=== PATIENT | female | born 1950 | race Caucasian/White ===

== ENCOUNTER 2021-07-09 15:30 | Emergency (ER) | payer OTHER ==
--- OUTSIDE RECORDS SUMMARY | 2021-07-09 15:34 | XMS REPORT | Continuity of Care Document ---
:1950 Author Organization [facility] t Address [address] [place] [address] Care Team Providers Name Role Phone Provider, [facility] Attending Clinician Unavailable Hermes RN Attending Clinician Unavailable Only, Jeffy Test Attending Clinician Unavailable Mamadou JOB CAPTAIN Attending Clinician Karol RN, T Attending Clinician Unavailable Clinton ALEXANDERP Attending Clinician PENNIE Attending Clinician Unavailable LESIA Attending Clinician Unavailable KIRBY Attending Clinician Unavailable GABRIELLE Attending Clinician Unavailable YINA Attending Clinician Unavailable Halina Attending Clinician Unavailable OSMAN Attending Clinician Unavailable RILEY Attending Clinician Unavailable Physician, Primary or Family Admitting Clinician Unavailabl e Payers Payer Name Policy Type Policy Number Effective Date Expiration Date S ource Problems Condition Condition Condition Status Onset Resolution Last Treating Co mments Source Name Details Category Date Date Treatment Clinician Date Z.31 - Diagnosis Active 2016-08-17 M emoria ENCNTR - 11:09:00 l SCREEN Z12.31 - :01: Blaine banks MAMMOGRAM ENCNTR 00 FOR MA SCREEN MAMMOGRAM FOR MA Active 07/15/2016 CECILIO Christine V76.12 - Diagnosis Active 2013-12-21 M emoria SCREEN - 12:57:00 l MAMMOGRA V76.12 - 00:01: Obed lowry SCREEN 00 MAMMOGRA Active 12/09/2013 CECILIO Christine Allergies, Adverse Reactions, Alerts Allergy Allergy Status Severity Reaction(s) Onset Inactive Treating Comm ents Source Name Type Date Date Clinician [place] DA Active PR 2009-0 [facility] [place] [facility] [place] DA Active PR ABDOMINAL 2009-0 [facility] [place] [facility] [place] [facility] PENICILL DA Active U ABDOMINAL 2008-0 [facility] [place] -[facility] [place] [facility] Social History Social Habit Start Date Stop Date Quantity Comments Source Exposure to Not sure [facility] SARS-CoV-2 (event) [facility] [place] Social History 2016-09-07 2016-09-07 [facility] 04:59:00 04:59:00 Sex Assigned At [address] 1950 [facility] 00:00:00 00:00:00 [facility] Smoking Status Start Date Stop Date Source Unknown if ever smoked [facility] Medications This patient has no known medications. Procedures This patient has no known procedures. Encounters Start End Encounter Admission Attending Care Care Encounter Source Date/Time Date/Time Type Type Clinicians Facility Department ID 2021-07-06 2021-07-06 Letter Provider, [facility] [id number] [facility] 00:00:00 00:00:00 (Out) Ang Db HEALTH 350.1.13.10 it y of Urgent Care [place] 4.2.7.2.686 [place] JERRY?BLEA [id number] [address] MEDICAL OFFICE BUILDING 2021-07-04 2021-07-04 Telephone JOSE ARMANDO Mirza [id number] Univers 00:00:00 00:00:00 Cinda CAIN 350.1.13.10 it y of HOSPITAL 4.2.7.2.686 [place] as [id number] [address] 2021-07-03 2021-07-03 Laboratory Only, Ang Db Test [facility] 1.2.8 40.114 [id number] Univers 10:45:00 11:00:00 Only Green, Alexandra HEALTH 350.1.13.10 ity of BLANCH 4.2.7.2.686 Mik as JERRY?BLEA [id number] Wy dical [address] MEDICAL OFFICE BUILDING 2021-06-25 2021-06-25 Letter Provider, [facility] [id number] Univers 00:00:00 00:00:00 (Out) Ang Db HEALTH 350.1.13.10 it y of Urgent Care SURGICAL 4.2.7.2.686 [place] SPECIALTI [id number] [address] 2021-06-23 2021-06-23 Letter JOSE ARMANDO Roberson [id number] Univers 00:00:00 00:00:00 (Out) Kaley Bolaños CAIN 350.1.13.10 it y of HOSPITAL 4.2.7.2.686 Mik as [id number] [address] 2021-06-22 2021-06-22 Laboratory Only, Ang Db Test [facility] 1.2.8 40.114 [id number] Univers 13:15:00 13:30:00 Only Marcella Alonzoy HEALTH 350.1.13.10 ity of [place]AN[place] 4.2.7.2.686 Mik as JERRY?BLEA [id number] [address] MEDICAL OFFICE [facility] 2021-05-31 2021-05-31 Outpatient PENNIE [facility] [id number] [place] 00:00:00 00:00:00 YADIEL [address] 2021-04-27 2021-04-27 Outpatient GRAF, [facility] [id number] [place] 00:00:00 00:00:00 RUDY [address] 2021-04-27 2021-04-27 Outpatient KIRBY BERTO [facility] [id number] [place] 00:00:00 00:00:00 687 [address] 2021-04-19 2021-04-19 Outpatient GABRIELLE [facility] [id number] [place] 00:00:00 00:00:00 TAISHA 952 [address] 2021-03-30 2021-03-30 Outpatient PENNIE [facility] [id number] [place] 00:00:00 00:00:00 YADIEL [address] 2021-02-15 2021-02-15 Outpatient GABRIELLE [facility] [id number] [place] 00:00:00 00:00:00 TAISHA [address] 2021-01-18 2021-01-18 Outpatient GABRIELLE, [facility] [id number] [place] 00:00:00 00:00:00 TAISHA [address] 2020-10-12 2020-10-12 Outpatient GABRIELLE, [facility] [id number] [place] 00:00:00 00:00:00 TAISHA [address] 2020-09-29 2020-10-02 Outpatient BRAN, [facility] [id number] [place] 00:00:00 00:00:[address] 2020-09-22 2020-09-22 Outpatient BRAN, [facility] [id number] [place] 00:00:00 00:00:00 NANI [address] 2020-09-22 2020-09-22 Outpatient BRAN, [facility] [id number] [place] 00:00:00 00:00:00 NANI 7[address] 2020-09-21 2020-09-21 Outpatient Halina, [facility] [id number] [facility] 12:00:00 12:00:00 Monica [id number] [facility] 2020-09-07 2020-09-07 Outpatient BRAN, [facility] [id number] [place] 00:00:00 00:00:00 NANI [address] 2020-09-07 2020-09-07 Outpatient BRAN, [facility] [id number] [place] 00:00:00 00:00:00 NANI [address] 2020-09-07 2020-09-07 Outpatient BRAN, [facility] [id number] [place] 00:00:00 00:00:00 NANI [address] 2020-09-01 2020-09-01 Outpatient [facility] [id number] [place] 00:00:00 00:00:[address] 2020-08-04 2020-08-04 Outpatient ROBBEN, [facility] [id number] [place] 00:00:00 00:00:00 ERNIE [address] 2020-07-14 2020-07-14 Outpatient [facility] [id number] [place] 00:00:00 00:00:[address] 2020-06-30 2020-06-30 Outpatient BRAN, [facility] [id number] [place] 00:00:00 00:00:00 NANI [address] 2020-06-22 2020-06-22 Outpatient RILEY, [facility] [id number] [place] 00:00:00 00:00:00 DONTAE [address] 2020-06-08 2020-06-08 Outpatient GABRIELLE, [facility] [id number] [place] 00:00:00 00:00:00 TAISHA [address] 2020-06-02 2020-06-02 Outpatient BRAN, [facility] [id number] [place] 00:00:00 00:00:00 NANI [address] 2020-05-17 2020-05-17 Outpatient RILEY, [facility] [id number] [place] 00:00:00 00:00:00 DONTAE [address] 2020-04-28 2020-04-28 Outpatient BRAN, [facility] [id number] [place] 00:00:00 00:00:00 NANI [address] 2020-04-28 2020-04-28 Outpatient BRAN, [facility] [id number] [place] 00:00:00 00:00:00 NANI [address] 2020-04-20 2020-04-20 Outpatient BRAN, [facility] [id number] [place] 00:00:00 00:00:00 NANI [address] 2020-03-10 2020-03-10 Outpatient BRAN, [facility] [id number] [place] 00:00:00 00:00:00 NANI [address] 2020-03-10 2020-03-10 Outpatient GABRIELLE, [facility] [id number] [place] 00:00:00 00:00:00 TAISHA [address] 2020-02-24 2020-02-24 Outpatient GABRIELLE, [facility] [id number] [place] 00:00:00 00:00:00 TAISHA [address] 2020-02-18 2020-02-18 Outpatient GABRIELLE, [facility] [id number] [place] 00:00:00 00:00:00 TAISHA [address] 2020-02-11 2020-02-11 Outpatient GABRIELLE, [facility] [id number] [place] 00:00:00 00:00:00 TAISHA [address] 2020-02-04 2020-02-04 Outpatient GABRIELLE, [facility] [id number] [place] 00:00:00 00:00:00 TAISHA [address] 2020-01-28 2020-01-28 Outpatient GABRIELLE, [facility] [id number] [place] 00:00:00 00:00:00 TAISHA [address] 2019-12-29 2019-12-29 Outpatient GABRIELLE, [facility] [id number] [place] 00:00:00 00:00:00 TAISHA [address] 2019-11-10 2019-11-10 Outpatient GABRIELLE, [facility] [id number] [place] 00:00:00 00:00:00 TAISHA [address] 2019-09-27 2019-09-28 Outpatient GABRIELLE, [facility] [id number] [place] 00:00:00 00:00:00 TAISHA [address] 2019-08-20 2019-08-20 Outpatient Halina, [facility] [id number] [facility] 12:00:00 12:00:00 Monica [id number] [facility] 2019-08-12 2019-08-12 Outpatient GABRIELLE, [facility] [id number] [place] 00:00:00 00:00:00 TAISHA [address] 2016-09-06 2016-09-07 Outpt Diag nullFlavo [facility] [id number] [place] 18:47:00 04:59:00 Services r Outpatient 08 l Imaging [facility] 2016-08-17 2016-08-18 Outpt Diag nullFlavo [facility] [id number] [place] 17:00:00 05:59:00 Services r Outpatient 07 l Imaging [facility] 2014-12-16 2014-12-17 Outpt Diag nullFlavo [facility] [id number] [place] 20:02:00 04:59:00 Services r Outpatient 06 l Imaging Fawad [place] 2013-12-16 2013-12-17 Outpt Diag nullFlavo [facility] [id number] [place] 19:36:00 04:59:00 Services r Outpatient 05 l Imaging Fawad [place] 2013-12-14 2013-12-15 Outpt Diag nullFlavo [facility] [id number] [place] 21:14:00 04:59:00 Services r Outpatient 04 l Katie Celestin [place] 2011-05-28 2011-05-28 [facility] [id number] Mem[place] 14:13:00 14:13:00 00 l Fawad Results This patient has no known results.
[2021-07-09] MEDS ORDERED: ACETAMINOPHEN 500 MG TAB ONE (16:41)
--- NOTE | 2021-07-09 17:11 | RAD REPORT ---
EXAM DESCRIPTION: RAD - Hip Right 2 View - 07/09/2021 5:05 pm CLINICAL HISTORY: PAIN COMPARISON: No comparisons FINDINGS: AP and frog-leg views of the right hip were obtained. Film technique was not optimal. There is no fracture or dislocation. No AVN or focal head abnormality . Degenerative changes are present along the superior acetabular rim. Medial joint space is narrowed. SI joint degenerative change seen on the right. Sacral ala on the right appears intact but is too ob scured by bowel for full assessment on this study. No diastases of the SI joint or pubic symphysis. IMPRESSION: Negative right hip examination for acute findings.
--- NOTE | 2021-07-09 17:12 | RAD REPORT ---
EXAM DESCRIPTION: RAD - Hip Left 2 View - 07/09/2021 5:05 pm CLINICAL HISTORY: PAIN, fall COMPARISON: No comparisons FINDINGS: AP and frogleg views of the left hip were obtained. There is no fracture or dislocation. No acute or destructive bony process seen. Mild degenerative ch anges are present along the superior acetabular rim, less prominent than seen on the right. Medial kailey int space is narrowed. Mild SI joint degenerative change seen. Sacral ala on the left is too obscured by bowel content to allow assessment on this examination. No suspicious soft tissue finding. Arterial tree calcifications are present. IMPRESSION: Negative left hip examination for acute findings.
--- NOTE | 2021-07-09 17:13 | RAD REPORT ---
EXAM DESCRIPTION: RAD - Humerus Left - 07/09/2021 5:05 pm CLINICAL HISTORY: Arm and shoulder pain, fall COMPARISON: None. FINDINGS: No fracture is identified. There is no dislocation or periosteal reaction noted. No forei gn body or other soft tissue abnormality. No significant AC joint finding. Acromial humeral joint spa ce is normal. IMPRESSION: Negative left humerus examination for acute or significant finding.
--- NOTE | 2021-07-09 17:15 | RAD REPORT ---
EXAM DESCRIPTION: RAD - Chest Single View - 07/09/2021 5:05 pm CLINICAL HISTORY: TRAUMA, fall COMPARISON: None TECHNIQUE: AP portable chest image was obtained 07/09/2021 5:05 pm . FINDINGS: Lung volumes are low. No pneumothorax or pulmonary contusion. Stranding at the left base i s favored to be atelectasis rather than traumatic lung disease or infection. No failure or volume ove rload. Heart and vasculature are normal. No measurable pleural effusion and no pneumothorax. No acute bony abnormality seen. No acute aortic findings suspected. IMPRESSION: As detailed above, no acute cardiopulmonary finding suspected.
--- NOTE | 2021-07-09 17:24 | RAD REPORT ---
EXAM DESCRIPTION: CT - CTHCSPWOC - 07/09/2021 4:55 pm CLINICAL HISTORY: Fall, head injury, neck pain COMPARISON: No comparisons TECHNIQUE: Axial 5 mm thick images of the head were obtained. Axial 2 mm thick images of the cervic al spine were obtained with sagittal and coronal reconstruction images generated and reviewed. All CT scans are performed using dose optimization technique as appropriate and may include automated exposure control or mA/KV adjustment according to patient size. FINDINGS: No intracranial hemorrhage, mass, edema or acute intracranial finding. No suspicion for ac walker river infarction. No extra-axial fluid collections. Mastoid air cells and paranasal sinuses are clear o f acute finding. No globe or orbit abnormality seen. Atrophy and chronic ischemic changes are mild. V entricles are within normal range for any small amount of volume loss. Cervical body height and alignment are normal. C5-6 and C6-7 disc space narrowing present with minima l posterior endplate spurring. No significant bony foraminal encroachment changes identified. Mild fa cet joint degenerative changes are present. No fracture or acute bony abnormality. Central canal det ail is inherently limited. No paraspinal mass or hematoma. Condyles of the mandible are normally positioned in each bony glenoid fossa. Imaged portions of the mandible are intact. IMPRESSION: Negative CT head examination for acute or significant finding. Negative CT cervical spine examination for acute or significant finding.
[2021-07-09 17:26] LABS: Absolute Lymphocytes (CBC) 0.3 K/uL (0.7-4.9); Hematocrit 30.3 % (36.0-45.0); Lymphocytes % 8.5 % (15.3-44.8); MPV 9.4 fL (7.6-11.3); RBC Red Blood Cell Count 3.65 M/uL (3.86-4.86)
[2021-07-09 17:27] LABS: Protime INR 1.14
[2021-07-09 17:44] LABS: Bilirubin Direct 0.1 mg/dL (0-0.2); Bilirubin Total 0.4 mg/dL (0.2-1.0); Magnesium 1.5 mg/dL (1.8-2.4); Potassium 4.1 mmol/L (3.5-5.1); Protein, Total 6.6 g/dL (6.4-8.2)
[2021-07-09 17:47] LABS: SARS-COV-2 RT PCR POSITIVE (NEGATIVE)
--- NOTE | 2021-07-09 21:03 | RAD REPORT ---
EXAM DESCRIPTION: CT - Chest For Pe Angio - 07/09/2021 8:53 pm CLINICAL HISTORY: elevated troponin, weakness COMPARISON: Head C Spine Mpr Wo Con dated 07/09/2021 TECHNIQUE: Dynamically enhanced 3 mm thick images of the chest were obtained during administration o f approximately 150mL Isovue 370 IV contrast. Coronal and oblique MIP reconstruction images were gene rated and reviewed. Exam utilizes a protocol to evaluate the pulmonary arterial tree. All CT scans are performed using dose optimization technique as appropriate and may include automated exposure control or mA/KV adjustment according to patient size. FINDINGS: No pulmonary emboli are identified. The aorta as imaged shows no acute or suspicious finding. No pericardial thickening or effusion. Subpleural fibrotic stranding changes are present in each upper lobe. Interstitial and alveolar opaci ties are present and more pronounced in each posterior lower lung field. There is some consolidation in the posterior gutter on the left. Hilar reactive lymph nodes are present. No pleural effusion or p leural thickening. No mediastinal or hilar suspicious masses. No chest wall masses or abnormal axillary lymphadenopathy. IMPRESSION: No pulmonary emboli identified. Interstitial and alveolar opacification in each posterior gutter on this study without remote compari son. Posterior lung field findings are suspected to be acute infiltrates superimposed on scattered fi brotic lung change.
[2021-07-09] MEDS ORDERED: NA CHLORIDE 0.9% 500 ML ONE (21:45)
--- NOTE | 2021-07-10 00:13 | EDPHYS ---
Physician Documentation [facility] Name: Ana Grant Age: 71 yrs Sex: Female : 1950 Arrival Date: 07/09/2021 Time: 15:37 Bed 8 Private MD: ED Physician Ky Harvey HPI: 07/09 16:12 This 71 yrs old Female presents to ER via EMS with complaints of Weakness. pm1 16:12 The patient presents to the emergency department with weakness of the entire body, pm1 generalized weakness. Onset: The symptoms/episode began/occurred 3 week(s) ago. Context: Due to covid. Associated signs and symptoms: Pertinent positives: dizziness, Chills, fever, body aches. Two falls, fell 4 days ago and today. The patient has not experienced similar symptoms in the past. The patient has not recently seen a physician. 71-year-old patient was diagnosed with Covid approximately 3 weeks ago. Patient with presentation to the ER with complaints of generalized weakness since diagnosis of Covid. Reports chills fever and generalized body aches. She has had 2 falls. 4 days ago she had a fall with resulting injury of abrasion to left side of forehead. Patient had difficulty getting up and required her grandson to come and pick her up. Today patient fell while trying to bathe in the bathtub. With fall today no head injury, headache, neck pain, LOC.. Historical: - Allergies: 17:39 PENICILLINS; ph - PMHx: 17:39 diabetes mellitus; Leukemia; neuropathy; Suppressed Immune System; ph - Immunization history:: Adult Immunizations unknown, Client reports receiving the 2nd dose of the Covid vaccine. - Social history:: Smoking status: Patient denies any tobacco usage or history of. ROS: 16:12 Cardiovascular: Negative for chest pain, palpitations, and edema, Respiratory: Negative pm1 for shortness of breath, cough, wheezing, and pleuritic chest pain, Abdomen/GI: Negative for abdominal pain, nausea, vomiting, diarrhea, and constipation. 16:12 MS/Extremity: Negative for injury and deformity, Skin: Negative for injury, rash, and discoloration. 16:12 Constitutional: Positive for body aches, chills, fever, Negative for poor PO intake. 16:12 Neuro: Positive for dizziness, generalized weakness, Negative for headache, numbness, syncope, near syncope, tingling. 16:12 All other systems are negative. Exam: 16:12 Constitutional: This is a well developed, well nourished patient who is awake, alert, pm1 and in no acute distress. 16:12 Skin: Warm, dry with normal turgor. Normal color with no rashes, no lesions, and no evidence of cellulitis. MS/ Extremity: Pulses equal, no cyanosis. Neurovascular intact. Full, normal range of motion. Tenderness to left upper humerus, and bilateral hips. Patient able to move bilateral hips and shoulders with active FROM 16:12 Head/face: Noted is no obvious of injury or deformity except abrasion(s), of the left side of forehead - small healing abrasion. 16:12 Eyes: Exam is negative for acute changes, Extraocular movements: no acute changes, Conjunctiva: no acute changes, no injection. 16:12 ENT: Exam is negative for acute changes, Mouth: no acute changes, Lips: normal, moist, Oral mucosa: normal, pink and intact, moist. 16:12 Neck: Exam negative for External neck: no acute changes, C-spine: vertebral tenderness, is not appreciated, ROM/movement: no acute changes. 16:12 Cardiovascular: Exam negative for acute changes, Rate: normal, Rhythm: regular, Pulses: no pulse deficits are appreciated. 16:12 Respiratory: Exam negative for acute changes, respiratory distress, shortness of breath, Breath sounds: are clear throughout. 16:12 Abdomen/GI: Inspection: abdomen appears normal, Palpation: abdomen is soft and non-tender, in all quadrants. 16:12 Neuro: Exam negative for acute changes, Orientation: is normal, Mentation: is normal, Motor: is normal, moves all fours. Vital Signs: 15:38 BP 157 / 52; Pulse 93; Resp 18; Temp 100.0; Pulse Ox 96% on R/A; Weight 68.04 kg; ph Height 5 ft. 3 in. (160.02 cm); 17:29 BP 150 / 65; Pulse 92; Resp 18; Pulse Ox 97% on R/A; ph 18:01 BP 150 / 65; Pulse 89; Resp 18; Pulse Ox 96% on R/A; ph 19:07 BP 112 / 61; Pulse 85; Resp 18; Pulse Ox 96% on R/A; ph 20:00 BP 146 / 61; Pulse 82; Resp 20; Pulse Ox 98% ; al4 21:30 BP 118 / 47; Pulse 67; Resp 22; Pulse Ox 96% ; al4 22:30 BP 125 / 44; Pulse 65; Resp 22; Pulse Ox 96% ; al4 23:30 BP 120 / 50; Pulse 67; Resp 22; Pulse Ox 97% ; al4 07/10 00:00 BP 127 / 45; Pulse 67; Resp 22; Pulse Ox 95% ; al4 00:30 BP 157 / 50; Pulse 73; Resp 22 S; Pulse Ox 98% on R/A; al4 07/09 15:38 Body Mass Index 26.57 (68.04 kg, 160.02 cm) ph MDM: 07/09 15:52 Patient medically screened. pm1 07/10 00:11 Data reviewed: vital signs. Data interpreted: Pulse oximetry: on room air is 96 %. pm1 Interpretation: normal. Counseling: I had a detailed discussion with the patient and/or guardian regarding: the historical points, exam findings, and any diagnostic results supporting the discharge/admit diagnosis, lab results, radiology results, the need for outpatient follow up, to return to the emergency department if symptoms worsen or persist or if there are any questions or concerns that arise at home. 07/09 16:03 Order name: COVID-19/FLU A+B (Document "Date of Onset" if Symptomatic); Complete Time: pm1 18:40 07/09 16:06 Order name: Basic Metabolic Panel pm1 07/09 16:06 Order name: CBC with Diff; Complete Time: 18:40 pm07/09 16:06 Order name: LFT's; Complete Time: 18:43 pm07/09 16:06 Order name: Magnesium; Complete Time: 18:43 pm07/09 16:06 Order name: NT PRO-BNP; Complete Time: 18:43 pm07/09 16:04 Order name: CT Head C Spine; Complete Time: 18:40 pm1 07/09 16:04 Order name: Hip Left 2 View XRAY; Complete Time: 18:40 pm1 07/09 16:04 Order name: Hip Right 2 View XRAY; Complete Time: 18:40 pm1 07/09 16:06 Order name: PT-INR; Complete Time: 18:40 pm1 07/09 16:06 Order name: Troponin HS; Complete Time: 18:43 pm1 07/09 16:06 Order name: Basic Metabolic Panel; Complete Time: 18:43 EDMS 07/09 18:44 Order name: CPK; Complete Time: 20:01 pm1 07/09 21:16 Order name: Troponin High Sensitivity; Complete Time: 00:05 pm1 07/09 16:04 Order name: Humerus Left XRAY; Complete Time: 18:40 pm1 07/09 16:06 Order name: XRAY Chest (1 view); Complete Time: 18:40 pm1 07/09 16:06 Order name: EKG; Complete Time: 16:06 pm1 07/09 16:06 Order name: Cardiac monitoring; Complete Time: 17:28 pm1 07/09 16:06 Order name: EKG - Nurse/Tech; Complete Time: 17:28 pm1 07/09 16:06 Order name: IV Saline Lock; Complete Time: 17:28 pm1 07/09 16:06 Order name: Labs collected and sent; Complete Time: 17:28 pm07/09 16:06 Order name: O2 Per Protocol; Complete Time: 16:27 pm1 07/09 16:06 Order name: O2 Sat Monitoring; Complete Time: 16:26 pm1 07/09 20:06 Order name: CT Chest For PE Angio; Complete Time: 21:16 pm1 Administered Medications: 07/09 17:29 Drug: Tylenol 1000 mg Route: PO; ph 18:41 Follow up: Response: No adverse reaction ph 21:44 Drug: NS 0.9% 500 ml Route: IV; Rate: bolus; Site: left antecubital; st1 07/10 00:27 Follow up: Response: No adverse reaction; IV Status: Completed infusion; IV Intake: al4 500ml Disposition: 09:01 Co-signature as Attending Physician, Ky Harvey MD I agree with the assessment and kdr plan of care. Disposition Summary: 07/10/21 00:12 Discharge Ordered Location: Home pm1 Problem: new pm1 Symptoms: have improved pm1 Condition: Stable pm1 Diagnosis - Coronavirus infection, unspecified pm1 Followup: pm1 - With: Emergency Department - When: As needed - Reason: Worsening of condition Followup: pm1 - With: Private Physician - When: 2 - 3 days - Reason: Recheck today's complaints, Continuance of care, Re-evaluation by your physician Discharge Instructions: - Discharge Summary Sheet pm1 - COVID-19 pm1 - COVID-19 Frequently Asked Questions pm1 - 10 Things You Can Do to Manage Your COVID-19 Symptoms at Home - [facility] pm1 - COVID-19: Quarantine vs. Isolation - [facility] pm1 Forms: - Medication Reconciliation Form pm1 - Thank You Letter pm1 - Antibiotic Education pm1 - Prescription Opioid Use pm1 Signatures: Dispatcher [employer] EDMS Ky Harvey MD MD [facility] Beverly Esparza RN RN ph Kamran Wilcox NP [employer] pm1 Tiffany Alvarez RN RN st1 Jerome Garcia al4 Corrections: (The following items were deleted from the chart) 01:26 07/09 16:06 Urine Dipstick-Ancillary ordered. pm1 al4
--- NOTE | 2021-07-10 00:13 | ER ---
Nurse's Notes [facility] Name: Ana Grant Age: 71 yrs Sex: Female : 1950 Arrival Date: 07/09/2021 Time: 15:37 Bed 8 Private MD: Diagnosis: Coronavirus infection, unspecified Presentation: 07/09 15:38 Chief complaint: EMS states: Pt covid +, reports generalized weakness, dizziness and ph repeated falls, fell this morning at approx 0400 am and was unable to get up from floor. Spo2 97% RA and all other VSS. Coronavirus screen: Vaccine status: Patient reports receiving the 2nd dose of the covid vaccine. Ebola Screen: No symptoms or risks identified at this time. Initial Sepsis Screen: Does the patient meet any 2 criteria? No. Patient's initial sepsis screen is negative. Does the patient have a suspected source of infection? No. Patient's initial sepsis screen is negative. Risk Assessment: Do you want to hurt yourself or someone else? Patient reports no desire to harm self or others. Onset of symptoms was July 09, 2021. 15:38 Method Of Arrival: EMS: [facility] ph 15:38 Acuity: TESSA 3 ph Historical: - Allergies: 17:39 PENICILLINS; ph - PMHx: 17:39 diabetes mellitus; Leukemia; neuropathy; Suppressed Immune System; ph - Immunization history:: Adult Immunizations unknown, Client reports receiving the 2nd dose of the Covid vaccine. - Social history:: Smoking status: Patient denies any tobacco usage or history of. Screenin:39 Abuse screen: Denies threats or abuse. Denies injuries from another. Nutritional ph screening: No deficits noted. Tuberculosis screening: No symptoms or risk factors identified. Fall Risk Fall in past 12 months (25 points). No secondary diagnosis (0 pts). IV access (20 points). Ambulatory Aid- None/Bed Rest/Nurse Assist (0 pts). Gait- Weak (10 pts.). Mental Status- Oriented to own ability (0 pts). Total Gonzalez Fall Scale indicates High Risk Score (45 or more points). Fall prevention measures have been instituted. Side Rails Up X 2 Placed Close to Nursing Station Frequent Obs/Assessments Occuring As available patient and family educated on Fall Prevention Program and Strategies. Assessment: 16:30 General: Appears in no apparent distress. uncomfortable, well groomed, Behavior is ph calm, cooperative, appropriate for age, Reports chills for fever for fatigue for >3 days. Pain: Complains of pain in "all over". Neuro: Level of Consciousness is awake, alert, obeys commands, Oriented to person, place, time, situation, Reports headache general weakness. Cardiovascular: Denies chest pain, shortness of breath, Capillary refill < 3 seconds in bilateral fingers Rhythm is sinus rhythm. Respiratory: Airway is patent Respiratory effort is even, unlabored, Respiratory pattern is regular, symmetrical. Respiratory: Reports cough that is Denies shortness of breath. GI: No signs and/or symptoms were reported involving the gastrointestinal system. Derm: Skin is healthy with good turgor, Skin is pink, warm \\T\\ dry. Musculoskeletal: Circulation, motion, and sensation intact. Range of motion: intact in all extremities. Injury Description: Abrasion sustained to left side of forehead. 17:57 Reassessment: Patient appears in no apparent distress at this time. Patient and/or ph family updated on plan of care and expected duration. Pain level reassessed. Patient is alert, oriented x 3, equal unlabored respirations, skin warm/dry/pink. Pt states, "I'm so hot, and I'm hungry." Assisted pt to change out of [facility] into hospital gown, removed blankets and provided pt w/ food tray after getting okay from ERP. 19:06 Reassessment: Patient appears in no apparent distress at this time. Patient and/or ph family updated on plan of care and expected duration. Pain level reassessed. Patient is alert, oriented x 3, equal unlabored respirations, skin warm/dry/pink. Katt Valdes [phone]. 20:20 General: Appears in no apparent distress. comfortable, Behavior is calm, cooperative, al4 appropriate for age, patient is resting comfortably in bed. . Pain: Denies pain. Neuro: Level of Consciousness is awake, alert, obeys commands, Oriented to person, place, time, situation. Cardiovascular: Denies chest pain, shortness of breath, Capillary refill < 3 seconds Patient's skin is warm and dry. Rhythm is sinus rhythm. Respiratory: Airway is patent Respiratory effort is even, unlabored, Respiratory pattern is regular, symmetrical. GI: No signs and/or symptoms were reported involving the gastrointestinal system. : No signs and/or symptoms were reported regarding the genitourinary system. EENT: No signs and/or symptoms were reported regarding the EENT system. Derm: Skin is pink, warm \\T\\ dry. abrasion on left side of forehead. Musculoskeletal: Circulation, motion, and sensation intact. Range of motion: intact in all extremities. Injury Description: Abrasion sustained to left side of forehead. 21:30 Reassessment: Patient is alert, oriented x 3, equal unlabored respirations, skin al4 warm/dry/pink. patient ambulated with assistance to the [facility]. 23:30 Reassessment: Patient and/or family updated on plan of care and expected duration. Pain al4 level reassessed. 07/10 00:38 Reassessment: Physician clarified that he does not need the urine dipstick before al4 patient is discharged. 00:39 Reassessment: Patient is alert, oriented x 3, equal unlabored respirations, skin al4 warm/dry/pink. Patient denies pain at this time. Grandson has been called and is coming to pick pulling machine tender the patient. . 01:24 Reassessment: Patient is alert, oriented x 3, equal unlabored respirations, skin al4 warm/dry/pink. patient assisted to vehicle by myself and her grandson. Vital Signs: 07/09 15:38 BP 157 / 52; Pulse 93; Resp 18; Temp 100.0; Pulse Ox 96% on R/A; Weight 68.04 kg; ph Height 5 ft. 3 in. (160.02 cm); 17:29 BP 150 / 65; Pulse 92; Resp 18; Pulse Ox 97% on R/A; ph 18:01 BP 150 / 65; Pulse 89; Resp 18; Pulse Ox 96% on R/A; ph 19:07 BP 112 / 61; Pulse 85; Resp 18; Pulse Ox 96% on R/A; ph 20:00 BP 146 / 61; Pulse 82; Resp 20; Pulse Ox 98% ; al4 21:30 BP 118 / 47; Pulse 67; Resp 22; Pulse Ox 96% ; al4 22:30 BP 125 / 44; Pulse 65; Resp 22; Pulse Ox 96% ; al4 23:30 BP 120 / 50; Pulse 67; Resp 22; Pulse Ox 97% ; al4 07/10 00:00 BP 127 / 45; Pulse 67; Resp 22; Pulse Ox 95% ; al4 00:30 BP 157 / 50; Pulse 73; Resp 22 S; Pulse Ox 98% on R/A; al4 07/09 15:38 Body Mass Index 26.57 (68.04 kg, 160.02 cm) ph ED Course: 07/09 15:37 Patient arrived in ED. iw 15:38 Beverly Esparza, GABRIELLE is Primary Nurse. ph 15:41 Triage completed. ph 15:51 Kamran Wilcox NP is PHCP. pm1 15:51 Ky Harvey MD is Attending Physician. pm1 16:54 CT Head C Spine In Process Unspecified. EDMS 17:05 Hip Left 2 View XRAY In Process Unspecified. EDMS 17:05 Hip Right 2 View XRAY In Process Unspecified. EDMS 17:05 Humerus Left XRAY In Process Unspecified. EDMS 17:05 XRAY Chest (1 view) In Process Unspecified. EDMS 17:13 Initial lab(s) drawn, by or, sent to lab. Inserted saline lock: 20 gauge in left dh3 antecubital area, using aseptic technique. Blood collected. 17:24 EKG done, by ED staff, reviewed by Kamran Wilcox NP. dh3 17:39 Arm band placed on. ph 17:39 Patient has correct armband on for positive identification. Placed in gown. Bed in low ph position. Side rails up X2. awake overnight monitor on. Pulse ox on. NIBP on. Door closed. Noise minimized. Warm blanket given. 19:28 Basic Metabolic Panel Sent. st1 20:53 CT Chest For PE Angio In Process Unspecified. EDMS 07/10 00:40 IV discontinued, intact, bleeding controlled, No redness/swelling at site. Pressure al4 dressing applied. 00:40 No provider procedures requiring assistance completed. al4 Administered Medications: 07/09 17:29 Drug: Tylenol 1000 mg Route: PO; ph 18:41 Follow up: Response: No adverse reaction ph 21:44 Drug: NS 0.9% 500 ml Route: IV; Rate: bolus; Site: left antecubital; st1 07/10 00:27 Follow up: Response: No adverse reaction; IV Status: Completed infusion; IV Intake: al4 500ml Intake: 00:27 IV: 500ml; Total: 500ml. al4 Outcome: 00:12 Discharge ordered by . pm1 00:40 Discharged to home ambulatory, with family. al4 00:40 Condition: stable 00:40 Discharge instructions given to patient, Instructed on discharge instructions, follow up and referral plans. Demonstrated understanding of instructions, follow-up care, Prescriptions given X 0 01:26 Patient left the ED. al4 Signatures: Dispatcher [employer] EDChiquita Ware RN RN Beverly Esparza RN RN ph Kamran Wilcox, SUZANNA ROLLER TURNER pm1 Darlin Le 3 Jerome Garcia al4 Tiffany Alvarez, RN RN st1 Corrections: (The following items were deleted from the chart) 00:27 07/09 22:30 IV Intake: 500ml al4 al4
[2021-07-10 04:54] VITALS: TEMP 100
[2021-07-10 05:06] VITALS: BP 157/50; O2SAT 98
--- NOTE | 2021-07-10 08:24 | EKG ---
Test Date: 2021-07-09 Test Time: 17:18:42 Carpenter/Labor: NELSON MEASUREMENT RESULTS: Intervals: Rate: 87 ME: 152 QRSD: 80 QT: 390 QTc: 469 [place]: P: 65 ME: 152 QRS: 63 T: 59 INTERPRETIVE STATEMENTS: Normal sinus rhythm Normal ECG No previous ECG available for comparison Electronically Signed On 07-10-21 08:22:23 CLEANING PORTER by Lazaro Yuen
== END 2021-07-10 01:26 | disposition home or self-care (01) ==
LOC: ER 15:30
DX: U07.1 COVID-19 (principal); E11.9 Type 2 diabetes mellitus without complications; Z88.5 Allergy status to narcotic agent
CPT/HCPCS: 93005; 85025; 80048; 36415; 83735; 82550; 85610; 80076; 84484 ×2; 83880; 0240U; 70450; 72125; 71275; 71045; 73502 ×2; 73060; Q9967; J7040

== ENCOUNTER 2021-07-10 15:03 | Inpatient (IN) | payer OTHER ==
--- OUTSIDE RECORDS SUMMARY | 2021-07-10 15:05 | XMS REPORT | Continuity of Care Document ---
:1950 Author Organization [facility] t Address [address] [place] [address] Care Team Providers Name Role Phone Provider, [facility] Attending Clinician Unavailable Hermes RN Attending Clinician Unavailable Only, Jeffy Test Attending Clinician Unavailable Mamadou WATER MAIN INSTALLER HELPER Attending Clinician Karol ANTHONY, T Attending Clinician Unavailable Clinton WATER MAIN INSTALLER HELPER Attending Clinician PENNIE Attending Clinician Unavailable LESIA [...] M emoria ENCNTR - 11:09:00 l SCREEN Z12. - 00:01: Blaine banks MAMMOGRAM ENCNTR 00 FOR MA SCREEN MAMMOGRAM FOR MA Active 07/15/2016 CECILIO Christine V76.12 - Diagnosis Active 2013-12-21 M emoria SCREEN - 12:57:00 l MAMMOGRA V76.12 - 00:01: Obed lowry SCREEN 00 MAMMOGRA Active 12/09/2013 CECILIO Christine Allergies, Adverse Reactions, Alerts Allergy Allergy Status Severity Reaction(s) Onset Inactive Treating Comm ents Source Name Type Date Date Clinician [place] [facility] [place] [facility] [place] [facility] [facility] [place] [facility] [place] [facility] PEN[place]ILL DA Active U ABDOMINAL 2008-0 [facility] [place] [facility] [place] [facility] d 00 [facility] Social History Social Habit Start Date Stop Date Quantity Comments Source Exposure to Not sure [facility] SARS-CoV-2 (event) Medica l [place] Social History 2016-09-07 2016-09-07 [facility] 04:59:00 04:59:00 Sex Assigned At [birth year] [facility] 00:00:00 00:00:00 [facility] Smoking Status Start Date Stop Date Source Unknown if ever smoked [facility] Medications This patient has no known medications. Procedures This patient has no known procedures. Encounters Start End Encounter Admission Attending Care Care Encounter Source Date/Time Date/Time Type Type Clinicians Facility Department ID 2021-07-06 2021-07-06 Letter Provider, [facility] [id number] [facility] 00:00:00 00:00:00 (Out) Ang Db HEALTH 350.1.13.10 it y of Urgent Care [place] 4.2.7.2.686 [place] JERRY?BLEA [phone] [address] MEDICAL OFFICE BUILDING 2021-07-04 2021-07-04 Telephone JOSE ARMANDO Mirza [id number] Univers 00:00:00 00:00:00 Cinda CAIN 350.1.13.10 it y of HOSPITAL 4.2.7.2.686 Mik as [id number] [address] 2021-07-03 2021-07-03 Laboratory Only, Ang Db Test [facility] 1.2.8 40.114 [id number] Univers 10:45:00 11:00:00 Only Green, Alexandra HEALTH 350.1.13.10 ity of [place] 4.2.7.2.686 Mik as JERRY?BLEA [id number] [address] MEDICAL OFFICE BUILDING 2021-06-25 2021-06-25 Letter Provider, [place] [id number] Univers 00:00:00 00:00:00 (Out) Ang Db HEALTH 350.1.13.10 it y of Urgent Care SURGICAL 4.2.7.2.686 [place] SPECIAL [id number] Me dical [address] 2021-06-23 2021-06-23 Letter Karol JOSE ARMANDO [id number] Univers 00:00:00 00:00:00 (Out) Kaley BARLOW 350.1.13.10 it y of HOSPITAL 4.2.7.2.686 Mik as [id number] [address] 2021-06-22 2021-06-22 Laboratory Only, Ang Db Test [facility] 1.2.8 40.114 [id number] Univers 13:15:00 13:30:00 Only Clinton Nilda HEALTH 350.1.13.10 ity of [place] 4.2.7.2.686 Mik as JERRY?BLEA [id number] Nm vanna [address] MEDICAL OFF[address] [facility] 2021-05-31 2021-05-31 Outpatient PENNIE, [facility] [id number] [place] 00:00:00 00:00:00 YADIEL [address] 2021-04-27 2021-04-27 Outpatient LESIA, [facility] [id number] [place] 00:00:00 00:00:00 RUDY 686 Method i 2021-04-27 2021-04-27 Outpatient KIRBY BERTO [facility] [id number] [place] 00:00:00 00:00:00 687 Method i 2021-04-19 2021-04-19 Outpatient GABRIELLE, [facility] [id number] [place] 00:00:00 00:00:00 TAISHA 952 Meth tamiko 2021-03-30 2021-03-30 Outpatient PENNIE, [facility] [id number] [place] 00:00:00 00:00:00 YADIEL 896 [address] 2021-02-15 2021-02-15 Outpatient GABRIELLE, [facility] [id number] [place] 00:00:00 00:00:00 TAISHA [address] 2021-01-18 2021-01-18 Outpatient GABRIELLE, [facility] [id number] [place] 00:00:00 00:00:00 TAISHA [address] 2020-10-12 2020-10-12 Outpatient GABRIELLE, [facility] [id number] [place] 00:00:00 00:00:00 TAISHA [address] 2020-09-29 2020-10-02 Outpatient BRAN, [facility] [id number] [place] 00:00:00 00:00:00 NANI [address] 2020-09-22 2020-09-22 Outpatient BRAN, [facility] [id number] [place] 00:00:00 00:00:00 NANI [address] 2020-09-22 2020-09-22 Outpatient BRAN, [facility] [id number] [place] 00:00:00 00:00:00 NANI [address] 2020-09-21 2020-09-21 Outpatient Halina, [facility] [id number] [facility] 12:00:00 12:00:00 Monica [id number] [facility] 2020-09-07 2020-09-07 Outpatient BRAN, [facility] [id number] 567 [place] 00:00:00 00:00:00 NANI [address] 2020-09-07 2020-09-07 Outpatient BRAN, [facility] [id number] 567 [place] 00:00:00 00:00:00 NANI [address] 2020-09-07 2020-09-07 Outpatient BRAN, [facility] [id number] [place] 00:00:00 00:00:00 NANI [address] 2020-09-01 2020-09-01 Outpatient [facility] [id number] [place] 00:00:00 00:00:[address] 2020-08-04 2020-08-04 Outpatient ROBBEN, [facility] [id number] [place] 00:00:00 00:00:00 ERNIE [address] 2020-07-14 2020-07-14 Outpatient [facility] [id number] [place] 00:00:00 00:00:[address] 2020-06-30 2020-06-30 Outpatient BRAN, [facility] [id number] [place] 00:00:00 00:00:00 NANI [address] 2020-06-22 2020-06-22 Outpatient RILEY, [facility] [id number] [place] 00:00:00 00:00:00 DONTAE [address] 2020-06-08 2020-06-08 Outpatient GABRIELLE, [facility] [id number] [place] 00:00:00 00:00:00 TAISHA [address] 2020-06-02 2020-06-02 Outpatient BRAN, [facility] [id number] [place] 00:00:00 00:00:00 NANI [address] 2020-05-17 2020-05-17 Outpatient RILEY, [facility] [id number] [place] 00:00:00 00:00:00 DONTAE [address] 2020-04-28 2020-04-28 Outpatient BRAN, [facility] [id number] [place] 00:00:00 00:00:00 NANI [address] 2020-04-28 2020-04-28 Outpatient BRAN, [facility] [id number] [place] 00:00:00 00:00:00 NANI [address] 2020-04-20 2020-04-20 Outpatient BRAN, [facility] [id number] [place] 00:00:00 00:00:00 NANI [address] 2020-03-10 2020-03-10 Outpatient BRAN, [facility] [id number] [place] 00:00:00 00:00:00 NANI [address] 2020-03-10 2020-03-10 Outpatient GABRIELLE, [facility] [id number] [place] 00:00:00 00:00:00 TAISHA [address] 2020-02-24 2020-02-24 Outpatient GABRIELLE, [facility] [id number] [place] 00:00:00 00:00:00 TAISHA [address] 2020-02-18 2020-02-18 Outpatient GABRIELLE, [facility] [id number] [place] 00:00:00 00:00:00 TAISHA [address] 2020-02-11 2020-02-11 Outpatient GABRIELLE, [facility] [id number] [place] 00:00:00 00:00:00 TAISHA [address] 2020-02-04 2020-02-04 Outpatient GABRIELLE, [facility] [id number] [place] 00:00:00 00:00:00 TAISHA [address] 2020-01-28 2020-01-28 Outpatient GABRIELLE, [facility] [id number] [place] 00:00:00 00:00:00 TAISHA [address] 2019-12-29 2019-12-29 Outpatient GABRIELLE, [facility] [id number] [place] 00:00:00 00:00:00 TAISHA [address] 2019-11-10 2019-11-10 Outpatient GABRIELLE, [facility] [id number] [place] 00:00:00 00:00:00 TAISHA [address] 2019-09-27 2019-09-28 Outpatient GABRIELLE, [facility] [id number] [place] 00:00:00 00:00:00 TAISHA [address] 2019-08-20 2019-08-20 Outpatient EL Halina, [facility] [id number] [facility] 12:00:00 12:00:00 Monica [id number] [facility] 2019-08-12 2019-08-12 Outpatient GABRIELLE, [facility] [id number] [place] 00:00:00 00:00:00 TAISHA [address] 2016-09-06 2016-09-07 Outpt Diag nullFlavo [facility] [id number] [place] 18:47:00 04:59:00 Services r Outpatient 08 l [facility] 2016-08-17 2016-08-18 Outpt Diag nullFlavo [facility] [id number] [place] 17:00:00 05:59:00 Services r Outpatient 07 l [facility] 2014-12-16 2014-12-17 Outpt Diag nullFlavo [facility] [id number] [place] 20:02:00 04:59:00 Services r Outpatient 06 l [facility] 2013-12-16 2013-12-17 Outpt Diag nullFlavo [facility] [id number] Mem[place] 19:36:00 04:59:00 Services r Outpatient 05 l Imaging [facility] [place] 2013-12-14 2013-12-15 Outpt Diag nullFlavo [facility] [id number] [place] 21:14:00 04:59:00 Services r Outpatient 04 l Imaging [facility] [place] 2011-05-28 2011-05-28 [facility] [id number] Memoria 14:13:00 14:13:00 00 l Fawad Results This patient has no known results.
[2021-07-10] MEDS ORDERED: ACETAMINOPHEN 500 MG TAB ONE (15:46)
--- NOTE | 2021-07-10 16:18 | RAD REPORT ---
EXAM DESCRIPTION: RAD - Chest Single View - 07/10/2021 4:12 pm CLINICAL HISTORY: COUGH Chest pain. COMPARISON: Chest Single View dated 07/09/2021 FINDINGS: Portable technique limits examination quality. Mild bilateral interstitial opacities are present most likely representing a viral infection. The hea rt is normal in size. No displaced fractures.
--- NOTE | 2021-07-10 16:43 | EDPHYS ---
Physician Documentation [facility] Name: Ana Grant Age: 71 yrs Sex: Female : 1950 Arrival Date: 07/10/2021 Time: 15:08 Bed 27 Private MD: ED Physician Sanya Clarke HPI: 07/10 16:31 This 71 yrs old Female presents to ER via EMS with complaints of fever, weakness. kb 16:31 The patient reports fever, not measured (subjective), with an emergency department kb temperature of 103.2 degrees Fahrenheit. The patient has been recently seen at the [facility] Emergency Department, yesterday, for similar complaints labs were performed, X-rays were performed, CT scan was performed. 16:36 Onset: The symptoms/episode began/occurred 2 week(s) ago. Modifying factors: there are kb no obvious modifying factors. Associated signs and symptoms: Pertinent positives: cough. Severity of symptoms: At their worst the symptoms were moderate in the emergency department the symptoms are unchanged. The patient has not experienced similar symptoms in the past. Pt presents for weakness and fever that started 2 weeks ago and has progressively gotten worse. Grandson states pt lives alone and cannot take care of herself in this state. States he fears for her safety. States he is unable to stay with her and there is no one else to help. States she was seen last night and was told to come back for worsening symptoms and they could help with placement. . Historical: - Allergies: 15:39 PENICILLINS; eo2 - PMHx: 15:39 diabetes mellitus; Leukemia; neuropathy; Suppressed Immune System; eo2 - Immunization history:: Adult Immunizations up to date, Client reports receiving the 2nd dose of the Covid vaccine. - Social history:: Smoking status: Patient denies any tobacco usage or history of. ROS: 16:31 Cardiovascular: Negative for chest pain, palpitations, and edema. kb 16:31 Constitutional: Positive for fever. 16:31 Respiratory: Positive for cough, Negative for dyspnea on exertion, hemoptysis, orthopnea, pleurisy, shortness of breath, sputum production, wheezing. 16:31 Neuro: Positive for weakness. 16:31 All other systems are negative. Exam: 16:31 Constitutional: This is a well developed, well nourished patient who is awake, alert, kb and in no acute distress. Head/Face: Normocephalic, atraumatic. ENT: Moist Mucous membranes Cardiovascular: Regular rate and rhythm with a normal S1 and S2. No gallops, murmurs, or rubs. No pulse deficits. Respiratory: Respirations even and unlabored. No increased work of breathing. Talking in full sentences Skin: Warm, dry with normal turgor. Normal color. MS/ Extremity: Pulses equal, no cyanosis. Neurovascular intact. Full, normal range of motion. Neuro: Awake and alert, GCS 15, oriented to person, place, time, and situation. Moves all extremities. Normal gait. Psych: Awake, alert, with orientation to person, place and time. Behavior, mood, and affect are within normal limits. Vital Signs: 15:10 BP 156 / 52; Pulse 87; Resp 17; Temp 103.2; Pulse Ox 94% on R/A; Weight 69.4 kg; Height eo2 5 ft. 2 in. (157.48 cm); Pain 0/10; 16:00 BP 156 / 54; Pulse 86; Resp 15; Pulse Ox 96% ; Pain 0/10; eo2 16:29 Pain 8/10; eo2 17:00 BP 152 / 52; Pulse 80; Resp 17; Temp 101.4; Pulse Ox 96% ; eo2 18:00 BP 137 / 40; Pulse 70; Resp 17; Pulse Ox 94% ; eo2 18:30 BP 121 / 48; Pulse 75; Resp 17; Temp 98.9(O); Pulse Ox 95% ; Pain 5/10; eo2 19:54 Temp 99.1(O); bb 15:10 Body Mass Index 27.98 (69.40 kg, 157.48 cm) eo2 MDM: 15:18 Patient medically screened. kb 16:32 Data reviewed: vital signs, nurses notes. Data interpreted: Pulse oximetry: on room air kb is 96 %. Interpretation: normal. 16:41 Counseling: I had a detailed discussion with the patient and/or guardian regarding: the kb historical points, exam findings, and any diagnostic results supporting the discharge/admit diagnosis, lab results, radiology results, the need for further work-up and treatment in the hospital. Physician consultation: Baljinder Molina was contacted at 16:41, regarding admission, to the medical/surgical unit. and will see patient in ED. 07/10 16:42 Order name: CBC with Diff; Complete Time: 19:04 kb 07/10 16:42 Order name: Basic Metabolic Panel; Complete Time: 17:47 kb 07/10 15:35 Order name: Chest Single View XRAY; Complete Time: 16:22 kb 07/10 17:18 Order name: Urine Dipstick-Ancillary; Complete Time: 17:18 EDMS 07/10 18:49 Order name: CBC Smear Scan; Complete Time: 19:04 EDMS 07/10 16:42 Order name: IV Start; Complete Time: 17:12 kb 07/10 16:42 Order name: Urine Dipstick-Ancillary (obtain specimen); Complete Time: 17:19 kb Administered Medications: 15:56 Drug: Tylenol 1000 mg Route: PO; eo2 17:12 Follow up: Response: No adverse reaction eo2 17:23 Drug: Ibuprofen 600 mg Route: PO; eo2 18:23 Follow up: Response: No adverse reaction; Temperature is decreased eo2 18:30 Drug: NS 0.9% 1000 ml Route: IV; Rate: 75 ml/hr; Site: right wrist; eo2 19:55 Follow up: IV Status: Infusion continued upon admission bb Disposition: 07/11 04:41 Co-signature as Attending Physician, Sanya Clarke MD I agree with the assessment and sp3 plan of care. Disposition Summary: 07/10/21 16:42 Hospitalization Ordered Hospitalization Status: Observation kb Provider: Baljinder Molina Location: Telemetry/MedSurg (observation) kb Condition: Stable kb Problem: new kb Symptoms: are unchanged kb Bed/Room Type: Standard Room Assignment: 405(07/10/21 18:39) bd Diagnosis - Coronavirus infection, unspecified kb - Weakness kb Forms: - Medication Reconciliation Form kb - SBAR form kb Signatures: Dispatcher [employer] EDIman Falcon FNP-C FNP-Nayeli Curry Setul, MD MD sp3 Lalitha Sanchez RN RN eo2 Mirian Flores RN bb Corrections: (The following items were deleted from the chart) 07/10 18:39 16:42 kb bd
--- NOTE | 2021-07-10 16:43 | ER ---
Nurse's Notes [facility] Name: Ana Grant Age: 71 yrs Sex: Female : 1950 Arrival Date: 07/10/2021 Time: 15:08 Bed 27 Private MD: Diagnosis: Coronavirus infection, unspecified;Weakness Presentation: 07/10 15:10 Chief complaint: EMS states: fever: pt covid+, d/c'ed from ER this morning around 2am, eo2 returned for worsening fever, already evaluated for fall yesterday, pt reported to have been in the bath tub for 12 hours before being found. Coronavirus screen: Vaccine status: Patient reports receiving the 2nd dose of the covid vaccine. Client denies travel out of the [place] in the last 14 days. Ebola Screen: Patient negative for fever greater than or equal to 101.5 degrees Fahrenheit, and additional compatible Ebola Virus Disease symptoms Patient denies exposure to infectious person. Patient denies travel to an Ebola-affected area in the 21 days before illness onset. Initial Sepsis Screen: Does the patient meet any 2 criteria? Temp <36.0*C (96.8*F)) or > 38.3*C (100.9*F). Does the patient have a suspected source of infection? Yes: Other: covid+. Risk Assessment: Do you want to hurt yourself or someone else? Patient reports no desire to harm self or others. Onset of symptoms is unknown. 15:10 Method Of Arrival: EMS: [facility] eo2 15:10 Acuity: TESSA 2 eo2 Triage Assessment: 15:39 General: Appears in no apparent distress. comfortable, Behavior is calm, cooperative. eo2 Pain: Denies pain. Historical: - Allergies: 15:39 PENICILLINS; eo2 - PMHx: 15:39 diabetes mellitus; Leukemia; neuropathy; Suppressed Immune System; eo2 - Immunization history:: Adult Immunizations up to date, Client reports receiving the 2nd dose of the Covid vaccine. - Social history:: Smoking status: Patient denies any tobacco usage or history of. Screenin:00 Abuse screen: Denies threats or abuse. Denies injuries from another. Nutritional eo2 screening: No deficits noted. Tuberculosis screening: No symptoms or risk factors identified. Fall Risk Fall in past 12 months (25 points). Assessment: 16:03 General: Appears in no apparent distress. distressed, Behavior is calm, cooperative. eo2 Pain: Denies pain. Neuro: Level of Consciousness is awake, alert, obeys commands, Oriented to person, place, situation, Pt is alert to self, , place and situation, stated year is "1921", pt reoriented to time. Pt speaking in full clear sentences, tongue midline. Moves all extremities. Weakness Reports weakness. Cardiovascular: Denies chest pain, Respiratory: Reports shortness of breath cough that is Airway is patent Breath sounds are diminished bilaterally. Derm: Bruising that is on left forehead. 16:03 Musculoskeletal: Reports generalized tremors worsened since being COVID+. eo2 16:17 GI: No deficits noted. No signs and/or symptoms were reported involving the eo2 gastrointestinal system. : No deficits noted. No signs and/or symptoms were reported regarding the genitourinary system. 16:26 Reassessment: pt reports being uncomfortable in stretcher, states "my body hurts all eo2 over" pt asked to lay on her side, then asked to sit on a chair by herself, pt made aware of fall risk. Pt requesting to go home, marina at bedside stated pt has fallen multiple times in the past two weeks due to frequently getting up and ambulating without her walker/cane. Pt rates generalized pain 8/10, Jovita BRISENO made aware. 18:41 Reassessment: 1st attempt to call report, shift change going on at this time, unable to eo2 give report. 19:53 Reassessment: Patient is alert, oriented x 3, equal unlabored respirations, skin bb warm/dry/pink. report called to Andrew ANTHONY for room 405. Vital Signs: 15:10 BP 156 / 52; Pulse 87; Resp 17; Temp 103.2; Pulse Ox 94% on R/A; Weight 69.4 kg; Height eo2 5 ft. 2 in. (157.48 cm); Pain 0/10; 16:00 BP 156 / 54; Pulse 86; Resp 15; Pulse Ox 96% ; Pain 0/10; eo2 16:29 Pain 8/10; eo2 17:00 BP 152 / 52; Pulse 80; Resp 17; Temp 101.4; Pulse Ox 96% ; eo2 18:00 BP 137 / 40; Pulse 70; Resp 17; Pulse Ox 94% ; eo2 18:30 BP 121 / 48; Pulse 75; Resp 17; Temp 98.9(O); Pulse Ox 95% ; Pain 5/10; eo2 19:54 Temp 99.1(O); bb 15:10 Body Mass Index 27.98 (69.40 kg, 157.48 cm) eo2 ED Course: 15:08 Patient arrived in ED. bd 15:18 Iman Last FNP-C is PHCP. kb 15:18 Sanya Clarke MD is Attending Physician. kb 15:35 Lalitha Sanchez, GABRIELLE is Primary Nurse. eo2 15:39 Triage completed. eo2 16:00 Patient has correct armband on for positive identification. eo2 16:00 No provider procedures requiring assistance completed. eo2 16:12 Chest Single View XRAY In Process Unspecified. EDMS 16:19 Arm band placed on. eo2 16:42 Baljinder Molina is Hospitalizing Provider. kb 17:13 CBC with Diff Sent. eo2 17:13 Basic Metabolic Panel Sent. eo2 17:18 Initial lab(s) drawn, by id, sent to lab. Urine collected: clean catch specimen, mh5 cloudy. Inserted saline lock: 20 gauge in right wrist, using aseptic technique. Blood collected. 17:19 Pulse ox on. NIBP on. mh5 17:19 CBC with Diff Sent. mh5 17:19 Basic Metabolic Panel Sent. 5 19:08 Report given to Mirian ANTHONY. eo2 19:54 Patient admitted, IV remains in place. bb Administered Medications: 15:56 Drug: Tylenol 1000 mg Route: PO; eo2 17:12 Follow up: Response: No adverse reaction eo2 17:23 Drug: Ibuprofen 600 mg Route: PO; eo2 18:23 Follow up: Response: No adverse reaction; Temperature is decreased eo2 18:30 Drug: NS 0.9% 1000 ml Route: IV; Rate: 75 ml/hr; Site: right wrist; eo2 19:55 Follow up: IV Status: Infusion continued upon admission bb Outcome: 16:42 Decision to Hospitalize by Provider. kb 19:54 Admitted to Tele accompanied by tech, via stretcher, room 405, with chart, Report bb called to Andrew ANTHONY 19:54 Condition: stable 19:54 Instructed on the need for admit. 20:12 Patient left the ED. bb Signatures: Dispatcher [employer] EDIman Falcon, RIKA-C PHOTOGRAPHIC PROCESS ATTENDANT-Nayeli Curry Brenda, RN RN Jaqui Matthews 5 Lalitha Sanchez RN RN eo2
[2021-07-10 17:18] LABS: Urine Blood Trace-lysed (Negative); Urine Glucose Negative (Negative); Urine Protein 3+ (Negative); Urine Specific Gravity >=1.030 (1.005-1.030); Urine pH 5.5 (5.0-7.0)
[2021-07-10 17:21] LABS: Absolute Lymphocytes (CBC) 0.3 K/uL (0.7-4.9); Hematocrit 30.4 % (36.0-45.0); Lymphocytes % 11.6 % (15.3-44.8); MPV 9.6 fL (7.6-11.3)
[2021-07-10] MEDS ORDERED: IBUPROFEN 200 MG TAB PO ONE (17:21)
--- NOTE | 2021-07-10 18:10 | P.HP ---
Certification for Inpatient Patient admitted to: Observation With expected LOS: <2 Midnights Practitioner: I am a practitioner with admitting privileges, knowledge of patient current condition, hospital course, and medical plan of care. Services: Services provided to patient in accordance with Admission requirements found in Title 42 Section 412.3 of the Code of Federal Regulations Patient History Date of Service: 07/10/21 Reason for admission: Generalized weakness History of Present Illness: 72-year-old man with a history of leukemia, on surveillance for the past 2 months, last chemo 2 months ago presented to the emergency department yesterday with a complaint of generalized weakness. Patient tested positive for COVID-19. Chest x-ray showed no infiltrate, patient was not hypoxic and was subsequently discharged to home. Son brought patient back to the emergency department today stating patient fell in her bathtub and could not get up due to weakness. She was in the bathtub for for several hours so she brought her back to the emergency department. Blood work shows mild hyponatremia, she has anemia with hemoglobin of 10. Patient generally weak and unable to ambulate. She is hospitalized for supportive measures and further evaluation. - Past Medical/Surgical History -: Leukemia -: Hypertension -: Hyperlipidemia - Family History Mother -: Cancer Sister -: Cancer (Leukemia) - Social History Smoking Status: Never smoker Alcohol use: No CD- Drugs: No Place of Residence: Home Review of Systems Other: Patient reports nonproductive cough, she denies any chest pain or shortness of breath. She has fever, she denies abdominal pain. Except as documented all other systems reviewed and negative. Physical Examination - Physical Exam General: Alert, In no apparent distress, Oriented x3 HEENT: Mucous membr. moist/pink Neck: JVD not distended Respiratory: Clear to auscultation bilaterally, Normal air movement Cardiovascular: No edema, Regular rate/rhythm, Normal S1 S2 Gastrointestinal: Normal bowel sounds, Soft and benign, Non-distended, No tenderness Musculoskeletal: No swelling, No tenderness Integumentary: No rashes, No erythema, No cyanosis Neurological: Normal speech, Normal strength at 5/5 x4 extr Lymphatics: No axilla or inguinal lymphadenopathy - Studies Laboratory Data (last 24 hrs) 07/10/21 17:10: Sodium 132 L, Potassium 4.0, BUN 15, Creatinine 0.79, Glucose 239 H 07/10/21 17:10: WBC 2.60 L D, Hgb 10.2 L, Hct 30.4 L, Plt Count 110 L Assessment and Plan - Problems (Diagnosis) (1) Decreased mobility Current Visit: Yes Status: Acute (2) COVID-19 virus infection Current Visit: Yes Status: Acute (3) Leukemia in remission Current Visit: Yes Status: Acute (4) Anemia Current Visit: Yes Status: Acute - Plan Place patient under observation. Patient with generalized weakness from febrile illness secondary to COVID-19. Hydrate with IV normal saline Diet as tolerated PT consult. Collect, validate and reconcile home medications. Monitor CBC and blood chemistry. - Advance Directives Does patient have a Living Will: No Does patient have a Durable POA for Healthcare: No
[2021-07-10] MEDS ORDERED: NA CHLORIDE 0.9% 1,000 ML ONE (18:17)
[2021-07-10 18:48] LABS: Blood Morphology Comment NOT SEEN (NOT SEEN); Platelet Estimate DECR; White Blood Cell Scan OK (OK)
[2021-07-10] MEDS: NA CHLORIDE 0.9% 1,000 ML IV SCH (20:20)
[2021-07-10 22:26] VITALS: BMI 27.1
[2021-07-10] MEDS: ACETAMINOPHEN 500 MG TAB PO PRN (23:43)
[2021-07-11 00:13] LABS: Urine Appearance CLEAR (Clear); Urine Bilirubin NEGATIVE (Negative); Urine Blood NEGATIVE (Negative); Urine Color YELLOW (Yellow); Urine Glucose NEGATIVE (Negative); Urine Microscopic Reflex ORDER UMIC; Urine Protein 2+ (Negative); Urine Urobilinogen 0.2 mg/dL (0.2-1.0); Urine pH 5.5 (5.0-7.0)
[2021-07-11 00:32] LABS: Urine Bacteria <20 /HPF (<20); Urine RBC NONE SEEN /HPF (NONE SEEN); Urine Urothelial Cells <5 /HPF (NONE SEEN)
[2021-07-11] MEDS: NA CHLORIDE 0.9% 1,000 ML IV SCH ×5 (02:38→23:31)
[2021-07-11 03:58] LABS: Absolute Lymphocytes (CBC) 0.4 K/uL (0.7-4.9); Hematocrit 29.3 % (36.0-45.0); Lymphocytes % 21.8 % (15.3-44.8); MPV 9.7 fL (7.6-11.3); RBC Red Blood Cell Count 3.52 M/uL (3.86-4.86)
[2021-07-11] MEDS: ACETAMINOPHEN 500 MG TAB PO PRN ×4 (04:55→20:52)
[2021-07-11] MEDS: ONDANSETRON 4 MG/2 ML VIAL IV PRN ×2 (04:56→23:30)
[2021-07-11 05:34] LABS: Potassium 3.4 mmol/L (3.5-5.1); Thyroid Stimulating Hormone 2.51 uIU/mL (0.360-3.740)
[2021-07-11 05:35] LABS: Magnesium 1.4 mg/dL (1.8-2.4)
[2021-07-11] MEDS ORDERED: Magnesium Sulfate 2gm IVPB 2 G/50 ML BAG IV ONE (07:00)
[2021-07-11] MEDS ORDERED: PNEUMOCOCCAL VACCINE 0.5 ML IMVAC ONE (08:00)
[2021-07-11] MEDS: ENOXAPARIN 40 MG/0.4 ML SQ SCH (09:00)
[2021-07-11] MEDS ORDERED: POTASSIUM CL SA 10 MEQ TAB PO ONE (09:00)
[2021-07-11] MEDS ORDERED: D50W 25 GM/50 ML SYRINGE IV PRN (12:25)
[2021-07-11] MEDS ORDERED: GLUCAGON 1 MG/VIAL IM PRN (12:25)
--- NOTE | 2021-07-11 14:18 | P.PN ---
Subjective Date of Service: 07/11/21 Chief Complaint: Generalized weakness Patient also complains being uncomfortable on the bed. Nursing staff report she has unsteady gait. She is even unsteady with transfers. No fever recorded today. Physical Examination - Vital Signs Temperature: 98.7 F Blood Pressure: 159/71 Pulse: 95 Respirations: 16 Pulse Ox (%): 96 - Physical Exam General: Alert, In no apparent distress, Oriented x3 HEENT: Mucous membr. moist/pink Neck: JVD not distended Respiratory: Clear to auscultation bilaterally, Normal air movement Cardiovascular: No edema, Regular rate/rhythm, Normal S1 S2, No murmurs Capillary refill: <2 Seconds Gastrointestinal: Normal bowel sounds, Soft and benign, Non-distended, No tenderness Musculoskeletal: No swelling Integumentary: No rashes Neurological: Normal speech, Normal strength at 5/5 x4 extr, Cranial nerves 3-12 intact - Studies Laboratory Data (last 24 hrs) 07/11/21 12:20: Potassium 4.2 07/11/21 03:27: Sodium 137, Potassium 3.4 L, BUN 18, Creatinine 0.89, Glucose 262 H, Magnesium 1.4 L* 07/11/21 03:27: APTT 28.3 07/11/21 03:27: WBC 2.00 L D, Hgb 9.5 L, Hct 29.3 L, Plt Count 99 L 07/10/21 17:10: Sodium 132 L, Potassium 4.0, BUN 15, Creatinine 0.79, Glucose 239 H 07/10/21 17:10: WBC 2.60 L D, Hgb 10.2 L, Hct 30.4 L, Plt Count 110 L Assessment And Plan - Current Problems (Diagnosis) (1) Decreased mobility Current Visit: Yes Status: Acute (2) COVID-19 virus infection Current Visit: Yes Status: Acute (3) Leukemia in remission Current Visit: Yes Status: Acute (4) Anemia Current Visit: Yes Status: Acute - Plan Patient with generalized weakness from febrile illness secondary to COVID-19. She also has unsteady gait. Reports of multiple falls at home. Continue IV fluid Diet as tolerated PT to evaluate. Patient may need SNF placement for rehab. Monitor CBC and blood chemistry.
[2021-07-11 16:11] LABS: Magnesium 1.6 mg/dL (1.8-2.4); Phosphorus 2.2 mg/dL (2.5-4.9)
[2021-07-11] MEDS: INSULIN -REGULAR HUMAN 50 UNIT/0.5 ML ML SQ SCH ×2 (16:38→20:52)
[2021-07-11] MEDS ORDERED: MAGNESIUM SULFATE 1 gm IVPB 1 GM/100 ML BAG IV ONE (17:00)
[2021-07-12] MEDS: ACETAMINOPHEN 500 MG TAB PO PRN ×4 (03:21→20:29)
[2021-07-12] MEDS ORDERED: ACETAMINOPHEN 500 MG TAB PO ONE (03:53)
[2021-07-12 04:04] LABS: Magnesium 1.7 mg/dL (1.8-2.4); Potassium 3.8 mmol/L (3.5-5.1)
[2021-07-12 04:17] LABS: Hematocrit 28.6 % (36.0-45.0); RBC Red Blood Cell Count 3.44 M/uL (3.86-4.86)
[2021-07-12 04:18] LABS: Absolute Lymphocytes (CBC) 0.4 K/uL (0.7-4.9); Lymphocytes % 20.1 % (15.3-44.8); MPV 9.9 fL (7.6-11.3)
[2021-07-12] MEDS ORDERED: POTASSIUM CL SA 10 MEQ TAB PO ONE (09:00)
[2021-07-12] MEDS ORDERED: MAGNESIUM SULFATE 1 gm IVPB 1 GM/100 ML BAG IV ONE (09:00)
[2021-07-12] MEDS: INSULIN -REGULAR HUMAN 50 UNIT/0.5 ML ML SQ SCH ×4 (09:26→20:29)
[2021-07-12] MEDS: NA CHLORIDE 0.9% 1,000 ML IV SCH ×2 (09:26→20:30)
[2021-07-12] MEDS: ENOXAPARIN 40 MG/0.4 ML SQ SCH (10:07)
--- NOTE | 2021-07-12 12:55 | P.PN ---
Subjective Date of Service: 07/12/21 Chief Complaint: Generalized weakness Patient noted to be quite weak. She needs assistance with intermittent transfers. Physical Examination - Vital Signs Temperature: 97.7 F Blood Pressure: 146/67 Pulse: 75 Respirations: 74 Pulse Ox (%): 95 - Physical Exam General: Alert, In no apparent distress HEENT: Mucous membr. moist/pink Neck: JVD not distended Respiratory: Clear to auscultation bilaterally, Normal air movement Cardiovascular: No edema, Regular rate/rhythm, Normal S1 S2 Gastrointestinal: Soft and benign, Non-distended, No tenderness Musculoskeletal: No swelling Integumentary: No rashes Neurological: Normal speech, Normal strength at 5/5 x4 extr Assessment And Plan - Current Problems (Diagnosis) (1) Decreased mobility Current Visit: Yes Status: Acute (2) COVID-19 virus infection Current Visit: Yes Status: Acute (3) Leukemia in remission Current Visit: Yes Status: Acute (4) Anemia Current Visit: Yes Status: Acute - Plan Patient with generalized weakness from febrile illness secondary to COVID-19. She also has unsteady gait. Reports of multiple falls at home. Continue IV fluid Diet as tolerated Continue PT. Anticipating SNF placement for rehab. Insulin sliding scale for hyperglycemia. Pancytopenia with significant leukopenia noted. Continue to monitor CBC.
[2021-07-12] MEDS ORDERED: BENZONATATE 100 MG CAP PO PRN (19:31)
[2021-07-13] MEDS: ACETAMINOPHEN 500 MG TAB PO PRN ×3 (00:44→08:42)
[2021-07-13 03:55] LABS: Absolute Lymphocytes (CBC) 0.4 K/uL (0.7-4.9); Hematocrit 26.6 % (36.0-45.0); Lymphocytes % 21.4 % (15.3-44.8); MPV 9.7 fL (7.6-11.3)
[2021-07-13] MEDS: ONDANSETRON 4 MG/2 ML VIAL IV PRN (04:16)
[2021-07-13 04:20] LABS: BUN Blood Urea Nitrogen 6 mg/dL (7-18); Bicarbonate 22 mmol/L (21-32); Glucose Level 136 mg/dL (74-106); Magnesium 1.6 mg/dL (1.8-2.4); Potassium 3.5 mmol/L (3.5-5.1); Sodium Level 139 mmol/L (136-145)
[2021-07-13] MEDS: NA CHLORIDE 0.9% 1,000 ML IV SCH (06:05)
[2021-07-13] MEDS: INSULIN -REGULAR HUMAN 50 UNIT/0.5 ML ML SQ SCH ×2 (07:30→13:17)
[2021-07-13] MEDS: ENOXAPARIN 40 MG/0.4 ML SQ SCH (08:43)
[2021-07-13] MEDS ORDERED: MAGNESIUM SULFATE 1 gm IVPB 1 GM/100 ML BAG IV ONE (09:00)
[2021-07-13] MEDS ORDERED: POTASSIUM CL SA 10 MEQ TAB PO ONE (09:00)
[2021-07-13] MEDS ORDERED: GABAPENTIN 300 MG CAP PO SCH (09:09)
[2021-07-13] MEDS ORDERED: TRAMADOL HCL 50 MG TAB PO SCH (09:10)
[2021-07-13] MEDS ORDERED: LOSARTAN POTASSIUM 50 MG TABLET PO SCH (09:11)
--- NOTE | 2021-07-13 12:42 | P.DS ---
Admission Date: 07/11/21 Discharge Date: 07/13/21 Disposition: DC HOME/HOME HEALTH CARE Discharge Condition: FAIR Reason for Admission: Generalized weakness - Problems (1) Decreased mobility Current Visit: Yes Status: Acute (2) COVID-19 virus infection Current Visit: Yes Status: Acute (3) Leukemia in remission Current Visit: Yes Status: Acute (4) Anemia Current Visit: Yes Status: Acute Brief History of Present Illness: 72-year-old man with a history of leukemia, on surveillance for the past 2 months, last chemo 2 months ago presented to the emergency department yesterday with a complaint of generalized weakness. Patient tested positive for COVID-19. Chest x-ray showed no infiltrate, patient was not hypoxic and was subsequently discharged to home. Son brought patient back to the emergency department today stating patient fell in her bathtub and could not get up due to weakness. She was in the bathtub for for several hours so she brought her back to the emergency department. Blood work shows mild hyponatremia, she has anemia with hemoglobin of 10. Patient generally weak and unable to ambulate. She was hospitalized for supportive measures and further evaluation. Hospital Course: Patient with generalized weakness from febrile illness secondary to COVID-19. She was hospitalized for supportive measures. Noted to have unsteady gait. Patient hydrated with IV fluid. She did not require oxygen, no hypoxia. Had PT sessions and she was able to ambulate 100 feet without assistance today. Her performance status has improved. Patient request to go home rather than skilled rehab. Her oral intake was good. Patient is clinically stable for discharge. She is discharged with home health for nursing and PT. Vital Signs/Physical Exam: Temp Pulse Resp BP Pulse Ox 97.9 F 79 20 180/75 H 94 07/13/21 08:00 07/13/21 08:00 07/13/21 11:14 07/13/21 08:00 07/13/21 11:14 General: Alert, In no apparent distress, Oriented x3 HEENT: Mucous membr. moist/pink, Sclerae nonicteric Neck: JVD not distended Respiratory: Clear to auscultation bilaterally, Normal air movement Cardiovascular: No edema, Regular rate/rhythm, Normal S1 S2 Gastrointestinal: Soft and benign, Non-distended, Hyperactive Musculoskeletal: No swelling, No tenderness Integumentary: No rashes, No erythema, No cyanosis Neurological: Normal strength at 5/5 x4 extr, Cranial nerves 3-12 intact Laboratory Data at Discharge: WBC 1.70 K/uL (4.3-10.9) L* 07/13/21 03:24 Hgb 8.7 g/dL (12.0-15.0) L 07/13/21 03:24 Hct 26.6 % (36.0-45.0) L 07/13/21 03:24 Plt Count 100 K/uL (152-406) L 07/13/21 03:24 APTT 28.3 SECONDS (24.3-36.9) 07/11/21 03:27 Sodium 139 mmol/L (136-145) 07/13/21 03:24 Potassium 3.5 mmol/L (3.5-5.1) 07/13/21 03:24 BUN 6 mg/dL (7-18) L 07/13/21 03:24 Creatinine 0.53 mg/dL (0.55-1.3) L 07/13/21 03:24 Glucose 136 mg/dL (74-106) H 07/13/21 03:24 Phosphorus 2.2 mg/dL (2.5-4.9) L 07/11/21 15:36 Magnesium 1.6 mg/dL (1.8-2.4) L 07/13/21 03:24 Home Medications: Atorvastatin Calcium 1 tab PO DAILY 07/11/21 Cetirizine HCl 1 tab PO DAILY 07/11/21 Dulaglutide [Trulicity] 1 syr SQ SEECOM 07/11/21 Furosemide 1 tab PO DAILY 07/11/21 Gabapentin 1 cap PO BID 07/11/21 Insulin Degludec [Tresiba Flextouch U-100] 60 units SQ BEDTIME 07/11/21 Insulin Lispro [Humalog] 0 - 15 unit SQ TID 07/11/21 Losartan Potassium 1 tab PO DAILY 07/11/21 Metformin ER [Glucophage ER*] 2 tab PO DAILY 07/11/21 Sertraline [Zoloft*] 25 mg PO DAILY 07/11/21 Tramadol HCl [Ultram] 1 tab PO TID 07/11/21 Benzonatate [Tessalon Perle*] 100 mg PO TID PRN #30 cap 01/28/22 New Medications: Benzonatate [Tessalon Perle*] 100 mg PO TID PRN #30 cap PRN Reason: Cough Diet: ADA Activity: Fall precautions Followup: NONE,NONE [Primary Care Provider] - 1-2 Weeks Time spent managing pt's care (in minutes): 36
[2021-07-13 14:09] VITALS: O2SAT 96
[2021-07-13 14:21] VITALS: BP 140/95; TEMP 98.6
[2021-07-13] MEDS ORDERED: ATORVASTATIN 40 MG TAB PO SCH (21:00)
[2021-07-14] MEDS ORDERED: SERTRALINE HCL 50 MG TAB PO SCH (09:00)
[2021-07-14] MEDS ORDERED: FUROSEMIDE 20 MG TABLET PO SCH (09:09)
== END 2021-07-13 14:14 | disposition home health service (06) | DRG 178 ==
LOC: ER 15:03 → ERHOLD 17:50 → 4TH 19:27 → OBSVTOIN 07-11 12:27
PROVIDERS: ADMIT Internal Medicine; ATTEND Internal Medicine
DX: U07.1 COVID-19 (principal); E87.1 Hypo-osmolality and hyponatremia; C95.91 Leukemia, unspecified, in remission; D61.818 Other pancytopenia; E78.5 Hyperlipidemia, unspecified; I10 Essential (primary) hypertension; E11.65 Type 2 diabetes mellitus with hyperglycemia; Z88.0 Allergy status to penicillin; Z60.2 Problems related to living alone; Z79.4 Long term (current) use of insulin; Z79.84 Long term (current) use of oral hypoglycemic drugs; Z79.899 Other long term (current) drug therapy
CPT/HCPCS: 0240U; 36415; 70450; 71045; 71275; 72125; 80048; 80076; 81003; 81015; 82550; 82947; 83605; 83735; 83880; 84100; 84132; 84145; 84443; 84484; 85025; 85610; 85730; 87086; 87088; 93005; 96360; 96361; 97116; 97161; 97530; 99285; G0378; J1650; J2405; J3475; J7030; J7040; Q9967

== ENCOUNTER 2022-06-24 05:32 | Day surgery (SDC) | payer OTHER ==
[2022-06-20 14:20] LABS: Absolute Lymphocytes (CBC) 1.8 K/uL (0.7-4.9); Hematocrit 41.4 % (36.0-45.0); Lymphocytes % 20.6 % (15.3-44.8); MCV 92.2 fL (80-100); RBC Red Blood Cell Count 4.49 M/uL (3.86-4.86)
[2022-06-20 15:06] LABS: Blood Morphology Comment NOT SEEN (NOT SEEN); Platelet Estimate ADEQ
[2022-06-24] MEDS ORDERED: NA CHLORIDE 0.9% 1,000 ML ONE (05:48)
[2022-06-24] MEDS ORDERED: CLINDAMYCIN 900MG/D5W 900 MG/50 ML IVPB IV ONE (05:48)
[2022-06-24] MEDS ORDERED: THROMBIN 5000 UNITS/VIAL TOP ONE (06:03)
[2022-06-24] MEDS ORDERED: DEPO-MEDROL 40 MG/ML IM ONE ×2 (06:03→06:05)
[2022-06-24] MEDS ORDERED: propofoL 200 MG/20 ML VIAL IV ONE ×3 (06:31→06:41)
[2022-06-24] MEDS ORDERED: FENTANYL CITR 100 MCG/2 ML ONE (06:32)
[2022-06-24] MEDS ORDERED: MIDAZOLAM HCL 2 MG/2 ML INJ ONE (06:33)
[2022-06-24] MEDS ORDERED: ROCURONIUM 50 MG/5 ML VIAL IV ONE (06:33)
[2022-06-24] MEDS ORDERED: LIDOCAINE 2% MPF 5 ML VIAL ONE (06:33)
[2022-06-24] MEDS ORDERED: ONDANSETRON 4 MG/2 ML VIAL ONE (06:34)
[2022-06-24] MEDS ORDERED: KETOROLAC 30 MG/ML INJ ONE (07:44)
[2022-06-24] MEDS ORDERED: dexAMETHasone 10 MG/ML VIAL ONE (07:44)
--- NOTE | 2022-06-24 08:44 | RAD REPORT ---
EXAM DESCRIPTION: RAD - Fluoroscopy <1 Hour - 06/24/2022 8:37 am FINDINGS: There were 3 portable C-arm views submitted during fluoroscopic assisted L5-S1 foraminotom y. Fluoro time was less than 0.1 minutes. Cumulative dose was 1.73 mGy.
[2022-06-24] MEDS: HYDROMORPHONE HCL 1 MG/ML INJ ONE ×2 (09:06→09:13)
[2022-06-24 10:47] VITALS: BP 159/60; TEMP 97.4; O2SAT 95
== END 2022-06-24 10:40 | disposition home or self-care (01) ==
LOC: OR 05:32
PROVIDERS: ATTEND Orthopaedic Surgery
PROC: 01NB0ZZ Release Lumbar Nerve, Open Approach (ICD-10-PCS; 2022-06-24)
PROC: 01NB0ZZ Release Lumbar Nerve, Open Approach (ICD-10-PCS; principal; 2022-06-24 06:30)
DX: M54.16 Radiculopathy, lumbar region (principal)
CPT/HCPCS: 63047 ×2; 85025; 80048; 36415; 82947 ×2; J2704 ×3; J2001; J2250; J3010; J1100; J1170; J7030; J2405; 76000; J1030

== ENCOUNTER 2023-04-26 19:01 | Emergency (ER) | payer OTHER ==
--- OUTSIDE RECORDS SUMMARY | 2023-04-26 19:06 | XMS REPORT | Continuity of Care Document ---
:1950 Author Organization [facility] t Address [address] [facility] [place] [address] Care Team Providers Name Role Phone SHE ANTHONY Primary Care Physician Unavailable Aleta Dior MD Attending Clinician SHE ANTHONY Attending Clinician Unavailable Talya Johnson MA Attending Clinician Unavailable Monica Meade Attending Clinician Unavailable Muna Rader MD Attending Clinician RENNY AGUILERA Attending Clinician Unavailable Renny Aguilera MD Attending Clinician Doctor Unassigned, [place] Attending Clinician Unavailable Apolonia Saunders MD Attending Clinician She Anthony Attending Clinician Unavailable Jerrell Clarke MD Attending Clinician Naya Carter MA Attending Clinician Unavailable Sumaya Scales Attending Clinician Unavailable Nelida Patel MA Attending Clinician Unavailable Sienna Medina Attending Clinician Unavailable Dimitris Espinosa MD Attending Clinician Estela Loya Attending Clinician Haile OLIVA, Jaret Watts Attending Clinician Tg OLIVA, Ewdin Gutierrez Attending Clinician [phone] DONTAE LIN Attending Clinician Unavailable Monica Meade Admitting Clinician Unavailable RENNY AGUILERA Carmelo Admitting Clinician Unavailable She Anthony Admitting Clinician Unavailable Physician, No Primary or Family Admitting Clinician Unavaila ble Payers Payer Name Policy Type Policy Number Effective Date Expiration Date Carmelo marie MEDICARE PART A [id number] 2014 \\T\\ B 00:00:00 Problems Condition Condition Condition Status Onset Resolution Last Treating Co mments Source Name Details Category Date Date Treatment Clinician Date Hx of bone Hx of bone Disease Active Overview : Methodi density density 11-[address] study study 00:00: g of this Hospita 00 note l might be different from the original. 10/2021 spine -0.8 R-2.1 L-1.7 frax 13, 3% 11/2021 starting on fosamax PAD PAD Disease Active Overview: Method i (periphera (periphera 09-[address] l artery l artery 00:00: g of this [facility] disease) disease) 00 note l might be different from the original. 09/2021 mild PAD right foot only be insurance scan and left is wnl Stenosis Stenosis Disease Active 2020-06 Overview: Me thodi of left of left 06-[address] carotid carotid 00:00: g of this Hospi ta artery artery 00 note l might be different from the original. See scanned document 02/2021 >50% blockage bilateral carotid[address] Clarke, placed on vascepa and he is referring her to Neuro Screening Screening Disease Active Overview: Methodi for colon for colon 01-15 Formattin s t cancer cancer 00:00: g of this Hospita 00 note l might be different from the original. 12/2019 cologuard negative Z12.31 - Z12.31 - Diagnosis Active 2016-08-17 Memoria ENCNTR ENCNTR 07-15 11:09:00 l SCREEN SCREEN 00:01: Fawad MAMMOGRAM MAMMOGRAM 00 FOR MA FOR MA Active 07/15/2016 OPIJuve [place] Renal Renal Disease Active Overview: Method i insufficie insufficie 09-[address] ncy ncy 00:00: g of this Hospita 00 note l might be different from the original. 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 Overview: [address] Monica Meade03/17 015 WBC are high but may have to have chemo againDr Halina is [facility] Oncology V76.12 - V76.12 - Diagnosis Active 2013-12-21 Memoria SCREEN SCREEN 12-09 12:57:00 l MAMMOGRA MAMMOGRA 00:01: [place] n Active 00 12/09/2013 OPID [place] Allergies, Adverse Reactions, Alerts Allergy Allergy Status Severity Reaction(s) Onset Inactive Treating Comm ents Source Name Type Date Date Clinician Penicill Propensi Active Method i ins ty to 09-20 st adverse 00:00: Hospita reaction 00 l s to drug Liraglut Propensi Active [place] Method i selwyn ty to 09-[address] adverse 00:00: Hospita reaction 00 l s to drug Penicill Propensi Active Method i ins ty to 09-20 st adverse 00:00: Hospita reaction 00 l s to drug Penicill DA [facility] [place] [facility] [place] [facility] Penicill DA Active [place] [facility]BDOM[facility]AL [facility]- [facility] 1-[facility] [place] [facility] PENICILL DA Active U ABDOMINAL 2008- [facility] [place] 4-21 [place] [facility] NO KNOWN Drug Active [facility]ERG[facility] Class ity of [facility] Family History Family Member Diagnosis Comments Start Date Stop Date Source Family member [facility] Natural son Diabetes [facility] Natural son Hypertension [facility] Natural son Stroke [facility] Social History Social Habit Start Date Stop Date Quantity Comments Source Gender identity 2021-02-13 Identifies as Method ist 16:12:54 female gender Hospital (finding) Sexual orientation 2021-02-13 Heterosexual Meth odist 16:12:54 (finding) Hospital History of tobacco Cigarette Smoker [facility] use Hospital Alcohol intake 2023-04-03 2023-04-03 Current non-drinker M ethodist 00:00:00 00:00:00 of alcohol Hospital (finding) History of Social 2023-04-03 2023-04-[address] function 00:00:00 00:00:00 Hospital Tobacco use and 2022-02-07 2022-02-07 Smokeless tobacco Me thodist exposure 00:00:00 00:00:00 non-user Hospital Social History 2016-09-07 2016-09-07 [facility] 04:59:00 04:59:00 Sex Ass[birth year] [facility] y of 00:00:00 00:00:00 [facility] Smoking Status Start Date Stop Date Source Unknown if ever smoked [facility] Ex-smoker 2022-02-07 00:00:00 2022-02-07 [facility]:00:[facility] Never smoked tobacco [facility] Medications Ordered Filled Start Stop Current Ordering Indication Dosage Frequency Signature Comments Components Source Medication Medication Date Date Medication? Clinician (SIG) Name Name gabapentin 2022-06 Yes 300mg Q.5D Take 1 Meth tamiko (NEURONTIN) 0-[address] 300 mg 08:35: (300 mg Hospita capsule 47 total) by l mouth 2 (two) times a day. HYDROcodone 2022-06 Yes 1{tbl} QD Take 1 Me thodi -acetaminop 0-[address] hen (XODOL) 08:35: mouth Hospi ta 5-300 mg 47 daily. l per tablet insulin 2022-06 Yes [id number] 35U Q.5D Inject 35 Methodi GLARGINE 0-[address] (Toujeo Max 00:00: under the H ospita U-300 00 skin 2 l SoloStar) (two) 300 unit/mL times a (3 mL) day. insulin pen subcutaneou s pen furosemide Yes 20mg QD Take 1 Metho di (LASIX) 20 9-22 tablet (20 st mg tablet 00:00: mg total) Hos d[facility]cas 00 by mouth l daily. furosemide Yes Take 1 Metho di (LASIX) 20 9-[address] mg tablet 00:00: mouth once Ho spita 00 daily l atorvastati Yes [id number] 40mg QD Take 1 Methodi n (LIPITOR) 9-[address] 40 mg 00:00: mouth once Hospit a tablet 00 daily l insulin 2022- No 60U QD INJECT 60 Meth tamiko degludec 03-07 10-[address] (TRESIBA) 00:00: 00:00 SUBCUTANEO H ospita 100 unit/mL 00 :00 USLY l (3 mL) NIGHTLY subcutaneou s pen insulin 2022- No 60U QD Inject 60 Meth tamiko GLARGINE 15 10-[address] (Toujeo 00:00: 00:00 under the [facility] SoloStar 00 :00 skin l U-300 daily. Insulin) 300 unit/mL (1.5 mL) insulin pen subcutaneou s pen Tresiba 2022- No INJECT 60 Meth tamiko FlexTouch 02-21 09-[address] U-100 100 00:00: 00:00 SUBCUTANEO H ospita unit/mL (3 00 :00 USLY l mL) NIGHTLY subcutaneou s pen Tresiba 2022- No INJECT 60 Meth tamiko FlexTouch 8-21 09-[address] U-100 100 00:00: 00:00 SUBCUTANEO H ospita unit/mL (3 00 :00 USLY l mL) NIGHTLY subcutaneou s pen furosemide 2022-0 2022- No Take 1 Meth tamiko (LASIX) 20 8-08 09-[address] mg tablet 00:00: 00:00 mouth once H ospita 00 :00 daily l Tresiba 0 2022- No INJECT 60 Meth tamiko FlexTouch 7-15 08-[address] U-100 100 00:00: 00:00 SUBCUTANEO H ospita unit/mL (3 00 :00 USLY l mL) NIGHTLY subcutaneou s pen Tresiba 0 2022- No INJECT 60 Meth tamiko FlexTouch 6-29 07-[address] U-100 100 00:00: 00:00 SUBCUTANEO H ospita unit/mL (3 00 :00 USLY l mL) NIGHTLY subcutaneou s pen carbidopa-l 2023- No 3{tbl} Q.[id number] Take 3 [facility] evodopa 6-28 06-[id number] (Sinemet) 00:00: 04:59 3D mouth 3 [facility] 25-100 mg 00 :00 (three) l per tablet times a day. cetirizine 2022-0 Yes 10mg QD Take 1 Metho di (Allergy 5-26 tablet (10 st Relief, 00:00: mg total) Hospi ta cetirizine, 00 by mouth l ) 10 MG daily. tablet sertraline 2022-0 Yes [id number] 25mg QD Take 1 M ethodi (ZOLOFT) 25 5-26 tablet (25 st MG tablet 00:00: mg total) Hos [facility]cas 00 by mouth l daily. sertraline 2023-0 Yes [id number] 25mg QD Take 1 M ethodi (ZOLOFT) 25 5-26 tablet (25 st MG tablet 00:00: mg total) Hos dorcas 00 by mouth l daily. cetirizine 2022-0 Yes 10mg QD Take 1 Metho di (Allergy 5-26 tablet (10 st Relief, 00:00: mg total) Hospi ta cetirizine, 00 by mouth l ) 10 MG daily. tablet atorvastati 2023- No [id number] 40mg QD Take 1 Methodi n (LIPITOR) 5-08 11-26 tablet (40 s t 40 mg 00:00: 04:59 mg total) Hospit a tablet 00 :00 by mouth l daily. atorvastati 2022- No [id number] 40mg QD Take 1 Methodi n (LIPITOR) -11 03-22 tablet (40 s t 40 mg 00:00: 00:00 mg total) Hospit a tablet 00 :00 by mouth l daily. furosemide Yes Take 1 Metho di (LASIX) 20 5-[address] mg tablet 00:00: mouth once Ho spita 00 daily l furosemide 2022-2022- No Take 1 Meth tamiko (LASIX) 20 5-14 08-[address] mg tablet 00:00: 00:00 mouth once H ospita 00 :00 daily l gabapentin Yes 300mg Q.5D Take 1 Meth tamiko (NEURONTIN) 3-[address] 300 mg 08:56: (300 mg Hospita capsule 56 total) by l mouth 2 (two) times a day. HYDROcodone Yes 1{tbl} QD Take 1 Me thodi -acetaminop 3-[address] hen (XODOL) 08:56: mouth Hospi ta 5-300 mg 56 daily. l per tablet losartan 2022-2023- No 100mg QD Take 1 Metho di (COZAAR) 08-22- tablet st 100 MG 00:00: 05:59 (100 mg Hospita tablet 00 :00 total) by l mouth daily. losartan 2023- No 100mg QD Take 1 Metho di (COZAAR) 08-22-[address] 100 MG 00:00: 05:59 (100 mg Hospita tablet 00 :00 total) by l mouth daily. sertraline 2022- No [id number] Take 1 Methodi (ZOLOFT) 25 2-26 05-[address] MG tablet 00:00: 00:00 mouth once H ospita 00 :00 daily l sertraline 2022- No [id number] Take 1 Methodi (ZOLOFT) 25 - 05-[address] MG tablet 00:00: 00:00 mouth once H ospita 00 :00 daily l meloxicam 2022- No 7.5mg Q.5D Take 1 Meth tamiko (MOBIC) 7.5 08-11-[address] mg tablet 00:00: 00:00 (7.5 mg [facility] 00 :00 total) by l mouth 2 (two) times a day. meloxicam 2022- No 7.5mg Q.5D Take 1 Meth tamiko (MOBIC) 7.5 08-11-[address] mg tablet 00:00: 00:00 (7.5 mg [facility] 00 :00 total) by l mouth 2 (two) times a day. Tresiba Yes 70U QD Inject 70 Metho di FlexTouch 2-[address] U-100 100 00:00: under the Hos [facility] unit/mL (3 00 skin l mL) nightly. subcutaneou s pen Tresiba 2022- No 70U QD Inject 70 Meth tamiko FlexTouch 2-08 06-[address] U-100 100 00:00: 00:00 under the Ho spita unit/mL (3 00 :00 skin l mL) nightly. subcutaneou s pen flash 2021-06- No [id number] APPLY 1 Meth tamiko glucose 07-17-[address] sensor 00:00: 00:00 14 DAYS Hospita (FreeStyle 00 :00 l Sena 14 Day Sensor) kit flash 2021-06- No [id number] APPLY 1 Meth tamiko glucose 07-[address] sensor 00:00: 00:00 14 DAYS Hospita (FreeStyle 00 :00 l Sena 14 Day Sensor) kit losartan 2021-06- No [id number] 50mg QD Take 1 Me thodi (COZAAR) 50 07-13 03-09 tablet (50 s t MG tablet 00:00: 00:00 mg total) Ho spita 00 :00 by mouth l daily. losartan 2021-06- No [id number] 50mg QD Take 1 Me thodi (COZAAR) 50 1-28 03-09 tablet (50 s t MG tablet 00:00: 00:00 mg total) Ho spita 00 :00 by mouth l daily. gabapentin 2021-06 Yes 300mg Q.5D Take 300 Me thodi (NEURONTIN) 0-[address] 300 mg 13:29: mouth 2 Hospita capsule 29 (two) l times a day. HYDROcodone 2021-06 Yes 1{tbl} QD Take 1 Me thodi -acetaminop 0-[address] hen (XODOL) 13:29: mouth Hospi ta 5-300 mg 29 daily. l per tablet carbidopa-l 2021-06- No 3{tbl} Q.[id number] Take 3 [facility]i evodopa 0-13 10-[id number] (Sinemet) 00:00: 04:59 3D mouth 3 [facility] 25-100 mg 00 :00 (three) l per tablet times a day. carbidopa-l 2021-06 No 3{tbl} Q.[id number] Take 3 [facility] evodopa 0-13 10-[id number] (Sinemet) 00:00: 04:59 3D mouth 3 [facility] 25-100 mg 00 :00 (three) l per tablet times a day. carbidopa-l 2021-06 No 3{tbl} Q.[id number] Take 3 [facility] evodopa 0-13 -[id number] (Sinemet) 00:00: 00:00 3D mouth 3 [facility] 25-100 mg 00 :00 (three) l per tablet times a day. traMADoL 2021- [place] [id number] 50mg Take 50 mg M ethodi (ULTRAM) 50 03-[address] mg tablet 11:39: 00:00 as needed Ho spita 26 :00 for l moderate pain .acute pain. traMADoL 2021- No [id number] 50mg Take 50 mg M ethodi (ULTRAM) 50 03-[address] mg tablet 11:39: 00:00 as needed Ho spita 26 :00 for l moderate pain .acute pain. ibrutinib 2021- No 40U Q.5D Take 40 Meth tamiko (IMBRUVICA) 03-01-[address] 420 mg 11:39: 00:00 mouth 2 Hospita tablet 04 :00 (two) l times a day. ibrutinib 2021- No 40U Q.5D Take 40 Meth tamiko (IMBRUVICA) 03-01-[address] 420 mg 11:39: 00:00 mouth 2 Hospita tablet 04 :00 (two) l times a day. sertraline Yes [id number] 25mg QD Take 1 M ethodi (ZOLOFT) 25 02-21 tablet (25 st MG tablet 00:00: mg total) Hos [facility] 00 by mouth l daily. sertraline 2022- No [id number] 25mg QD Take 1 Methodi (ZOLOFT) 25 02-21 02- tablet (25 s t MG tablet 00:00: 00:00 mg total) Ho spita 00 :00 by mouth l daily. sertraline 2022- No [id number] 25mg QD Take 1 Methodi (ZOLOFT) 25 02-21 02- tablet (25 s t MG tablet 00:00: 00:00 mg total) Ho spita 00 :00 by mouth l daily. insulin Yes [id number] 18U Q.[id number] Inject Methodi LISPRO 8-[id number] (HumaLOG 00:00: 3D (18 Units [facility] KwikPen 00 total) l Insulin) under the 200 unit/mL skin 3 (3 mL) (three) insulin pen times a subcutaneou day before s pen meals. insulin Yes [id number] 18U Q.[id number] Inject Methodi LISPRO 8-[id number] (HumaLOG 00:00: 3D (18 Units [facility] KwikPen 00 total) l Insulin) under the 200 unit/mL skin 3 (3 mL) (three) insulin pen times a subcutaneou day before s pen meals. insulin 2022- No [id number] 18U Q.[id number] Inject Methodi LISPRO 8-25 10- [id number] 0.[address] (HumaLOG 00:00: 00:00 3D (18 Units [facility] KwikPen 00 :00 total) l Insulin) under the 200 unit/mL skin 3 (3 mL) (three) insulin pen times a subcutaneou day before s pen meals. atorvastati 2022- No [id number] 40mg QD Take 1 Methodi n (LIPITOR) 02-0524 tablet (40 s t 40 mg 00:00: 04:59 mg total) Hospit a tablet 00 :00 by mouth l daily. atorvastati 2022- No [id number] 40mg QD Take 1 Methodi n (LIPITOR) 02-05 tablet (40 s t 40 mg 00:00: 00:00 mg total) Hospit a tablet 00 :00 by mouth l daily. atorvastati 2022- No [id number] 40mg QD Take 1 Methodi n (LIPITOR) 02-05 tablet (40 s t 40 mg 00:00: 00:00 mg total) Hospit a tablet 00 :00 by mouth l daily. insulin 2021- No 10U Inject 10 Meth tamiko lispro 7- 07-[address] (HUMALOG 14:16: 00:00 under the Hos [facility] U-100 02 :00 skin. l INSULIN SUBQ) insulin 2021- No 10U Inject 10 Meth tamiko lispro 7-29 07-[address] (HUMALOG 14:16: 00:00 under the Hos dorcas U-100 02 :00 skin. l INSULIN SUBQ) insulin 2021- No [id number] 60U QD Inject 0.6 Methodi degludec 7-29 10-28 mL (60 st (Tresiba 00:00: 04:59 Units Hospita FlexTouch 00 :00 total) l U-100) 100 under the unit/mL (3 skin mL) nightly subcutaneou for 90 s pen days. insulin 2021- No [id number] 60U QD Inject 0.6 Methodi degludec 7-29 10-28 mL (60 st (Tresiba 00:00: 04:59 Units Hospita FlexTouch 00 :00 total) l U-100) 100 under the unit/mL (3 skin mL) nightly subcutaneou for 90 s pen days. insulin 2021- No 16U Q.[id number] Inject M ethodi LISPRO 01-[id number] (HumaLOG 00:00: 00:00 3D (16 Units [facility] KwikPen 00 :00 total) l Insulin) under the 200 unit/mL skin 3 (3 mL) (three) insulin pen times a subcutaneou day before s pen meals. insulin 2021- No 16U Q.[id number] Inject M ethodi LISPRO 01-[id number] (HumaLOG 00:00: 00:00 3D (16 Units Hos [facility] KwikPen 00 :00 total) l Insulin) under the 200 unit/mL skin 3 (3 mL) (three) insulin pen times a subcutaneou day before s pen meals. alendronate 2022- No [id number] 70mg Q1W Take 1 Methodi (Fosamax) 6-11 tablet (70 st 70 MG 00:00: 04:59 mg total) Hospit a tablet 00 :00 by mouth l every 7 days. Take in the morning with a full glass of water on an empty stomach, do NOT take anything else by mouth or lie down for the next 30 min. alendronate 2022- No [id number] 70mg Q1W Take 1 [facility]i (Fosamax) 6-10 -11 tablet (70 st 70 MG 00:00: 04:59 mg total) Hospit a tablet 00 :00 by mouth l every 7 days. Take in the morning with a full glass of water on an empty stomach, do NOT take anything else by mouth or lie down for the next 30 min. alendronate 2022- No [id number] 70mg Q1W Take 1 Methodi (Fosamax) 6-10 -11 tablet (70 st 70 MG 00:00: 04:59 mg total) Hospit a tablet 00 :00 by mouth l every 7 days. Take in the morning with a full glass of water on an empty stomach, do NOT take anything else by mouth or lie down for the next 30 min. insulin 2021- No [id number] 0U Q.[id number] Inject [facility] lispro -06 22- [id number] 0-[address] (ADMELOG) 00:00: 00:00 3D under the Ho spita 100 unit/mL 00 :00 skin 3 l injection (three) pen times a day with meals. Per sliding scale insulin 2021- No [id number] 0U Q.[id number] Inject Methodi lispro 11-14- [id number] 0-[address] (ADMELOG) 00:00: 00:00 3D under the Ho spita 100 unit/mL 00 :00 skin 3 l injection (three) pen times a day with meals. Per sliding scale icosapent 0 Yes 2g Q.5D Take 2 Method i ethyL 5-[address] (Vascepa) 1 00:00: (2 g Hospit a gram 00 total) by l capsule mouth 2 (two) times a day with meals. icosapent 0 Yes 2g Q.5D Take 2 Method i ethyL 5-[address] (Vascepa) 1 00:00: (2 g Hospit a gram 00 total) by l capsule mouth 2 (two) times a day with meals. icosapent 0 Yes 2g Q.5D Take 2 Method i ethyL 5-[address] (Vascepa) 1 00:00: (2 g Hospit a gram 00 total) by l capsule mouth 2 (two) times a day with meals. insulin 2021- No [id number] 50U QD Inject 0.5 Methodi degludec 5-17 07-29 mL (50 st (Tresiba 00:00: 00:00 Units Hospita FlexTouch 00 :00 total) l U-100) 100 under the unit/mL (3 skin mL) nightly subcutaneou for 90 s pen days. insulin 2021- No [id number] 50U QD Inject 0.5 Methodi degludec 5-17 07-29 mL (50 st (Tresiba 00:00: 00:00 Units Hospita FlexTouch 00 :00 total) l U-100) 100 under the unit/mL (3 skin mL) nightly subcutaneou for 90 s pen days. sertraline 2021- No [id number] 25mg QD Take 1 Methodi (ZOLOFT) 25 10-22-08 tablet (25 s t MG tablet 00:00: 00:00 mg total) Ho spita 00 :00 by mouth l daily. sertraline 2021- No [id number] 25mg QD Take 1 Methodi (ZOLOFT) 25 10-22-08 tablet (25 s t MG tablet 00:00: 00:00 mg total) Ho spita 00 :00 by mouth l daily. insulin 2021- No [id number] 50U QD Inject 0.5 Methodi degludec 10-22 05-17 mL (50 st (Tresiba 00:00: 00:00 Units Hospita FlexTouch 00 :00 total) l U-100) 100 under the unit/mL (3 skin mL) nightly subcutaneou for 90 s pen days. insulin 2021- No [id number] 50U QD Inject 0.5 Methodi degludec 10-02 05-08 mL (50 st (Tresiba 00:00: 00:00 Units Hospita FlexTouch 00 :00 total) l U-100) 100 under the unit/mL (3 skin mL) nightly. subcutaneou s pen insulin 2021- No [id number] 50U QD Inject 0.5 Methodi degludec 10-01 04-19 mL (50 st (Tresiba 00:00: 00:00 Units Hospita FlexTouch 00 :00 total) l U-100) 100 under the unit/mL (3 skin mL) nightly. subcutaneou s pen furosemide Yes Take 1 Metho di (LASIX) 20 4-[address] mg tablet 00:00: mouth once Ho spita 00 daily l furosemide 2022- No Take 1 Meth tamiko (LASIX) 20 4-17 05-[address] mg tablet 00:00: 00:00 mouth once H ospita 00 :00 daily l furosemide 2022- No Take 1 Meth tamiko (LASIX) 20 4-17 05-[address] mg tablet 00:00: 00:00 mouth once H ospita 00 :00 daily l carbidopa-l 2021- No 2{tbl} Q.[id number] Take 2 [facility]i evodopa 3-24 03-[id number] (Sinemet) 00:00: 00:00 3D mouth 3 [facility] 25-100 mg 00 :00 (three) l per tablet times a day. carbidopa-l 2021-2021- No 2{tbl} Q.[id number] Take 2 [facility] evodopa 3-24 03-[id number] (Sinemet) 00:00: 00:00 3D mouth 3 [facility] 25-100 mg 00 :00 (three) l per tablet times a day. cetirizine Yes 10mg QD Take 1 Metho di (Allergy 3-21 tablet (10 Relief, 00:00: mg total) Hospi ta cetirizine, 00 by mouth l ) 10 MG daily. tablet metFORMIN Yes [id number] 1000mg QD Take 2 [facility] XR 3-[address] (GLUCOPHAGE 00:00: (1,000 mg H ospita -XR) 500 mg 00 total) by l 24 hr mouth tablet daily with breakfast. metFORMIN Yes [id number] 1000mg QD Take 2 [facility] XR 3-[address] (GLUCOPHAGE 00:00: (1,000 mg H ospita -XR) 500 mg 00 total) by l 24 hr mouth tablet daily with breakfast. metFORMIN Yes [id number] 1000mg QD Take 2 [facility] XR 3-[address] (GLUCOPHAGE 00:00: (1,000 mg H ospita -XR) 500 mg 00 total) by l 24 hr mouth tablet daily with breakfast. cetirizine 2022- No 10mg QD Take 1 Meth tamiko (Allergy 3-21 05-26 tablet (10 st Relief, 00:00: 00:00 mg total) [facility] cetirizine, 00 :00 by mouth l ) 10 MG daily. tablet cetirizine 2021-0 2022- No 10mg QD Take 1 Meth tamiko (Allergy 3-21 05-26 tablet (10 st Relief, 00:00: 00:00 mg total) [facility] cetirizine, 00 :00 by mouth l ) 10 MG daily. tablet insulin 2021- No [id number] 50U QD Inject 0.5 [facility] degludec 09-03 04-18 mL (50 st (Tresiba 00:00: 00:00 Units Hospita FlexTouch 00 :00 total) l U-100) 100 under the unit/mL (3 skin mL) nightly. subcutaneou s pen furosemide 2021- No 20mg QD Take 1 Meth tamiko (LASIX) 20 09-03 04-17 tablet (20 st mg tablet 00:00: 00:00 mg total) Ho spita 00 :00 by mouth l daily. insulin 2021- No [id number] 50U QD Inject 0.5 Methodi degludec 08-08 03-19 mL (50 st (Tresiba 00:00: 00:00 Units Hospita FlexTouch 00 :00 total) l U-100) 100 under the unit/mL (3 skin mL) nightly. subcutaneou s pen dulaglutide Yes [id number] .75mg Q1W Inject 0.5 Methodi (Trulicity) 1-07 mL (0.75 st 0.75 mg/0.5 00:00: mg total) H ospita mL 00 under the l subcutaneou skin every s pen 7 days. dulaglutide 2021- No [id number] .75mg Q1W Inject 0.5 [facility] (Trulicity) 1-07 05-18 mL (0.75 st 0.75 mg/0.5 00:00: 00:00 mg total) Hospita mL 00 :00 under the l subcutaneou skin every s pen 7 days. Tresiba Yes [id number] INJECT 60 M ethodi FlexTouch 1-[address] U-100 100 00:00: SUBCUTANEO Ho spita unit/mL (3 00 USLY l mL) NIGHTLY subcutaneou s pen Tresiba 2021- No [id number] INJECT 60 [facility] FlexTouch 1-03 02-[address] U-100 100 00:00: 00:00 SUBCUTANEO H ospita unit/mL (3 00 :00 USLY l mL) NIGHTLY subcutaneou s pen sertraline Yes [id number] Take 1 M ethodi (ZOLOFT) 25 06-[address] MG tablet 00:00: mouth once Ho spita 00 daily l sertraline 2021- No [id number] Take 1 Methodi (ZOLOFT) 25 06-16 05-[address] MG tablet 00:00: 00:00 mouth once H ospita 00 :00 daily l furosemide 2020-06 Yes Take 1 Metho di (LASIX) 20 2-[address] mg tablet 00:00: mouth once Ho spita 00 daily l furosemide 2020-06- No Take 1 Meth tamiko (LASIX) 20 2-29 03-[address] mg tablet 00:00: 00:00 mouth once H ospita 00 :00 daily l flash 2020-06 Yes [id number] 1{appli Q14D 1 Metho di glucose 2-17 cator} applicator st sensor 00:00: every 14 Hospita (FreeStyle 00 (fourteen) l Sena 14 days. Day Sensor) kit flash 2020-06 Yes [id number] 1{appli Q14D 1 Metho di glucose 2-17 cator} applicator st sensor 00:00: every 14 Hospita (FreeStyle 00 (fourteen) l Sena 14 days. Day Sensor) kit flash 2020-06- No [id number] 1{appli Q14D 1 Meth tamiko glucose 2-17 05-16 cator} applicator st sensor 00:00: 00:00 every 14 Hospit a (FreeStyle 00 :00 (fourteen) l [place] 14 days. Day Sensor) kit flash 2020-06- No [id number] 1{appli Q14D 1 [facility] tamiko glucose 2-17 05-16 cator} applicator st sensor 00:00: 00:00 every 14 Hospit a (FreeStyle 00 :00 (fourteen) l [facility] 14 days. Day Sensor) kit insulin 2020-06 Yes 10U Inject 10 Metho di lispro 2-[address] (HUMALOG 09:55: under the [facility] U-100 41 skin. l INSULIN SUBQ) ibrutinib 2020-06 Yes 40U Q.5D Take 40 Metho di (IMBRUVICA) 2-[address] 420 mg 09:32: mouth 2 Hospita tablet 14 (two) l times a day. traMADoL 2020-06 Yes [id number] 50mg Take 50 mg [facility] (ULTRAM) 50 2-[address] mg tablet 09:32: as needed Hos dorcas 14 for l moderate pain .acute pain. cetirizine 2020-06 Yes 10mg QD Take 1 [facility] di (Allergy 2-14 tablet (10 st Relief, 00:00: mg total) Hospi ta cetirizine, 00 by mouth l ) 10 MG daily. tablet metFORMIN 2020-06 Yes [id number] 1000mg QD Take 2 [facility] XR 2-[address] (GLUCOPHAGE 00:00: (1,000 mg H ospita -XR) 500 mg 00 total) by l 24 hr mouth tablet daily with breakfast. cetirizine 2020-06- No 10mg QD Take 1 [facility] tamiko (Allergy 2-14 03-19 tablet (10 st Relief, 00:00: 00:00 mg total) [facility] cetirizine, 00 :00 by mouth l ) 10 MG daily. tablet metFORMIN 2020-06- No [id number] 1000mg QD Take 2 [facility] XR 2-14 03-[address] (GLUCOPHAGE 00:00: 00:00 (1,000 mg Hospita -XR) 500 mg 00 :00 total) by l 24 hr mouth tablet daily with breakfast. Trulicity 2020-06- No [id number] INJECT M ethodi 0.75 mg/0.5 07-[address] mL 00:00: 00:00 SUBCUTANEO Hospit a subcutaneou 00 :00 USLY ONCE l s pen A WEEK FOR 30 DAYS Trulicity 2020-06- No [id number] INJECT M ethodi 0.75 mg/0.5 07-[address] mL 00:00: 00:00 SUBCUTANEO Hospit a subcutaneou 00 :00 USLY ONCE l s pen A WEEK FOR 30 DAYS losartan 2020-06- No [id number] 50mg QD Take 1 [facility] (COZAAR) 50 1-04 11-28 tablet (50 s t MG tablet 00:00: 00:00 mg total) Ho spita 00 :00 by mouth l daily. losartan 2020-06- No [id number] 50mg QD Take 1 [facility] (COZAAR) 50 06-19 tablet (50 s t MG tablet 00:00: 00:00 mg total) Ho spita 00 :00 by mouth l daily. losartan 2020-06- No [id number] 50mg QD Take 1 [facility] (COZAAR) 50 06-19 tablet (50 s t MG tablet 00:00: 04:59 mg total) Ho spita 00 :00 by mouth l daily. atorvastati 2020-06- No [id number] 40mg QD Take 1 [facility] n (LIPITOR) 06-19 tablet (40 s t 40 mg 00:00: 04:59 mg total) Hospit a tablet 00 :00 by mouth l daily. losartan 2020-06- No [id number] 50mg QD Take 1 [facility] (COZAAR) 50 06-19 tablet (50 s t MG tablet 00:00: 04:59 mg total) Ho spita 00 :00 by mouth l daily. atorvastati 2020-06- No [id number] 40mg QD Take 1 Method[facility] n (LIPITOR) 06-19 tablet (40 s t 40 mg 00:00: 00:00 mg total) Hospit a tablet 00 :00 by mouth l daily. atorvastati 2020-06- No [id number] 40mg QD Take 1 [facility] n (LIPITOR) 06-19 tablet (40 s t 40 mg 00:00: 00:00 mg total) Hospit a tablet 00 :00 by mouth l daily. insulin 2020-06- No 0U [id number] Inject M ethodi LISPRO 0-15 - [id number] 0-0.15 mL s t (HumaLOG 00:00: 05:59 3D (0-15 Hospita KwikPen 00 :00 Units l Insulin) total) 100 unit/mL under the subcutaneou skin 3 s pen (three) times a day before meals for 30 days. insulin 2020-06- No 0U [id number] Inject M ethodi LISPRO 0-15 -15 [id number] 0-0.15 mL s t (HumaLOG 00:00: 05:59 3D (0-15 Hospita KwikPen 00 :00 Units l Insulin) total) 100 unit/mL under the subcutaneou skin 3 s pen (three) times a day before meals for 30 days. furosemide 2020- No 20mg QD Take 1 [facility] tamiko (Lasix) 20 9-16 12-29 tablet (20 st mg tablet 00:00: 00:00 mg total) Ho spita 00 :00 by mouth l daily. furosemide No 20mg QD Take 1 [facility] (Lasix) 20 9-16 12-29 tablet (20 st mg tablet 00:00: 00:00 mg total) Ho spita 00 :00 by mouth l daily. pen needle, Yes [id number] Use once [facility] diabetic 32 9-[address] gauge x 00:00: insulin as [facility] 532" 00 instructio l needle n pen needle, Yes [id number] Use once [facility] diabetic 32 9-[address] gauge x 00:00: insulin as [facility] 5/32" 00 instructio l needle n pen needle, Yes [id number] Use once [facility] diabetic 32 9-[address] gauge x 00:00: insulin as [facility] 5/32" 00 instructio l needle n pen needle, Yes [id number] Use once [facility] diabetic 32 9-[address] gauge x 00:00: insulin as [facility] 5/32" 00 instructio l needle n insulin 2021- No [id number] 60U QD Inject 0.6 [facility] degludec 02-15-03 mL (60 st (Tresiba 00:00: 00:00 Units Hospita FlexTouch 00 :00 total) l U-100) 100 under the unit/mL (3 skin mL) nightly subcutaneou for 30 s pen days. insulin 2021- No [id number] 60U QD Inject 0.6 [facility] degludec 02-15-03 mL (60 st (Tresiba 00:00: 00:00 Units Hospita FlexTouch 00 :00 total) l U-100) 100 under the unit/mL (3 skin mL) nightly subcutaneou for 30 s pen days. dulaglutide 2020- No [id number] .75mg Q1W Inject 0.5 [facility] (Trulicity) 02-15 11-30 mL (0.75 st 0.75 mg/0.5 00:00: 00:00 mg total) Hospita mL 00 :00 under the l subcutaneou skin every s pen 7 days for 30 days. dulaglutide 2020- No [id number] .75mg Q1W Inject 0.5 [facility] (Trulicity) 02-15 11-30 mL (0.75 st 0.75 mg/0.5 00:00: 00:00 mg total) Hospita mL 00 :00 under the l subcutaneou skin every s pen 7 days for 30 days. metFORMIN 2020- No [id number] TAKE 2 [facility] XR 02-[address] (GLUCOPHAGE 00:00: 00:00 MOUTH ONCE Hospita -XR) 500 mg 00 :00 DAILY WITH l 24 hr BREAKFAST tablet metFORMIN 2020- No [id number] TAKE 2 [facility] XR 02-[address] (GLUCOPHAGE 00:00: 00:00 MOUTH ONCE Hospita -XR) 500 mg 00 :00 DAILY WITH l 24 hr BREAKFAST tablet gabapentin 2020- No 300mg Q.[id number] Take 300 [facility] (NEURONTIN) 8 08-[id number] 300 mg 09:56: 00:00 3D mouth 3 Hospita capsule 04 :00 (three) l times a day. empaglifloz 2020- No [id number] 25mg QD Take 1 [facility] in 12-2516 tablet (25 st (Jardiance) 00:00: 00:00 mg total) Hospita 25 mg 00 :00 by mouth l tablet daily. empaglifloz 2020- No [id number] 25mg QD Take 1 [facility] in 12-2516 tablet (25 st (Jardiance) 00:00: 00:00 mg total) Hospita 25 mg 00 :00 by mouth l tablet daily. pioglitazon 2020- No [id number] 15mg QD Take 1 Method[facility] e (Actos) 12-25 tablet (15 st 15 MG 00:00: 00:00 mg total) Hospit a tablet 00 :00 by mouth l daily. fluconazole 2020- No 150mg Take 1 Me [facility] (Diflucan) 12-[address] 150 MG 00:00: 04:59 (150 mg Hospita tablet 00 :00 total) by l mouth once for 1 dose. tiZANidine Yes [id number] 2mg Q.5D Take 1 M ethodi (ZANAFLEX) 12-12 tablet (2 st 2 MG tablet 00:00: mg total) H ospita 00 by mouth 2 l (two) times a day as needed for muscle spasms. tiZANidine 2021- No [id number] 2mg Q.5D Take 1 [facility] (ZANAFLEX) 12-12 tablet (2 st 2 MG tablet 00:00: 00:00 mg total) Hospita 00 :00 by mouth 2 l (two) times a day as needed for muscle spasms. tiZANidine 2021- No [id number] 2mg Q.5D Take 1 [facility] (ZANAFLEX) 12-12 tablet (2 st 2 MG tablet 00:00: 00:00 mg total) Hospita 00 :00 by mouth 2 l (two) times a day as needed for muscle spasms. sertraline 2021- No [id number] 25mg QD Take 1 [facility] (ZOLOFT) 12-12 tablet (25 s t MG tablet 00:00: 00:00 mg total) Ho spita 00 :00 by mouth l daily. sertraline 2021- No [id number] 25mg QD Take 1 [facility] (ZOLOFT) 12-12 tablet (25 s t MG tablet 00:00: 00:00 mg total) Ho spita 00 :00 by mouth l daily. repaglinide 2020- No 1mg Q.[id number] Take 1 [facility] (PRANDIN) 1 11-27 [id number] tablet (1 st MG tablet 00:00: 00:00 3D mg total) Ho spita 00 :00 by mouth 3 l (three) times a day before meals. Allergy 2020- No Take 1 [facility] Relief, 11-[address] cetirizine, 00:00: 00:00 mouth once Hospita 10 mg 00 :00 daily l tablet Allergy 2020- No Take 1 [facility] Relief, 11-[address] cetirizine, 00:00: 00:00 mouth once Hospita 10 mg 00 :00 daily l tablet losartan 2020- No Take 1 Method i (COZAAR) 11-[address] MG tablet 00:00: 00:00 mouth once H ospita 00 :00 daily l losartan 2020- No Take 1 Method i (COZAAR) 11-[address] MG tablet 00:00: 00:00 mouth once H ospita 00 :00 daily l metFORMIN 2020- No [id number] TAKE 2 [facility] XR 11-[address] (GLUCOPHAGE 00:00: 00:00 MOUTH ONCE Hospita -XR) 500 mg 00 :00 DAILY WITH l 24 hr BREAKFAST tablet empaglifloz 2020- No [id number] 25mg QD Take 1 [facility] in 10-12 tablet (25 st (Jardiance) 00:00: 00:00 mg total) Hospita 25 mg 00 :00 by mouth l tablet daily. Jardiance 2020- No Take 1 Metho di 10 mg 09-[address] tablet 00:00: 00:00 mouth once [facility] tablet 00 :00 daily l losartan 2020- No Take 1 Method i (COZAAR) 09-[address] MG tablet 00:00: 00:00 mouth once H ospita 00 :00 daily l Allergy 2020- No Take 1 [facility] Relief, 09-[address] cetirizine, 00:00: 00:00 mouth once Hospita 10 mg 00 :00 daily l tablet tiZANidine 2020- No 2mg Q8H Take 1 Meth tamiko (ZANAFLEX) 08-28-15 tablet (2 st 2 MG tablet 00:00: 04:59 mg total) Hospita 00 :00 by mouth l every 8 (eight) hours as needed for muscle spasms for up to 30 days. sertraline 2020- No [id number] Take 1 [facility] (ZOLOFT) 25 2-20 12-[address] MG tablet 00:00: 00:00 mouth once H ospita 00 :00 daily l insulin 2020- No [id number] 60 units M ethodi DETEMIR 07-[address] (Levemir 00:00: 00:00 and pm Hospit a FlexTouch 00 :00 l U-100 Insuln) 100 unit/mL (3 mL) insulin pen tiZANidine 2020- No [id number] 2mg Q.5D Take 1 [facility] (ZANAFLEX) 07-01 tablet (2 st 2 MG tablet 00:00: 00:00 mg total) Hospita 00 :00 by mouth 2 l (two) times a day as needed for muscle spasms. gabapentin 2020- No [id number] 100mg Q.5D Take 1 [facility] (Neurontin) 06-[address] 100 mg 00:00: 00:00 (100 mg Hospita capsule 00 :00 total) by l mouth 2 (two) times a day. desvenlafax 2019-06- No [id number] TAKE 1 [facility] ine 50 mg 2-27 12-[address] tablet 00:00: 00:00 MOUTH ONCE [facility] extended 00 :00 DAILY l release 24hr desvenlafax 2019-06- No [id number] TAKE 1 [facility] ine 50 mg 2-27 12-[address] tablet 00:00: 00:00 MOUTH ONCE [facility] extended 00 :00 DAILY l release 24hr flash 2019-06 Yes [id number] 1{kit} QD 1 kit Metho di glucose 2-[address] scanning 00:00: Hospita reader 00 l (FreeStyle [facility] 14 Day [place]) [facility] flash 2019-06 Yes [id number] 1{kit} QD 1 kit Meth[facility] di glucose 2-[address] scanning 00:00: Hospita reader 00 l (FreeStyle [facility] 14 Day [place]) [facility] 2019-06 Yes [id number] 1{kit} QD 1 kit Metho di glucose 2-[address] scanning 00:00: Hospita reader 00 l (FreeStyle [facility] 14 Day [place]) [facility] 2019-06 Yes [id number] 1{kit} QD 1 kit Metho di glucose 2-[address] scanning 00:00: Hospita reader 00 l (FreeStyle [facility] 14 Day [place]) [facility] 2019-06- No [id number] 1{appli Q14D 1 Meth tamiko glucose 2-24 12-17 cator} applicator st sensor 00:00: 00:00 every 14 Hospit a (FreeStyle 00 :00 (fourteen) l [facility] 14 days. Day Sensor) [facility] 2019-06- No [id number] 1{appli Q14D 1 Meth tamiko glucose 2-24 12-17 cator} applicator st sensor 00:00: 00:00 every 14 Hospit a (FreeStyle 00 :00 (fourteen) l [facility] 14 days. Day Sensor) kit Allergy 2019-06- No Take 1 [facility] Relief, 08-07- tablet by st cetirizine, 00:00: 00:00 mouth once Hospita 10 mg 00 :00 daily l tablet losartan 2019-06- No Take 1 Method i (COZAAR) 25 08-07-[address] MG tablet 00:00: 00:00 mouth once H ospita 00 :00 daily l furosemide 2019-06- No 20mg QD Take 1 Meth tamiko (Lasix) 20 08-06 09-16 tablet (20 st mg tablet 00:00: 00:00 mg total) Ho spita 00 :00 by mouth l daily. atorvastati 2019-06- No [id number] Take 1 Methodi n (LIPITOR) 06-25- tablet by st 20 mg 00:00: 00:00 mouth once Hospi ta tablet 00 :00 daily l atorvastati 2019-06- No [id number] Take 1 Method[facility] n (LIPITOR) 06-25-[address] 20 mg 00:00: 00:00 mouth once Hospi ta tablet 00 :00 daily l repaglinide 2020- No 1mg Q.[id number] Take 1 [facility] (PRANDIN) 1 03-08 06-14 [id number] tablet (1 st MG tablet 00:00: 00:00 3D mg total) Ho spita 00 :00 by mouth 3 l (three) times a day before meals. metFORMIN 2020- No [id number] 1000mg QD Take 2 [facility] XR -27 05-[address] (GLUCOPHAGE 00:00: 00:00 (1,000 mg Hospita -XR) 500 mg 00 :00 total) by l 24 hr mouth tablet daily with breakfast. empaglifloz 2020- No 10mg QD Take 1 Met hodi in 17 04-03 tablet (10 st (Jardiance) 00:00: 00:00 mg total) Hospita 10 mg 00 :00 by mouth l tablet daily. tablet repaglinide 2020- No 1{tbl} Q.[id number] Take 1 [facility] (PRANDIN) 1 -18 12-[id number] MG tablet 00:00: 00:00 3D mouth 3 [facility] 00 :00 (three) l times a day. repaglinide 2020- No 1{tbl} Q.[id number] Take 1 [facility] (PRANDIN) 1 -18 12-[id number] MG tablet 00:00: 00:00 3D mouth 3 [facility] 00 :00 (three) l times a day. Immunizations Ordered Immunization Filled Date Status Comments Sour ce Name Immunization Name FLUZONE HIGH-DOSE 2022-03-09 Completed Meth odist 00:00:00 [facility] FLUZONE HIGH-DOSE 2021-04-19 Completed Meth odist 00:00:00 [facility]19 2021-04-19 Completed Methodis t MRNA VACCINATION 00:00:00 [facility] FLUZONE HIGH-DOSE 2021-04-19 Completed Meth odist 00:00:00 [facility] COVID2021-04-19 Completed Methodis t MRNA VACCINATION 00:00:00 [facility] FLUZOCO HIGH-DOSE 2021-04-19 Completed Meth odist 00:00:00 [facility] Com[facility] MRNA VACCINATION 00:00:00 [facility] COVID-19 MRNA 2020-08-04 Completed Meth odist VACCINATION 00:00:00 Hospital PFIZER COVID-19 MRNA 2020-08-04 Completed Meth odist VACCINATION 00:00:00 Hospital PFIZER COVID-19 MRNA 2020-08-04 Completed Meth odist VACCINATION 00:00:00 Hospital PFIZER COVID-19 MRNA 2020-07-14 Completed Meth odist VACCINATION 00:00:00 Hospital PFIZER COVID-19 MRNA 2020-07-14 Completed Meth odist VACCINATION 00:00:00 Hospital PFIZER COVID-19 MRNA 2020-07-14 Completed Meth odist VACCINATION 00:00:00 Hospital FLUZONE HIGH-DOSE PF 2020-02-24 Completed Meth odist 00:00:00 Hospital FLUZONE HIGH-DOSE PF 2020-02-24 Completed Meth odist 00:00:00 [facility] FLUZONE HIGH-DOSE PF 2020-02-24 Completed Meth odist 00:00:00 Hospital Influenza Whole 2019-04-11 Completed [facility] 00:00:00 Hospital Influenza Whole 2019-04-11 Completed [facility] 00:00:00 Hospital Influenza Whole 2019-04-11 Completed [facility] 00:00:00 Hospital FLUZONE HIGH-DOSE PF 2017-03-24 Completed Meth odist 00:00:00 Hospital FLUZONE HIGH-DOSE PF 2017-03-24 Completed Meth odist 00:00:00 Hospital FLUZONE HIGH-DOSE PF 2017-03-24 Completed Meth odist 00:00:00 Hospital FLUZONE HIGH-DOSE PF 2016-03-22 Completed Meth odist 00:00:00 Hospital FLUZONE HIGH-DOSE PF 2016-03-22 Completed Meth odist 00:00:00 Hospital FLUZONE HIGH-DOSE PF 2016-03-22 Completed Meth odist 00:00:00 Hospital Pneumococcal 2015-06-14 Completed [facility] Conjugate 13-Valent 00:00:00 Hospi job Pneumococcal 2015-06-14 Completed [facility] Conjugate 13-Valent 00:00:00 Hospi job Pneumococcal 2015-06-14 Completed [facility] Conjugate 13-Valent 00:00:00 Hospi job Pneumococcal 2014-12-12 Completed [facility] Conjugate 00:00:00 Hospital Pneumococcal 2014-12-12 Completed [facility] Conjugate 00:00:00 Hospital Pneumococcal 2014-12-12 Completed [facility] Conjugate 00:00:00 Hospital Influenza (IM) 2014-07-03 Completed [facility] Preservative Free 00:00:00 Hospita l Influenza (IM) 2014-07-03 Completed [facility] Preservative Free 00:00:00 Hospita l Influenza (IM) 2014-07-03 Completed [facility] Preservative Free 00:00:00 Hospita l Influenza Whole 2014-03-26 Completed [facility] 00:00:00 Hospital Influenza Whole 2014-03-26 Completed [facility] 00:00:00 Hospital Influenza Whole 2014-03-26 Completed [facility] 00:00:00 Hospital Influenza Trivalent 2013-06-24 Completed Metho dist 00:00:00 Hospital Influenza Trivalent 2013-06-24 Completed Metho dist 00:00:00 Hospital Influenza Trivalent 2013-06-24 Completed Metho dist 00:00:00 Hospital Influenza Trivalent 2012-03-12 Completed [facility]o dist 00:00:00 Hospital Tdap 2012-03-12 Completed [facility] 00:00:00 Hospital Influenza Trivalent 2012-03-12 Completed [facility]o dist 00:00:00 Hospital Tdap 2012-03-12 Completed [facility] 00:00:00 Hospital Influenza Trivalent 2012-03-12 Completed [facility] dist 00:00:00 Hospital Tdap 2012-03-12 Completed [facility] 00:00:00 Hospital Influenza Trivalent 2011-03-12 Completed [facility] dist 00:00:00 Hospital Influenza Trivalent 2011-03-12 Completed [facility] dist 00:00:00 Hospital Influenza Trivalent 2011-03-12 Completed [facility] dist 00:00:00 Hospital Influenza Trivalent 2010-04-19 Completed [facility] dist 00:00:00 Hospital Influenza Trivalent 2010-04-19 Completed [facility] dist 00:00:00 Hospital Influenza Trivalent 2010-04-19 Completed [facility] dist 00:00:00 Hospital Td 2008-05-26 Completed [facility] 00:00:00 Hospital Td 2008-05-26 Completed [facility] 00:00:00 Hospital Td 2008-05-26 Completed [facility] 00:00:00 Hospital PPD Test 2008-05-24 Completed [facility] 00:00:00 Hospital PPD Test 2008-05-24 Completed [facility] 00:00:00 Hospital PPD Test 2008-05-24 Completed [facility] 00:00:00 Hospital Pneumococcal 2008-03-25 Completed [facility] Polysaccharide 00:00:00 Hospital Pneumococcal 2008-03-25 Completed [facility] Polysaccharide 00:00:00 Hospital Pneumococcal 2008-03-25 Completed [facility] Polysaccharide 00:00:00 Hospital Influenza Trivalent Unknown Completed [facility] Influenza Trivalent Unknown Completed [facility] Influenza Trivalent Unknown Completed [facility] Influenza Trivalent Unknown Completed [facility] Influenza Whole Unknown Completed [facility] Influenza (IM) Unknown Completed [facility] Preservative Free Hospita l Pneumococcal Unknown Completed [facility] Pneumococcal Unknown Completed [facility] PPD Test Unknown Completed [facility] Tdap Unknown Completed [facility] Td Unknown Completed [facility] Pneumococcal Unknown Completed [facility] 13-Valent Hospi job FLUZONE HIGH-DOSE PF Unknown Completed [facility] FLUZONE HIGH-DOSE PF Unknown Completed [facility] Influenza Whole Unknown Completed [facility] FLUZONE HIGH-DOSE PF Unknown Completed [facility] PFIZER COVID-19 MRNA Unknown Completed [facility] PFIZER COVID-19 MRNA Unknown Completed [facility] FLUZONE HIGH-DOSE PF Unknown Completed [facility] MODERNA COVID-19 Unknown Completed [facility] FLUZONE HIGH-DOSE PF Unknown Completed [facility] FLUZONE HIGH-DOSE PF Unknown Completed [facility] Vital Signs Vital Name Observation Time Observation Value Comments Source Systolic blood 2023-04-03 13:36:00 177 mm[Hg] [facility] pressure Diastolic blood 2023-04-03 13:36:00 84 mm[Hg] [facility] pressure Heart rate 2023-04-03 13:36:00 92 /min [facility] Body temperature 2023-04-03 13:34:00 36.39 Macrina [facility] Body height 2023-04-03 13:34:00 160 cm [facility] Body weight 2023-04-03 13:34:00 76.658 kg [facility] BMI 2023-04-03 13:34:00 29.94 kg/m2 [facility] Oxygen saturation in 2023-03-17 15:54:00 98 /min [facility] Arterial blood by Pulse oximetry Body temperature 2022-09-11 13:53:00 36.72 Macrina [facility] Body height 2022-09-11 13:53:00 160 cm [facility] Body weight 2022-09-11 13:53:00 72.848 kg [facility] BMI 2022-09-11 13:53:00 28.45 kg/m2 [facility] Systolic blood 2022-08-22 14:41:00 138 mm[Hg] [facility] pressure Diastolic blood 2022-08-22 14:41:00 80 mm[Hg] [facility] pressure Heart rate 2022-08-22 14:00:00 80 /min [facility] Oxygen saturation in 2022-08-22 14:00:00 99 /min [facility] Arterial blood by Pulse oximetry Systolic blood 2022-03-29 18:22:00 124 mm[Hg] [facility] pressure Diastolic blood 2022-03-29 18:22:00 60 mm[Hg] [facility] pressure Heart rate 2022-03-29 18:22:00 103 /min [facility] Body height 2022-03-29 18:22:00 160 cm [facility] Body weight 2022-03-29 18:22:00 76.204 kg [facility] BMI 2022-03-29 18:22:00 29.76 kg/m2 [facility] Body temperature 2022-03-28 16:12:00 36.83 Macrina [facility] Oxygen saturation in 2022-02-07 17:21:00 96 /min [facility] Arterial blood by Pulse oximetry Systolic blood 2021-05-31 15:25:00 139 mm[Hg] [facility] pressure Diastolic blood 2021-05-31 15:25:00 75 [facility]Hg[facility] Heart rate 2021-05-31 15:25:00 79 /min [facility] Body temperature 2021-05-31 15:25:00 36.5 Macrina [facility] Body height 2021-05-31 15:25:00 160 cm [facility] Body weight 2021-05-31 15:25:00 71.215 kg [facility] BMI 2021-05-31 15:25:00 27.81 kg/m2 [facility] Oxygen saturation in 2021-04-19 12:36:00 98 /min [facility] Arterial blood by Pulse oximetry Procedures Procedure Date / Time Performing Clinician Source Performed CT HEAD WO CONTRAST 2023-03-19 14:31:18 She Anthony [facility] METABOLIC 2023-03-17 16:57:00 She Anthony [facility] PANEL HEMOGLOBIN A1C 2023-03-17 16:57:00 She Anthony [facility] LIPID PANEL 2023-03-17 16:57:00 She Anthony [facility] ALBUMIN WITH CREATININE 2023-03-17 16:57:00 She Anthony [facility] Sylvia AND RATIO, RANDOM URINE ESTIMATED GFR 2023-03-17 16:57:00 She Anthony [facility] METABOLIC 2022-08-22 14:55:00 She Anthony [facility] PANEL HEMOGLOBIN A1C 2022-08-22 14:55:00 She Anthony [facility] LIPID PANEL 2022-08-22 14:55:00 She Anthony [facility] POC GLUCOSE 2022-03-29 18:32:08 Muna Rader [facility] METABOLIC 2022-02-07 17:47:00 She Anthony [facility] PANEL HEMOGLOBIN A1C 2022-02-07 17:47:00 She Antohny [facility] LIPID PANEL 2022-02-07 17:47:00 She Anthony [facility] C-PEPTIDE 2022-02-07 17:47:00 She Anthony [facility] MICROALBUMIN / 2022-02-07 17:47:00 Silver Anthonyhanerasmo Mallory [facility] CREATININE URINE RATIO XR HIPS 2 VW LEFT 2021-12-18 15:19:24 Renny Aguilera [facility] ASSIGNMENT OF BENEFITS 2021-12-18 14:50:29 Doctor Unassigned, No [facility] ECG 12-LEAD 2021-10-31 13:57:13 Jerrell Clarke [facility] ECG 12-LEAD 2021-08-02 16:44:40 She Anthony [facility] URINALYSIS, COMPLETE, 2021-08-02 15:52:00 She Anthony [facility] WITH REFLEX TO CULTURE COMPREHENSIVE METABOLIC 2021-08-02 15:52:00 [facility] WITH [facility]ATELET AND 2021-08-02 15:52:00 [facility] HEMOGLOBIN A1C 2021-08-02 15:52:[address] [facility] C-[facility]PT[facility] 2021-08-02 15:52:00 Silver [facility] LIPID PANEL 2021-08-02 15:52:00 Silver Anthonyhanie [facility] THYROID STIMULATING 2021-08-02 15:52:00 [facility] 2021-08-02 15:52:00 Chi[facility] CREATINE KINASE, TOTAL 2021-08-02 15:52:00 [facility] / 2021-08-02 15:52:00 She Anthony [facility] CREATININE URINE RATIO CBC WITH PLATELET AND 2021-03-30 15:43:00 Apolonia [facility] DIFFERENTIAL FRUCTOSAMINE 2021-03-30 15:43:00 Apolonia Saunders spital COMPREHENSIVE METABOLIC 2021-03-30 15:43:00 [facility] PANEL POC GLYCOSYLATED 2021-03-30 14:42:00 Apolonia [facility]unders [facility] HEMOGLOBIN (HGB A1C) POC GLUCOSE 2021-03-30 14:30:00 Apolonia Saunders Ho spital POC GLUCOSE 2021-02-15 14:59:00 Apolonia Saunders spital URINE CULTURE 2021-01-18 15:31:00 She Anthony [facility] HEMOGLOBIN A1C 2021-01-18 15:31:00 She Anthony [facility] BASIC METABOLIC PANEL 2021-01-18 15:31:00 [facility], 2021-01-18 15:31:00 She Anthony [facility] WITH REFLEX TO CULTURE MICROALBUMIN / 2021-01-18 15:31:00 She Anthony [facility] CREATININE URINE RATIO COMPREHENSIVE METABOLIC 2020-10-12 13:52:00 She Anthony [facility] PANEL HEMOGLOBIN A1C 2020-10-12 13:52:00 She Anthony [facility] LIPID PANEL 2020-10-12 13:52:00 She Anthony [facility] C-PEPTIDE 2020-10-12 13:52:00 She Anthony [facility] MICROALBUMIN / 2020-10-12 13:52:00 She Anthony [facility] CREATININE URINE RATIO MRI PELVIS WO CONTRAST 2020-09-22 16:30:00 Jaret Be [facility] MRI LUMBAR SPINE WO 2020-09-22 15:45:00 Jaret Be [facility] CONTRAST EMG 2020-09-07 18:41:39 Jaret Be [facility] Plan of Care Planned Activity Planned Date Details Comments Source Future Scheduled 2023-04-17 Screening for [facility] Test 21:46:27 malignant neoplasm of colon (procedure) [code = 925381365] Future Scheduled 2023-04-17 Screening for [facility] Test 21:46:27 malignant neoplasm of colon (procedure) [code = 679156690] Future Scheduled 2023-04-17 Hepatitis C screening [facility] Test 21:46:27 (procedure) [code = 661793768] Future Scheduled 2023-04-17 SHINGLES VACCINES (1 Met [facility] Test 21:46:27 of 2) [code = SHINGLES VACCINES (1 of 2)] Future Scheduled 2023-04-17 DIABETIC FOOT EXAM [facility] Test 21:46:27 [code = DIABETIC FOOT EXAM] Future Scheduled 2023-04-17 Screening for [facility] Test 21:46:27 malignant neoplasm of colon (procedure) [code = 586417721] Future Scheduled 2023-04-17 COVID-19 VACCINE (4 - [facility] Test 21:46:27 ) [code = COVID-19 VACCINE ( - )] Future Scheduled 2023-04-17 BREAST CANCER [facility] Test 21:46:27 SCREENING [code = BREAST CANCER SCREENING] Future Scheduled 2023-04-17 DIABETES: RETINAL EYE [facility] Test 21:46:27 EXAM [code = DIABETES: RETINAL EYE EXAM] Future Scheduled 2023-04-17 Screening for [facility] Test 21:46:27 malignant neoplasm of colon (procedure) [code = 694016012] Future Scheduled 2023-04-17 Screening for [facility] Test 21:46:27 malignant neoplasm of colon (procedure) [code = 905302148] Future Scheduled 2022-11-10 Hepatitis C screening [facility] Test 06:43:40 (procedure) [code = 697045148] Future Scheduled 2022-11-10 SHINGLES VACCINES (1 Met [facility] Test 06:43:40 of 2) [code = SHINGLES VACCINES (1 of 2)] Future Scheduled 2022-11-10 BREAST CANCER [facility] Test 06:43:40 SCREENING [code = BREAST CANCER SCREENING] Future Scheduled 2022-11-10 DIABETES: RETINAL EYE [facility] Test 06:43:40 EXAM [code = DIABETES: RETINAL EYE EXAM] Future Scheduled 2022-11-10 DIABETIC FOOT EXAM [facility] Test 06:43:40 [code = DIABETIC FOOT EXAM] Future Scheduled 2022-11-10 COVID-19 VACCINE (4 - [facility] Test 06:43:40 Booster) [code = COVID-19 VACCINE (4 - Booster)] Future Scheduled 2022-11-10 INFLUENZA VACCINE [facility] Test 06:43:40 [code = INFLUENZA VACCINE] Future Scheduled 2022-11-10 COLONOSCOPY SCREENING [facility] Test 06:43:40 [code = COLONOSCOPY SCREENING] Future Scheduled 2022-03-29 HEPATITIS B VACCINES Met [facility] Test 13:29:59 (1 of 3 - 3-dose series) [code = HEPATITIS B VACCINES (1 of 3 - 3-dose series)] Future Scheduled 2022-03-29 Hepatitis C screening [facility] Test 13:29:59 (procedure) [code = 766564279] Future Scheduled 2022-03-29 SHINGLES VACCINES (1 Met [facility] Test 13:29:59 of 2) [code = SHINGLES VACCINES (1 of 2)] Future Scheduled 2022-03-29 BREAST CANCER [facility] Test 13:29:59 SCREENING [code = BREAST CANCER SCREENING] Future Scheduled 2022-03-29 DIABETES: RETINAL EYE [facility] Test 13:29:59 EXAM [code = DIABETES: RETINAL EYE EXAM] Future Scheduled 2022-03-29 DIABETIC FOOT EXAM [facility] Test 13:29:59 [code = DIABETIC FOOT EXAM] Future Scheduled 2022-03-29 COVID-19 VACCINE (4 - [facility] Test 13:29:59 Booster) [code = COVID-19 VACCINE (4 - Booster)] Future Scheduled 2022-03-29 INFLUENZA VACCINE [facility] Test 13:29:59 [code = INFLUENZA VACCINE] Future Scheduled 2022-03-29 COLONOSCOPY SCREENING [facility] Test 13:29:59 [code = COLONOSCOPY SCREENING] Future Scheduled 2021-07-17 Hepatitis C screening [facility] Test 07:02:42 (procedure) [code = 886673253] Future Scheduled 2021-07-17 SHINGLES VACCINES [facility] Test 07:02:42 (#1) [code = SHINGLES VACCINES (#1)] Future Scheduled 2021-07-17 DIABETES: RETINAL EYE [facility] Test 07:02:42 EXAM [code = DIABETES: RETINAL EYE EXAM] Future Scheduled 2021-07-17 DIABETIC FOOT EXAM [facility] Test 07:02:42 [code = DIABETIC FOOT EXAM] Future Scheduled 2021-07-17 BREAST CANCER [facility] Test 07:02:42 SCREENING [code = BREAST CANCER SCREENING] Future Scheduled 2021-07-17 COLONOSCOPY SCREENING [facility] Test 07:02:42 [code = COLONOSCOPY SCREENING] Encounters Start End Encounter Admission Attending Care Care Encounter Source Date/Time Date/Time Type Type Clinicians Facility Department ID 2023-04-03 2023-04-03 Bessie Araya2.840.1 [id number] Methodi 08:30:00 08:58:18 Visit Aleta Flynn 08814.1.1 927 3.430.2.7 Hospit a .3.783005 l .8 2023-04-03 2023-04-03 Outpatient BARBY, [facility] [id number] [place] 00:00:00 00:00:00 ALETA [address] 2023-03-19 2023-03-19 Outpatient CHIOMA, [facility] [id number] [place] 00:00:00 00:00:00 SHE [address] 2023-03-19 2023-03-19 Telephone Chioma, 1.2.840.1 [id number] 2099 [id number] Methodi 00:00:00 00:00:[address] B. 3.430.2.7 Hospit a .3.525558 l .8 2023-03-17 2023-03-17 Lab Chioma, 1.2.840.1 [id number] 351212 0106 Methodi 12:30:00 12:35:[address] B. 3.430.2.7 Hospit a .3.003961 l .8 2023-03-17 2023-03-17 Office Chioma, 1.2.840.1 [id number] 061679 6621 Methodi 10:45:00 12:05:22 Visit She 34613.1.[address] B. 3.430.2.7 Hospit a .3.909833 l .8 2023-03-17 2023-03-17 Outpatient [facility] [id number] [place] 00:00:00 00:00:[address] 2023-03-17 2023-03-17 [facility] [id number] [place] 00:00:00 00:00:00 SHE [address] 2023-03-17 2023-03-17 Telephone Chioma, 1.2.840.1 [id number] 2100 688896 Methodi 00:00:00 00:00:[address] B. 3.430.2.7 Hospit a .3.315273 l .8 2023-03-06 2023-03-06 [facility] [place], 1.2.840.1 [id number] 203047 9363 Methodi 00:00:00 00:00:[address] B. 3.430.2.7 Hospit a .3.774254 l .8 2023-03-06 2023-03-06 Kerrie Anthony, 1.2.840.1 [id number] 2100 552801 Methodi 00:00:00 00:00:[address] B. 3.430.2.7 Hospit a .3.239609 l .8 2023-03-04 2023-03-04 Refill Chioma, 1.2.840.1 [id number] 530942 8255 Methodi 00:00:00 00:00:[address] B. 3.430.2.7 Hospit a .3.679878 l .8 2023-03-04 2023-03-04 Refill Chioma, 1.2.840.1 [id number] 983729 9917 Methodi 00:00:00 00:00:[address] B. 3.430.2.7 Hospit a .3.722644 l .8 2023-02-28 2023-02-28 Refill Chioma, 1.2.840.1 [id number] 766678 8367 Methodi 00:00:00 00:00:[address] B. 3.430.2.7 Hospit a .3.225692 l .8 2023-02-26 2023-02-26 Talya Oswald 1.2.840.1 [id number] Methodi 00:00:00 00:00:[address] 3.430.2.7 Hospit a .3.600994 l .8 2023-02-21 2023-02-21 Refill Chioma, 1.2.840.1 [id number] 383682 3343 Methodi 00:00:00 00:00:[address] B. 3.430.2.7 Hospit a .3.124962 l .8 2023-02-01 2023-02-01 Refill Chioma, 1.2.840.1 [id number] 779628 5630 Methodi 00:00:00 00:00:[address] B. 3.430.2.7 Hospit a .3.919086 l .8 2023-01-20 2023-01-20 Refill Chioma, 1.2.840.1 [id number] 872291 6123 Methodi 00:00:00 00:00:[address] B. 3.430.2.7 Hospit a .3.904767 l .8 2022-12-28 2022-12-28 Refill Chioma, 1.2.840.1 794064285 641807 0248 Methodi 00:00:00 00:00:[address] B. 3.430.2.7 Hospit a .3.963005 l .8 2022-12-12 2022-12-12 Refill Chioma, 1.2.840.1 [id number] 923850 4180 Methodi 00:00:00 00:00:[address] B. 3.430.2.7 Hospit a .3.331128 l .8 2022-12-11 2022-12-11 Office Barby 1.2.840.1 [id number] 21 [id number] Methodi 09:00:00 09:41:37 Visit Aleta Flynn 49026.1.[address] 3.430.2.7 Hospit a .3.549112 l .8 2022-12-11 2022-12-11 Outpatient BARBY [facility] [id number] [place] 00:00:00 00:00:00 ALETA Scherer [facility] 2022-11-14 2022-11-14 Outpatient JAMES Meade [facility] [id number] [facility] 12:00:00 12:00:[address] [place] [address] 2022-11-08 2022-11-08 Refill Chioma, 1.2.840.1 [id number] 257314 1586 Methodi 00:00:00 00:00:[address] B. 3.430.2.7 Hospit a .3.400368 l .8 2022-11-08 2022-11-08 Refill Chioma, 1.2.840.1 703143911 740579 6628 Methodi 00:00:00 00:00:[address] B. 3.430.2.7 Hospit a .3.951118 l .8 2022-10-26 2022-10-26 Refill Chioma, 1.2.840.1 [id number] 088200 7245 Methodi 00:00:00 00:00:[address] B. 3.430.2.7 Hospit a .3.210862 l .8 2022-10-26 2022-10-26 Refill Chioma, 1.2.840.1 [id number] 053739 5935 Methodi 00:00:00 00:00:[address] B. 3.430.2.7 Hospit a .3.600648 l .8 2022-09-11 2022-09-11 Office Barby, 1.2.840.1 [id number] 21 [id number] Methodi 08:30:00 09:29:31 Visit Aleta Flynn 09325.1.[address] 3.430.2.7 Hospit a .3.153096 l .8 2022-09-11 2022-09-11 Office Primoer, 1.2.840.1 [id number] 21 [id number] Methodi 08:30:00 09:29:31 Visit Aleta Flynn 57191.1.[address] 3.430.2.7 Hospit a .3.665724 l .8 2022-09-11 2022-09-11 Travel 1.2.840.1 1.2.562.331 9191 533747 Methodi 00:00:00 00:00:[address] 3.430.2.7 0.2.7.3.698 Ho spita .3.979445 084.8 l .8 2022-09-11 2022-09-11 Travel 1.2.840.1 1.2.780.118 6401 165395 Methodi 00:00:00 00:00:[address] 3.430.2.7 0.2.7.3.698 Ho spita .3.453185 084.8 l .8 2022-09-05 2022-09-05 Travel 1.2.840.1 1.2.767.190 1405 120147 Methodi 00:00:00 00:00:[address] 3.430.2.7 0.2.7.3.698 Ho spita .3.323433 084.8 l .8 2022-09-05 2022-09-05 Refill Billnitzer, 1.2.840.1 [id number] 21 [id number] Methodi 00:00:00 00:00:00 Aleta Flynn 91658.1.[address] 3.430.2.7 Hospit a .3.948257 l .8 2022-09-05 2022-09-05 Travel 1.2.840.1 1.2.911.964 9960 984551 Methodi 00:00:00 00:00:[address] 3.430.2.7 0.2.7.3.698 Ho spita .3.250788 084.8 l .8 2022-09-05 2022-09-05 Refill Billnitzer, 1.2.840.1 [id number] 21 [id number] Methodi 00:00:00 00:00:00 Aleta Flynn 21774.1.[address] 3.430.2.7 Hospit a .3.858100 l .8 2022-08-22 2022-08-22 Office Chioma, 1.2.840.1 [id number] 234263 3119 Methodi 07:45:00 08:47:34 Visit She 12066.1.[address] B. 3.430.2.7 Hospit a .3.741002 l .8 2022-08-22 2022-08-22 Office Chioma, 1.2.840.1 [id number] 041153 3729 Methodi 07:45:00 08:47:34 Visit She 34149.1.[address] B. 3.430.2.7 Hospit a .3.283097 l .8 2022-08-22 2022-08-22 Travel 1.2.840.1 1.2.389.532 1817 532037 Methodi 00:00:00 00:00:[address] 3.430.2.7 0.2.7.3.698 Ho spita .3.703642 084.8 l .8 2022-08-22 2022-08-22 Travel 1.2.840.1 1.2.972.503 8296 275669 Methodi 00:00:00 00:00:[address] 3.430.2.7 0.2.7.3.698 Ho spita .3.067520 084.8 l .8 2022-08-15 2022-08-15 Travel 1.2.840.1 1.2.831.905 9120 755745 Methodi 00:00:00 00:00:[address] 3.430.2.7 0.2.7.3.698 Ho spita .3.546333 084.8 l .8 2022-08-15 2022-08-15 Travel 1.2.840.1 1.2.524.412 1161 850584 Methodi 00:00:00 00:00:[address] 3.430.2.7 0.2.7.3.698 Ho spita .3.991827 084.8 l .8 2022-08-10 2022-08-10 Refill Chioma, 1.2.840.1 114700301 057778 7076 Methodi 00:00:00 00:00:[address] B. 3.430.2.7 Hospit a .3.266991 l .8 2022-08-10 2022-08-10 Refill Chioma, 1.2.840.1 229777155 039388 0162 Methodi 00:00:00 00:00:[address] B. 3.430.2.7 Hospit a .3.513085 l .8 2022-05-13 2022-05-13 Refill [place]oma, 1.2.840.1 [id number] 686501 4660 Methodi 00:00:00 00:00:[address] B. 3.430.2.7 Hospit a .3.265206 l .8 2022-05-13 2022-05-13 Refill [place], 1.2.840.1 196210122 850381 7233 Methodi 00:00:00 00:00:[address] B. 3.430.2.7 Hospit a .3.435386 l .8 2022-05-13 2022-05-13 Refill Chioma, 1.2.840.1 843639870 919817 6052 Methodi 00:00:00 00:00:[address] B. 3.430.2.7 Hospit a .3.545863 l .8 2022-05-13 2022-05-13 Refill Chioma, 1.2.840.1 703226942 981383 5039 Methodi 00:00:00 00:00:[address] B. 3.430.2.7 Hospit a .3.854721 l .8 2022-03-29 2022-03-29 [facility] [place] 1.2.840.1 [id number] 21 [id number] Methodi 13:30:00 14:00:00 Visit Teena 88787.1.[address] 3.430.2.7 Hospit a .3.302342 l .8 2022-03-28 2022-03-28 Office Barby, 1.2.840.1 [id number] 21 [id number] Methodi 11:30:00 12:05:23 Visit Aleta Flynn 81702.1.[address] 3.430.2.7 Hospit a .3.399509 l .8 2022-03-28 2022-03-28 Travel 1.2.840.1 1.2.022.162 9888 174352 Methodi 00:00:00 00:00:[address] 3.430.2.7 0.2.7.3.698 Ho spita .3.710707 084.8 l .8 2022-03-11 2022-03-11 Travel 1.2.840.1 1.2.398.487 8520 712305 Methodi 00:00:00 00:00:[address] 3.430.2.7 0.2.7.3.698 Ho spita .3.960621 084.8 l .8 2022-03-01 2022-03-01 Office Muna Rader 1.2.840.1 [id number] 21 [id number] Methodi 11:00:00 11:30:00 Visit Teena 35883.1.[address] 3.430.2.7 Hospit a .3.100812 l .8 2022-03-01 2022-03-01 Travel 1.2.840.1 1.2.920.968 4116 956229 Methodi 00:00:00 00:00:[address] 3.430.2.7 0.2.7.3.698 Ho spita .3.807090 084.8 l .8 2022-02-21 2022-02-21 Refill Chioma, 1.2.840.1 388998407 544317 7126 Methodi 00:00:00 00:00:[address] B. 3.430.2.7 Hospit a .3.412576 l .8 2022-02-07 2022-02-07 Office Chioma, 1.2.840.1 [id number] 653476 2152 Methodi 12:00:00 12:50:26 Visit She 14570.1.[address] B. 3.430.2.7 Hospit a .3.248820 l .8 2022-02-07 2022-02-07 Travel 1.2.840.1 1.2.837.595 5991 369765 Methodi 00:00:00 00:00:[address] 3.430.2.7 0.2.7.3.698 Ho spita .3.304981 084.8 l .8 2022-02-05 2022-02-05 Talya Almanza 1.2.840.1 [id number] 99499402 Methodi 00:00:00 00:00:[address] 3.430.2.7 Hospit a .3.759867 l .8 2022-01-29 2022-01-29 Travel 1.2.840.1 1.2.070.045 2130 576539 Methodi 00:00:00 00:00:[address] 3.430.2.7 0.2.7.3.698 Ho spita .3.368165 084.8 l .8 2022-01-11 2022-01-11 Sherron Anthony, 1.2.840.1 [id number] 689079 2145 Methodi 00:00:00 00:00:00 Only She 06890.1.[address] B. 3.430.2.7 Hospit a .3.658221 l .8 2022-01-11 2022-01-11 Orders Chioma, 1.2.840.1 [id number] 481781 7073 Methodi 00:00:00 00:00:00 Only She 75525.1.[address] B. 3.430.2.7 Hospit a .3.409723 l .8 2022-01-08 2022-01-08 Telephone Chioma, 1.2.840.1 [id number] 2099 743032 Methodi 00:00:00 00:00:[address] B. 3.430.2.7 Hospit a .3.268254 l .8 2021-12-18 2021-12-18 Outpatient R [facility] [id number] [facility] 09:57:47 23:59:00 RENNY ity of [facility] 2021-12-18 2021-12-18 [facility] Willy, [facility] 1.2.840.114 [id number] [id number] Univers 09:45:00 23:59:00 Encounter Renny IGOR 350.1.13.10 ity of [place] 4.2.7.2.686 [facility] [phone] [facility] [address] 2021-12-18 2021-12-18 Orders Doctor JOSE ARMANDO 1.2.840.114 [id number] Univers 00:00:00 00:00:00 Only Unassigned, CAIN 350.1.13.10 ity of [place] [facility] 4.2.7.2.686 [facility] [phone] [facility] [address] 2021-11-14 2021-11-14 Telephone Chioma, 1.2.840.1 [id number] 2099 452390 Methodi 00:00:00 00:00:[address] B. 3.430.2.7 Hospit a .3.516957 l .8 2021-11-10 2021-11-10 Refeldon Saunders, 1.2.840.1 [id number] 038299 8012 Methodi 00:00:00 00:00:[address] 3.430.2.7 Hospit a .3.773658 l .8 2021-11-08 2021-11-08 Outpatient JAMES Anthony [facility] [id number] [address] [facility] 08:00:00 08:00:00 She [facility] 2021-11-02 2021-11-02 Refill Chip, 1.2.840.1 [id number] 223152 5744 Methodi 00:00:00 00:00:[address] 3.430.2.7 Hospit a .3.097153 l .8 2021-10-31 2021-10-31 Office ChiomaShe 1.2.840.1 1040 73952 5782102133 Methodi 09:00:00 09:49:14 Visit Clarke Jerrell Lan 34954.1.[address] 3.430.2.7 Hospit a .3.059810 l .8 2021-10-31 2021-10-31 Travel 1.2.840.1 1.2.538.439 4241 422414 Methodi 00:00:00 00:00:[address] 3.430.2.7 0.2.7.3.698 Ho spita .3.052359 084.8 l .8 2021-10-30 2021-10-30 Refill Chip, 1.2.840.1 [id number] 271409 5943 Methodi 00:00:00 00:00:[address] 3.430.2.7 Hospit a .3.238369 l .8 2021-10-21 2021-10-21 Refill Chip, 1.2.840.1 652092621 921949 2941 Methodi 00:00:00 00:00:[address] 3.430.2.7 Hospit a .3.924104 l .8 2021-10-20 2021-10-20 Refill Chioma, 1.2.840.1 166294467 236058 7176 Methodi 00:00:00 00:00:[address] B. 3.430.2.7 Hospit a .3.660611 l .8 2021-10-03 2021-10-03 Travel 1.2.840.1 1.2.678.588 8423 981634 Methodi 00:00:00 00:00:[address] 3.430.2.7 0.2.7.3.698 Ho spita .3.185375 084.8 l .8 2021-10-02 2021-10-02 Refill Raul, 1.2.840.1 593398269 049357 4130 Methodi 00:00:00 00:00:[address] 3.430.2.7 Hospit a .3.959828 l .8 2021-10-01 2021-10-01 Kerrie Anthony, 1.2.840.1 [id number] Methodi 00:00:00 00:00:[address] B. 3.430.2.7 Hospit a .3.829636 l .8 2021-09-27 2021-09-27 Refeldon Anthony, 1.2.840.1 [id number] Methodi 00:00:00 00:00:[address] B. 3.430.2.7 Hospit a .3.446817 l .8 2021-09-27 2021-09-27 Refeldon Saunders, 1.2.840.1 [id number] 495142 3980 Methodi 00:00:00 00:00:[address] 3.430.2.7 Hospit a .3.427849 l .8 2021-09-27 2021-09-27 External Yordy, 1.2.840.1 [id number] 2099138 Methodi 00:00:00 00:00:00 Home Sumaya 97741.1.[address] Health 3.430.2.7 Hospit a .3.220227 l .8 2021-09-19 2021-09-19 Office Chip, 1.2.840.1 835009948 653641 0037 Methodi 09:00:00 09:35:13 Visit Apolonia 49234.1.[address] 3.430.2.7 Hospit a .3.637386 l .8 2021-09-19 2021-09-19 Travel 1.2.840.1 1.2.763.071 6261 931812 Methodi 00:00:00 00:00:[address] 3.430.2.7 0.2.7.3.698 Ho spita .3.050346 084.8 l .8 2021-09-06 2021-09-06 Office Barby, 1.2.840.1 [id number] Methodi 10:00:00 10:37:21 Visit Aleta Flynn 61575.1.[address] 3.430.2.7 Hospit a .3.430121 l .8 2021-09-06 2021-09-06 Travel 1.2.840.1 1.2.317.795 0194 882739 Methodi 00:00:00 00:00:[address] 3.430.2.7 0.2.7.3.698 Ho spita .3.381888 084.8 l .8 2021-09-01 2021-09-01 Refill Chip, 1.2.840.1 [id number] 014987 4722 Methodi 00:00:00 00:00:[address] 3.430.2.7 Hospit a .3.164482 l .8 2021-09-01 2021-09-01 Noel Anthony 1.2.840.1 [id number] 089848 2316 Methodi 00:00:00 00:00:[address] B. 3.430.2.7 Hospit a .3.490143 l .8 2021-08-27 2021-08-27 Office Chioma, 1.2.840.1 [id number] 249739 3185 Methodi 14:15:00 14:45:20 Visit She 68127.1.[address] B. 3.430.2.7 Hospit a .3.043064 l .8 2021-08-27 2021-08-27 Travel 1.2.840.1 1.2.220.598 0586 559681 Methodi 00:00:00 00:00:[address] 3.430.2.7 0.2.7.3.698 Ho spita .3.323579 084.8 l .8 2021-08-24 2021-08-24 Patient Jorge, 1.2.840.1 [id number] 765 1031381 Methodi 00:00:00 00:00:00 Outreach Nelida 31661.1.[address] 3.430.2.7 Hospit a .3.413028 l .8 2021-08-22 2021-08-22 Transcribe Barby, 1.2.840.1 [id number] Methodi 00:00:00 00:00:00 Sherron Flynn 63555.1.[address] 3.430.2.7 Hospit a .3.674365 l .8 2021-08-22 2021-08-22 Telephone Chioma, 1.2.840.1 640480189 2100 626734 Methodi 00:00:00 00:00:[address] B. 3.430.2.7 Hospit a .3.801916 l .8 2021-08-10 2021-08-10 External Yordy, 1.2.840.1 764208101 2100 568104 Methodi 00:00:00 00:00:00 Home Sumaya 25012.1.[address] Health 3.430.2.7 Hospit a .3.029101 l .8 2021-08-07 2021-08-07 Refeldon Saunders, 1.2.840.1 [id number] 118088 8060 Methodi 00:00:00 00:00:[address] 3.430.2.7 Hospit a .3.172109 l .8 2021-08-02 2021-08-02 Office Chioma, 1.2.840.1 397801727 341425 7854 Methodi 09:00:00 10:02:34 Visit She 70296.1.[address] B. 3.430.2.7 Hospit a .3.075397 l .8 2021-08-02 2021-08-02 Travel 1.2.840.1 1.2.944.072 9439 605587 Methodi 00:00:00 00:00:[address] 3.430.2.7 0.2.7.3.698 Ho spita .3.158407 084.8 l .8 2021-07-26 2021-07-26 Telephone Chioma, 1.2.840.1 [id number] 2099 283147 Methodi 00:00:00 00:00:[address] B. 3.430.2.7 Hospit a .3.504930 l .8 2021-07-16 2021-07-16 Patient Adam, 1.2.840.1 734750310 48628 58634 Methodi 00:00:00 00:00:00 Outreach Sienna 16614.1.[address] 3.430.2.7 Hospit a .3.574503 l .8 2021-06-22 2021-06-22 Refill Chip, 1.2.840.1 203868803 227463 4235 Methodi 00:00:00 00:00:[address] 3.430.2.7 Hospit a .3.629191 l .8 2021-06-20 2021-06-20 Telephone Chioma, 1.2.840.1 [id number] 2099 713359 Methodi 00:00:00 00:00:[address] B. 3.430.2.7 Hospit a .3.257380 l .8 2021-06-15 2021-06-15 Refill Chip, 1.2.840.1 441946873 990071 8094 Methodi 00:00:00 00:00:[address] 3.430.2.7 Hospit a .3.794437 l .8 2021-06-15 2021-06-15 Refill Chioma, 1.2.840.1 076231937 875742 0567 Methodi 00:00:00 00:00:[address] B. 3.430.2.7 Hospit a .3.757898 l .8 2021-06-13 2021-06-13 Refill Chioma, 1.2.840.1 310328657 182168 0625 Methodi 00:00:00 00:00:[address] B. 3.430.2.7 Hospit a .3.269119 l .8 2021-06-01 2021-06-01 Refill Chioma, 1.2.840.1 638300366 410061 2328 Methodi 00:00:00 00:00:[address] B. 3.430.2.7 Hospit a .3.520256 l .8 2021-05-31 2021-05-31 Office Chip, 1.2.840.1 809268157 756353 6829 Methodi 09:00:00 09:58:58 Visit [place] 99289.1.[address] 3.430.2.7 Hospit a .3.427693 l .8 2021-05-31 2021-05-31 Travel 1.2.840.1 1.2.798.572 8548 932077 Methodi 00:00:00 00:00:[address] 3.430.2.7 0.2.7.3.698 Ho spita .3.939137 084.8 l .8 2021-05-29 2021-05-29 Refill Chioma, 1.2.840.1 446056440 778404 9576 Methodi 00:00:00 00:00:[address] B. 3.430.2.7 Hospit a .3.340503 l .8 2021-05-28 2021-05-28 Refill Chioma, 1.2.840.1 683517717 683680 6821 Methodi 00:00:00 00:00:[address] B. 3.430.2.7 Hospit a .3.555927 l .8 2021-05-14 2021-05-14 Refill Chip, 1.2.840.1 299934919 212328 1278 Methodi 00:00:00 00:00:[address] 3.430.2.7 Hospit a .3.941255 l .8 2021-04-27 2021-04-27 Office Dimitris Espinosa 1.2.840.1 783175734 999 [id number] Methodi 09:30:00 09:52:47 Visit Joe 86618.1.[address] 3.430.2.7 Hospit a .3.619571 l .8 2021-04-27 2021-04-27 Office Juanito, 1.2.840.1 018993508 483123 3237 Methodi 09:00:00 09:52:41 Visit Estela 00433.1.[address] 3.430.2.7 Hospit a .3.207235 l .8 2021-04-27 2021-04-27 Travel 1.2.840.1 1.2.428.124 0667 [id number] Methodi 00:00:00 00:00:[address] 3.430.2.7 0.2.7.3.698 Ho spita .3.064679 084.8 l .8 2021-04-24 2021-04-24 Travel 1.2.840.1 1.2.270.519 2863 313358 Methodi 00:00:00 00:00:[address] 3.430.2.7 0.2.7.3.698 Ho spita .3.273236 084.8 l .8 2021-04-19 2021-04-19 Office [place], 1.2.840.1 [id number] 1663 Methodi 07:45:00 08:38:51 Visit She 89916.1.[address] B. 3.430.2.7 Hospit a .3.863161 l .8 2021-04-19 2021-04-19 Travel 1.2.840.1 1.2.057.293 2150 965354 Methodi 00:00:00 00:00:[address] 3.430.2.7 0.2.7.3.698 Ho spita .3.918983 084.8 l .8 2021-03-30 2021-03-30 Office Chip, 1.2.840.1 [id number] 6294 Methodi 09:13:25 10:48:44 Visit Apolonia 70639.1.[address] 3.430.2.7 Hospit a .3.406063 l .8 2021-03-30 2021-03-30 Travel 1.2.840.1 1.2.316.564 5563 696587 Methodi 00:00:00 00:00:[address] 3.430.2.7 0.2.7.3.698 Ho spita .3.713083 084.8 l .8 2021-03-01 2021-03-01 Refill Chi[place], 1.2.840.1 [id number] 057022 6190 Methodi 00:00:00 00:00:[address] B. 3.430.2.7 Hospit a .3.314904 l .8 2021-02-15 2021-02-15 Office She Anthony B. 1.2.840.1 1023 29749 [id number] Methodi 09:33:14 10:39:23 Visit Apolonia Saunders 07735.1.[address] 3.430.2.7 Hospit a .3.836760 l .8 2021-02-15 2021-02-15 Travel 1.2.840.1 1.2.982.019 3596 827523 Methodi 00:00:00 00:00:[address] 3.430.2.7 0.2.7.3.698 Ho spita .3.724209 084.8 l .8 2021-02-03 2021-02-03 Refill [place], 1.2.840.1 [id number] 2275 Methodi 00:00:00 00:00:[address] B. 3.430.2.7 Hospit a .3.612791 l .8 2021-01-18 2021-01-18 Office [place], 1.2.840.1 [id number] 6617 Methodi 09:40:08 10:38:30 Visit She 59435.1.[address] B. 3.430.2.7 Hospit a .3.375181 l .8 2021-01-18 2021-01-18 Travel 1.2.840.1 1.2.057.510 9939 038362 Methodi 00:00:00 00:00:[address] 3.430.2.7 0.2.7.3.698 Ho spita .3.769755 084.8 l .8 2021-01-11 2021-01-11 Travel 1.2.840.1 1.2.132.028 9377 828991 Methodi 00:00:00 00:00:[address] 3.430.2.7 0.2.7.3.698 Ho spita .3.505612 084.8 l .8 2020-12-25 2020-12-25 Telephone [place], 1.2.840.1 [id number] 2099 438014 Methodi 00:00:00 00:00:[address] B. 3.430.2.7 Hospit a .3.355778 l .8 2020-12-14 2020-12-14 Travel 1.2.840.1 1.2.027.664 8764 963647 Methodi 00:00:00 00:00:[address] 3.430.2.7 0.2.7.3.698 Ho spita .3.180164 084.8 l .8 2020-12-14 2020-12-14 Telephone Chip, 1.2.840.1 [id number] 2099 [id number] Methodi 00:00:00 00:00:[address] 3.430.2.7 Hospit a .3.521924 l .8 2020-12-13 2020-12-13 Telephone Talya Johnson 1.2.840.1 [id number] Methodi 00:00:00 00:00:[address] 3.430.2.7 Hospit a .3.044292 l .8 2020-12-12 2020-12-12 Refill [place], 1.2.840.1 [id number] 233575 6078 Methodi 00:00:00 00:00:[address] B. 3.430.2.7 Hospit a .3.141163 l .8 2020-11-27 2020-11-27 Refill [place], 1.2.840.1 [id number] 4060 Methodi 00:00:00 00:00:[address] B. 3.430.2.7 Hospit a .3.055104 l .8 2020-11-19 2020-11-19 Refill [place], 1.2.840.1 [id number] 693756 3756 Methodi 00:00:00 00:00:[address] B. 3.430.2.7 Hospit a .3.947415 l .8 2020-11-02 2020-11-02 Refill [place], 1.2.840.1 [id number] 8989 Methodi 00:00:00 00:00:[address] B. 3.430.2.7 Hospit a .3.788525 l .8 2020-10-12 2020-10-12 Office [place], 1.2.840.1 [id number] 6718 Methodi 08:21:01 09:03:14 Visit She 71640.1.[address] B. 3.430.2.7 Hospit a .3.168825 l .8 2020-10-12 2020-10-12 Travel 1.2.840.1 1.2.811.005 7292 [id number] Methodi 00:00:00 00:00:[address] 3.430.2.7 0.2.7.3.698 Ho spita .3.444542 084.8 l .8 2020-10-05 2020-10-05 Outpatient JAMES Meade, [facility] [id number] [facility] 11:41:22 11:41:[address] [place] [address] 2020-09-29 2020-10-02 Office Be, 1.2.840.1 [id number] 5363 Methodi 09:00:12 08:32:11 Visit Jaret Watts 28130.1.1 [address] t 3.430.2.7 Hospit a .3.147493 l .8 2020-09-29 2020-09-29 Travel 1.2.840.1 1.2.009.345 7198 782097 Methodi 00:00:00 00:00:[address] 3.430.2.7 0.2.7.3.698 Ho spita .3.270612 084.8 l .8 2020-09-22 2020-09-22 [facility], 1.2.840.1 [id number] 61231 Methodi 09:06:41 23:59:00 Encounter Jaret Watts 47977.1.[address] 3.430.2.7 Hospit a .3.194488 l .8 2020-09-22 2020-09-22 [facility], 1.2.840.1 [id number] 03920 95903 Methodi 09:02:43 09:05:00 Encounter Jaret Watts 12024.1.[address] 3.430.2.7 Hospit a .3.659288 l .8 2020-09-22 2020-09-22 Travel 1.2.840.1 1.2.582.787 0351 803619 Methodi 00:00:00 00:00:[address] 3.430.2.7 0.2.7.3.698 spita .3.051134 084.8 l .8 2020-09-15 2020-09-15 [facility] 1.2.840.1 [id number] 6820 Methodi 00:00:00 00:00:[address] B. 3.430.2.7 Hospit a .3.020904 l .8 2020-09-08 2020-09-08 Noel Anthony, 1.2.840.1 [id number] 6329 Methodi 00:00:00 00:00:[address] B. 3.430.2.7 Hospit a .3.065466 l .8 2020-09-07 2020-09-07 [facility], 1.2.840.1 [id number] 31421 Methodi 14:38:17 23:59:00 Encounter Jaret Watts 14023.1.[address] 3.430.2.7 Hospit a .3.185410 l .8 2020-09-07 2020-09-07 [facility], 1.2.840.1 [id number] 52834 61478 Methodi 14:38:06 23:59:00 Encounter Jaret AnLuba 28033.1.[address] 3.430.2.7 Hospit a .3.991319 l .8 2020-09-07 2020-09-07 [facility] [id number] [address] [place] [address] 00:00:00 00:00:00 JARET [address] 2020-09-07 2020-09-07 Travel 1.2.840.1 1.2.221.026 0469 [id number] Methodi 00:00:00 00:00:[address] 3.430.2.7 0.2.7.3.698 Ho spita .3.886271 084.8 l .8 2020-08-04 2020-09-01 Clinical Tg, 1.2.840.1 [id number] 28855 99070 Methodi 07:07:36 13:47:58 Support Edwin 35337.1.[address] P. 3.430.2.7 Hospit a .3.144726 l .8 2020-09-01 2020-09-01 [place] 79869.2.840.1 [id number] 6860 Methodi 09:27:33 10:10:52 Visit Jaret Mac 45060.1.1 978 s t 3.430.2.7 Hospit a .3.072955 l .8 2020-09-01 2020-09-01 Travel 1.2.840.1 1.2.088.489 4956 054468 Methodi 00:00:00 00:00:[address] 3.430.2.7 0.2.7.3.698 Ho spita .3.297222 084.8 l .8 2020-08-28 2020-08-28 Sherron Anthony, 1.2.840.1 [id number] 4872 Methodi 00:00:00 00:00:00 Only She 34188.1.[address] B. 3.430.2.7 Hospit a .3.123219 l .8 2020-08-24 2020-08-24 Refeldon Anthony, 1.2.840.1 [id number] 2547 Methodi 00:00:00 00:00:[address] B. 3.430.2.7 Hospit a .3.062520 l .8 2020-08-04 2020-08-04 Refeldon Anthony, 1.2.840.1 [id number] 1149 Methodi 00:00:00 00:00:[address] B. 3.430.2.7 Hospit a .3.045011 l .8 2020-07-14 2020-07-14 Outpatient [facility] [id number] 799 [place] 00:00:00 00:00:[address] 2020-06-30 2020-06-30 Outpatient BE, [facility] [id number] 620 [place] 00:00:00 00:00:00 JARET [address] 2020-06-22 2020-06-22 Outpatient RILEY, [facility] [id number] [place] 00:00:00 00:00:00 DONTAE [address] 2020-06-08 2020-06-08 Outpatient CHIOMA, [facility] [id number] 663 [place] 00:00:00 00:00:00 SHE [address] 2020-06-02 2020-06-02 Outpatient BE, [facility] [id number] 460 [place] 00:00:00 00:00:00 JARET [address] 2020-05-17 2020-05-17 Outpatient RILEY, [facility] [id number] 7138 [place] 00:00:00 00:00:00 DONTEA [address] 2020-04-28 2020-04-28 Outpatient BE, [facility] [id number] 991 [place] 00:00:00 00:00:00 JARET [address] 2020-04-28 2020-04-28 Outpatient BE, [facility] [id number] 460 [place] 00:00:00 00:00:00 JARET [address] 2020-04-20 2020-04-20 Outpatient BE, [facility] [id number] 178 [place] 00:00:00 00:00:00 JARET [address] 2020-03-10 2020-03-10 Outpatient BE, [facility] [id number] 549 [place] 00:00:00 00:00:00 JARET [address] 2020-03-10 2020-03-10 Outpatient CHIOMA, [facility] [id number] 739 [place] 00:00:00 00:00:00 SHE [address] 2020-02-24 2020-02-24 Outpatient CHIOMA, [facility] [id number] 910 [place] 00:00:00 00:00:00 SHE [address] 2020-02-18 2020-02-18 Outpatient CHIOMA, [facility] [id number] 276 [place] 00:00:00 00:00:00 SHE [address] 2020-02-11 2020-02-11 Outpatient CHIOMA, [facility] [id number] 276 [place] 00:00:00 00:00:00 SHE [address] 2020-02-04 2020-02-04 Outpatient CHIOMA, [facility] [id number] 276 [place] 00:00:00 00:00:00 SHE [address] 2020-01-28 2020-01-28 Outpatient CHIOMA, [facility] [id number] 720 [place] 00:00:00 00:00:00 SHE [address] 2019-12-29 2019-12-29 Outpatient CHIOMA, [facility] [id number] 597 [place] 00:00:00 00:00:00 SHE [address] 2019-11-10 2019-11-10 Outpatient CHIOMA, [facility] [id number] 645 [place] 00:00:00 00:00:00 SHE [address] 2019-09-27 2019-09-28 Outpatient CHIOMA, [facility] [id number] 328 [place] 00:00:00 00:00:00 SHE [address] 2019-08-20 2019-08-20 Outpatient Halina, [facility] [id number] [facility] 12:00:00 12:00:00 Monica 30 [facility] 2019-08-12 2019-08-12 Outpatient CHIOMA, [facility] [id number] 722 [place] 00:00:00 00:00:00 SHE lopez 2016-09-06 2016-09-07 Outpt Diag nullFlavo [facility] [id number] Memoria 18:47:00 04:59:00 Services r Outpatient 08 l Imaging [facility] [place] 2016-08-17 2016-08-18 Outpt Diag nullFlavo [facility] [id number] Memoria 17:00:00 05:59:00 Services r Outpatient 07 l Imaging [facility] [place] 2014-12-16 2014-12-17 Outpt Diag nullFlavo [facility] [id number] Memoria 20:02:00 04:59:00 Services r Outpatient 06 l Imaging [facility] [place] 2013-12-16 2013-12-17 Outpt Diag nullFlavo [facility] [id number] Memoria 19:36:00 04:59:00 Services r Outpatient 05 l Imaging Fawad [place] 2013-12-14 2013-12-15 Outpt Diag nullFlavo [facility] [id number] Memoria 21:14:00 04:59:00 Services r Outpatient 04 l Imaging Fawad [place] 2011-05-28 2011-05-28 OD ERASMO [facility] [id number] Memoria 14:13:00 14:13:00 00 [facility] Results Test Description Test Time Test Comments Results Result Comments Source Comprehensive metabolic panel 2022-08-23 07:26:00 Test Item Value Reference Range Interpretation Comme nts Glucose (test code = 203 mg/dL 65-99 H Fastin g reference 2345-7) interval For so meone without known d iabetes, a glucosevalue >125 mg/dL indicates that they may havedi abetes and this should be confirmed with afollow-up test . BUN (test code = 3094-0) 21 mg/dL 7-25 Creatinine (test code = 0.80 mg/dL 0.60-1.00 2160-0) eGFR (test code = 78 See_Comment [place] [address]-0) the CKD-EPI 202 1 equation. To ca lculate the new eGFR fr om a previous Creati nine or Cystatin Cresul t, go to https://www.kid xochitl.org/ professionals/k doqi/gfr %5Fcalculator [Automated mess age] The system which ge nerated this result tra nsmitted reference range : > OR = 60 mL/min/1.73m 2. The reference range was not used to interpr et this result as normal/abnormal . BUN/creatinine ratio NOT APPLICABLE See_Comment [Aut omated message] (test code = 3097-3) The [employer] tem which generated this result transmitted ref erence range: 6 - 22 ( calc). The reference r nighat was not used to int erpret this result as normal/abnormal . Sodium (test code = 139 mmol/L 905-100 9637-2) Potassium (test code = 4.3 mmol/L 3.5-5.3 2823-3) Chloride (test code = 101 mmol/L 98-110 2075-0) CO2 (test code = 8-9) 25 mmol/L 20-32 Calcium (test code = 10.1 mg/dL 8.6-10.4 08350-2) Protein (test code = 6.8 g/dL 6.1-8.1 2885-2) Albumin, S (test code = 4.8 g/dL 3.6-5.1 1751-7) Globulin, total (test 2.0 See_Comment [Auto mated message] code = 67936-7) The system [employer] generated this result transmitted ref erence range: 1.9 - 3. 7 g/dL (calc). The ref erence range was not u sed to interpret this result as normal/abnor mal. Albumin/globulin ratio 2.4 See_Comment [Aut omated message] (test code = 1759-0) The [employer] which generated this result transmitted ref erence range: 1.0 - 2. 5 (calc). The ref erence range was not u sed to interpret this result as normal/abnor mal. Total bilirubin (test 0.7 mg/dL 0.2-1.2 code = 1975-2) Alkaline phosphatase 59 U/L 37-153 (test code = 6768-6) AST (test code = 1920-8) 14 U/L 10-35 ALT (test code = 1742-6) 15 U/L 6-29 RANDA (test code = RANDA) PATIENT UNABLE TO VOID; ADVISED TO RETURN FOR COLLECTION. RAC (test code = RAC) Performing Organization Information: Site ID: KALA Name: [facility] Address: [address] [place] [id number] Director: Alvin Valladares Lab Interpretation (test Abnormal code = 86625-6) [facility] [id number] 07:26:00 Test Item Value Reference Interpretation Comments Range Cholesterol, total 155 mg/dL <=200 (test code = 2093-3) HDL cholesterol 37 mg/dL See_Comment L [Automated (test code = 2085-9) message ] The system which generated this result transmitted reference range : > OR = 50. The reference range was not used to interpret this result as normal/abnormal . Triglycerides (test 296 mg/dL <=150 H If a no n-fasting code = 2571-8) specimen was collected, considerrepeat triglyceride testing on a fasting specime nif clinically indicated. Jorge mae et al. J. of Cl in. Lipidol. 2015;9:129-169. LDL cholesterol 82 mg/dL (calc) Reference ra nge: calculated (test <100 Desira ble code = 56222-4) range <100 m g/dL for primary prevention; <70 mg/dL for patie nts with CHD or diabetic patien ts with > or = 2 C HD risk factors. L DL-C is now calculat ed using the Vicente-Gonzalez calculation, wh ich is a validated novel method providing ruby r accuracy than t he Friedewald equa tion in the estimati on of LDL-C. Rahel n SS et al. REGINE. 2013;310(19): 0694-3485 (http://educati on.MDconnectME .com /faq/SNR141) Cholesterol/HDL 4.2 See_Comment [Automated ratio (test code = message] The system 9830-1) which generated this result transmitted reference range : <5.0 (calc). Th e reference range was not used to interpret this result as normal/abnormal . Non-HDL cholesterol 118 See_Comment For silke ents with (test code = diabetes plus 1 56921-2) major ASCVD ris k factor, treatin g to a non-HDL-C goa l of <100 mg/dL (LDL -C of <70 mg/dL) i s considered a therapeutic opt ion. [Automated mess age] The system [employer] generated this result transmit thalia reference range : <130 mg/dL (sergio c). The reference r nighat was not used to interpret this result as normal/abnormal . RANDA (test code = PATIENT UNABLE TO RANDA) VOID; ADVISED TO RETURN FOR COLLECTION. RAC (test code = Performing RAC) Organization Information: Site ID: RGA Name: [facility] Address: [address] [place] [phone] Director: Alvin Valladares Lab Interpretation Abnormal (test code = 75350-8) [facility] [id number] 07:26:00 Test Item Value Reference Interpretation Comments Range Hemoglobin A1C (test 9.6 See_Comment H For pablito eone without code = 4548-4) known diabete s, a hemoglobin A1cv alue of 6.5% or grea ter indicates that they may have diabet es and this should be confirmed with a follow-up test. For someone with kn own diabetes, a real ue <7% indicates t hat their diabetes is well controlled and a value greater than or equal t o 7% indicates suboptimal cont rol. A1c targets caitlin uld be individualiz ed based on durati on of diabetes, ag e, comorbid conditions, and other considerations. Currently, no consensus exist s regarding use ofhemoglobin A1 c for diagnosis o f diabetes for children. [Automated mess age] The system [employer] generated this result transmit thalia reference range : <5.7 % of total Hgb. The refere nce range was not u sed to interpret th is result as normal/abnormal . RANDA (test code = PATIENT UNABLE TO RANDA) VOID; ADVISED TO RETURN FOR COLLECTION. RAC (test code = Performing RAC) Organization Information: Site ID: RGA Name: [facility] Address: [address] [place] [id number] Director: Alvin Valladares Lab Interpretation Abnormal (test code = 20074-0) [facility] [id number] 18:32:08 Test Item Value Reference Range Interpretation Comments POC glucose (test code = 2634112) 65-100 [facility] [id number] 18:32:08 Test Item Value Reference Range Interpretation Comments POC glucose (test code = 2861971) 184 65-100 [facility] [id number] 19:15:00 Test Item Value Reference Range Interpretation Comments Glucose (test code = 244 mg/dL 65-99 H Fastin g 2345-7) reference interval For someone without known diabetes, a glucosevalue >1 25 mg/dL indicates that they may havediabetes an d this should be confirmed with afollow-up test . BUN (test code = 20 mg/dL 01-07 3094-0) Creatinine (test 0.75 mg/dL 0.60-1.00 code = 2160-0) eGFR (test code = See_Comment The eGFR i s based 8257) on the CKD-EPI 2020 equation. To calculate the n ew eGFR from a previous Creatinine or Cystatin Cresul t, go to https://www.kid ne y.org/profjacquelin hollingsworth/kdoqi/gfr%5F ca lculator [Automated message] The system which generated this result transmitted reference range : > OR = 60 mL/min/1.73m2. The reference range was not used to interpr et this result as normal/abnormal . BUN/creatinine ratio NOT APPLICABLE See_Comment [Aut omated (test code = 3097-3) message ] The system which generated this result transmitted reference range : 6 - 22 (calc). The reference range was not used to interpr et this result as normal/abnormal . Sodium (test code = 143 mmol/L 900-961 3886-2) Potassium (test code 4.1 mmol/L 3.5-5.3 = 2823-3) Chloride (test code 100 mmol/L 98-110 = 2075-0) CO2 (test code = 34 mmol/L 20-32 H 2027-) Calcium (test code = 9.9 mg/dL 8.6-10.4 62938-8) Protein (test code = 6.6 g/dL 6.1-8.1 2885-2) Albumin, S (test 4.4 g/dL 3.6-5.1 code = 1751-7) Globulin, total See_Comment [Automated (test code = message] The 54141-8) system which generated this result transmitted reference range : 1.9 - 3.7 g/dL (calc). The reference range was not used to interpret this result as normal/abnormal . Albumin/globulin See_Comment [Automated ratio (test code = message] The 175-0) system which generated this result transmitted reference range : 1.0 - 2.5 (calc ). The reference range was not used to interpr et this result as normal/abnormal . Total bilirubin 0.6 mg/dL 0.2-1.2 (test code = 1974-2) Alkaline phosphatase 56 U/L 37-153 (test code = 6768-6) AST (test code = 23 U/L 10-35 1919-8) ALT (test code = 15 U/L 12-12-6) RANDA (test code = FASTING:UNKNOWN RANDA) FASTING: UNKNOWN RAC (test code = Performing RAC) Organization Information: Site ID: RGA [facility]: [facility] Address: [address] [place] [id number] Director: Alvin Valladares Lab Interpretation Abnormal (test code = 20487-3) [facility] [id number] 19:15:00 Test Item Value Reference Interpretation Comments Range Cholesterol, total 159 mg/dL See_Comment [Automat ed (test code = 2093-3) message ] The system which generated this result transmitted reference range : <=200. The reference range was not used to interpret this result as normal/abnormal . HDL cholesterol 51 mg/dL See_Comment [Automated (test code = 2085-9) message ] The system which generated this result transmitted reference range : > OR = 50. The reference range was not used to interpret this result as normal/abnormal . Triglycerides (test 295 mg/dL See_Comment H If a no n-fasting code = 2571-8) specimen was collected, considerrepeat triglyceride testing on a fasting specime nif clinically indicated. Jorge pastor al. J. of Cl in. Lipidol. 2015;9:129-169. [Automated mess age] The system ic h generated this result transmit thalia reference range : <=150. The reference range was not used to interpret this result as normal/abnormal . LDL cholesterol mg/dL (calc) Reference ra nge: calculated (test <100 Desira ble code = 27941-7) range <100 m g/dL for primary prevention; <70 mg/dL for patie nts with CHD or diabetic patien ts with > or = 2 C HD risk factors. L DL-C is now calculat ed using the Vicente-Gonzalez calculation, wh ich is a validated novel method providing ruby r accuracy than t he Friedewald equa tion in the estimati on of LDL-C. Rahel n SS et al. REGINE. 2013;310(19): 6675-3019 (http://educati on.MDconnectME .OptiWi-fi /faq/DRP118) Cholesterol/HDL See_Comment [Automated ratio (test code = message] The system 9830-1) which generated this result transmitted reference range : <5.0 (calc). Th e reference range was not used to interpret this result as normal/abnormal . Non-HDL cholesterol See_Comment For silke ents with (test code = diabetes plus 1 79344-4) major ASCVD ris k factor, treatin g to a non-HDL-C goa l of <100 mg/dL (LDL -C of <70 mg/dL) i s considered a therapeutic opt ion. [Automated mess age] The system whic h generated this result transmit thalia reference range : <130 mg/dL (sergio c). The reference r nighat was not used to interpret this result as normal/abnormal . RANDA (test code = FASTING:UNKNOWN RANDA) FASTING: UNKNOWN RAC (test code = Performing RAC) Organization Information: Site ID: RGA [facility] Address: [address] [place] [phone] Director: Alvin Valladares Lab Interpretation Abnormal (test code = 58642-6) [facility] [id number] 19:15:00 Test Item Value Reference Interpretation Comments Range Hemoglobin A1C (test See_Comment H For pablito eocarlitos without code = 4548-4) known diabete s, a hemoglobin A1cv alue of 6.5% or grea ter indicates that they may have diabet es and this should be confirmed with a follow-up test. For someone with kn own diabetes, a real ue <7% indicates t hat their diabetes is well controlled and a value greater than or equal t o 7% indicates suboptimal cont rol. A1c targets caitlin uld be individualiz ed based on durati on of diabetes, ag e, comorbid conditions, and other considerations. Currently, no consensus exist s regarding use ofhemoglobin A1 c for diagnosis o f diabetes for children. [Automated mess age] The system [employer] generated this result transmit thalia reference range : <5.7 % of total Hgb. The refere nce range was not u sed to interpret th is result as normal/abnormal . RANDA (test code = FASTING:UNKNOWN RANDA) FASTING: UNKNOWN RAC (test code = Performing RAC) Organization Information: Site ID: RGA [facility] Address: [address] [place] [address] Director: Alvin Valladares Lab Interpretation Abnormal (test code = 25461-3) [facility] [id number] 19:15:00 Test Item Value Reference Range Interpretation Comments C-peptide (test 2.28 ng/mL 0.80-3.85 code = 1986-02) RANDA (test code = FASTING:UNKNOWN FASTING: RANDA) UNKNOWN RAC (test code = Performing Organization RAC) Information: Site ID: RGA [facility] Address: [address] [place] [address] Director: Alvin Valladares [facility] creatinine urine [id number] 19:15:00 Test Item Value Reference Interpretation Comments Range Creatinine, urine 33 mg/dL 20-275 (mg/dL) (test code = 2161-8) Microalbumin, urine 1.3 mg/dL See Note: Referenc e Range: (test code = Reference Range Not 84546-4) established Microalbumin/creati See_Comment H The ADA defines nine ratio (test abnormaliti es in code = 9318-7) albuminexcret ion as follows: Albumi rodolfo Category Result (mcg/mg creatin ine) Normal to Mildl y increased <30Moderately increased 30-29 9 Severely increa sed > OR = 300 The ADA recommends that at least two of threespecimens collected withi n a 3-6 month perio d beabnormal befo re considering a patient to bewi thin a diagnostic category. [Auto mated message] The sy stem which generated this result transmit thalia reference range : <30 mcg/mg creat. T he reference range was not used to interpret this result as normal/abnormal . RANDA (test code = FASTING:UNKNOWN RANDA) FASTING: UNKNOWN RAC (test code = Performing RAC) Organization Information: Site ID: [facility] Address: [address] [place] [phone] Director: Alvin Valladares Lab Interpretation Abnormal (test code = 24650-9) [facility] ResourcesXgqlcruwL-[id number] 19:15:00 Test Item Value Reference Range Interpretation Comments C-peptide (test 2.28 ng/mL 0.80-3.85 code = 1985-) RANDA (test code = FASTING:UNKNOWN FASTING: RANDA) UNKNOWN RAC (test code = Performing Organization RAC) Information: Site ID: RGA [facility] Address: [address] [place] [address] Director: Alvin Valladares [facility] creatinine urine [id number] 19:15:00 Test Item Value Reference Interpretation Comments Range Creatinine, urine 33 mg/dL 20-275 (mg/dL) (test code = 2161-8) Microalbumin, urine 1.3 mg/dL See Note: Referenc e Range: (test code = Reference Range Not 07467-7) established Microalbumin/creati 39 See_Comment H The ADA defines nine ratio (test abnormaliti es in code = 9318-7) albuminexcret ion as follows: Albumi rodolfo Category Result (mcg/mg creatin ine) Normal to Mildl y increased <30Moderately increased 30-29 9 Severely increa sed > OR = 300 The AD A recommends that at least two of threespecimens collected withi n a 3-6 month perio d beabnormal befo re considering a patient to bewi thin a diagnostic category. [Auto mated message] The sy stem which generated this result transmit thalia reference range : <30 mcg/mg creat. T he reference range was not used to interpret this result as normal/abnormal . RANDA (test code = FASTING:UNKNOWN RANDA) FASTING: UNKNOWN RAC (test code = Performing RAC) Organization Information: Site ID: A Name: [facility] Address: [address] [place] [phone] Director: Alvin Valladares Lab Interpretation Abnormal (test code = 39702-1) [facility] 12 [id number] 23:52:40 Test Item Value Reference Range Interpretation Comments Ventricular rate (test code = 253) Atrial rate (test code = 255) FL interval (test code = 266) QRSD interval (test code = 260) QT interval (test code = 264) QTC interval (test code = 265) P axis 1 (test code = 267) QRS axis 1 (test code = 268) T wave axis (test code = 270) EKG impression (test Normal sinus code = 273) rhythm-Normal ECG-In automated comparison with ECG of 02-AUG-2021 10:44,-No significant change was found- [facility], total (CPK)2021-08-03 18:17:00 Test Item Value Reference Range Interpretation Comments Creatine kinase (test 109 U/L 29-143 code = 2157-6) RAC (test code = RAC) Performing Organization Information: Site ID: [facility] Name: [facility] Address: [address] [place] [phone] Director: Alvin Valladares [facility] CenterT4, [id number] 18:17:00 Test Item Value Reference Range Interpretation Comments T4, free (test code 1.1 ng/dL 0.8-1.8 = 3024-7) RAC (test code = Performing Organization RAC) Information: Site ID: [facility]: [facility] Address: [address] [place] [phone] Director: Alvin OrellanaLancaster Municipal HospitalThyroid stimulating [id number] 18:17:00 Test Item Value Reference Range Interpretation Comments TSH (test See_Comment [Automated mes eleanor] code = The system whic h 3016-3) generated this result transmit thalia reference range : 0.40 - 4.50 mIU /L. The reference r nighat was not used to interpret this result as normal/abnormal . RAC (test Performing code = RAC) Organization Information: Site ID: RGA [facility]: [facility] Address: [address] [place] [address] Director: Alvin Valladares [facility] with platelet and [id number] 18:17:00 Test Item Value Reference Range Interpretation Comments WBC (test code = See_Comment [Automated 6690-2) message] The system which generated this result transmitted reference range : 3.8 - 10.8 Thousand/uL. Th e reference range was not used to interpret this result as normal/abnormal . RBC (test code = See_Comment [Automated 789-8) message] The system which generated this result transmitted reference range : 3.80 - 5.10 Million/uL. The reference range was not used to interpret this result as normal/abnormal . HGB (test code = 12.4 g/dL 11.7-15.5 718-7) HCT (test code = 38.5 % 35.0-45.0 4544-3) MCV (test code = 89.1 fL 80.0-100.0 787-2) MCH (test code = 28.7 pg 27.0-33.0 785-6) MCHC (test code = 32.2 g/dL 32.0-36.0 786-4) RDW (test code = 16.7 % 11.0-15.0 H 788-0) Platelet count (test See_Comment [Autom ated code = 777-3) message] The system which generated this result transmitted reference range : 140 - 400 Thousand/uL. Th e reference range was not used to interpret this result as normal/abnormal . MPV (test code = 11.8 fL 7.5-12.5 776-5) Neutrophils, See_Comment [Automated absolute (test code message] The = 751-8) system which generated this result transmitted reference range : 1,500 - 7,800 cells/uL. The reference range was not used to interpret this result as normal/abnormal . Lymphocytes, See_Comment [Automated absolute (test code message] The = 731-0) system which generated this result transmitted reference range : 850 - 3,900 cells/uL. The reference range was not used to interpret this result as normal/abnormal . Monocytes, absolute See_Comment [Automa thalia (test code = 742-7) message] The system which generated this result transmitted reference range : 200 - 950 cells/uL. The reference range was not used to interpret this result as normal/abnormal . Eosinophils, See_Comment [Automated absolute (test code message] The = 711-2) system which generated this result transmitted reference range : 15 - 500 cells/uL. The reference range was not used to interpret this result as normal/abnormal . Basophils, absolute See_Comment [Automa thalia (test code = 704-7) message] The system which generated this result transmitted reference range : 0 - 200 cells/u L. The reference range was not used to interpr et this result as normal/abnormal . Neutrophils (test 75.3 % code = 770-8) Lymphocytes (test 16.2 % code = 736-9) Monocytes (test code 5.8 % = 5905-5) Eosinophils (test 2.0 % code = 713-8) Basophils + RC (test 0.7 % code = 706-2) RAC (test code = Performing RAC) Organization Information: Site ID: RGA [facility]: [facility] Address: [address] [place] [phone] Director: Alvin Valladares Lab Interpretation Abnormal (test code = 41905-2) [facility], WITH REFLEX TO [id number] 18:17:00 Test Item Value Reference Range Interpretation Comments Color, UA (test YELLOW YELLOW code = 5778-6) Appearance (test CLEAR CLEAR code = 5767-9) Specific gravity, 1.001-1.035 urine (test code = 5811-5) pH, urine (test 5.0-8.0 code = 5803-2) Glucose, urine NEGATIVE NEGATIVE (test code = 82525-6) Bilirubin, UA NEGATIVE NEGATIVE (test code = 5770-3) Ketones, UA (test NEGATIVE NEGATIVE code = 2514-8) Occult blood, NEGATIVE NEGATIVE urine (test code = 5794-3) Protein, UA (test NEGATIVE NEGATIVE code = 25166-1) Nitrite, UA (test NEGATIVE NEGATIVE code = 5802-4) Leukocyte NEGATIVE NEGATIVE esterase, UA (test code = 5799-2) WBC, UA (test NONE SEEN See_Comment [Automated code = 5821-4) message] The system which generated this result transmit thalia reference range : < OR = 5 /HPF. Th e reference range was not used to interpret this result as normal/abnormal . RBC, UA (test NONE SEEN See_Comment [Automated code = 31489-3) message] The system which generated this result transmit thalia reference range : < OR = 2 /HPF. Th e reference range was not used to interpret this result as normal/abnormal . Squamous NONE SEEN See_Comment [Automated epithelial cells, message] T he UA (test code = system which 37925-3) generated this result transmit thalia reference range : < OR = 5 /HPF. Th e reference range was not used to interpret this result as normal/abnormal . Bacteria, UA NONE SEEN NONE SEEN /HPF (test code = 5769-5) Hyaline casts, UA NONE SEEN NONE SEEN /LPF (test code = 5796-8) Reflex (test code NO CULTURE = 630-4) INDICATED RAC (test code = Performing RAC) Organization Information: Site ID: RGA [facility]: [facility] Address: [address] [place] [phone] Director: Alvin Valladares [facility] CenterCom[facility] metabolic [id number] 07:48:00 Test Item Value Reference Interpretation Comments Range Glucose (test code 232 mg/dL 65-139 H Non-fast ing = 2345-7) reference inter real BUN (test code = 15 mg/dL 7-25 3094-0) Creatinine (test 0.81 mg/dL 0.60-0.93 For patient s >49 code = 2160-0) years of age, the reference limit for Creatinine is approximately 1 3% higher for peopleidentifie d as -Akosua n. EGFR Non-Afr. See_Comment [Automated me ssage] [place] (test code The syst em which = 2450) generated this result transmit thalia reference range : > OR = 60 mL/min/1.73m2. The reference range was not used to interpret this result as normal/abnormal . EGFR See_Comment [Automated mes eleanor] [place] (test code The syst em which = 3864) generated this result transmit thalia reference range : > OR = 60 mL/min/1.73m2. The reference range was not used to interpret this result as normal/abnormal . BUN/creatinine NOT APPLICABLE See_Comment [Automated message] ratio (test code = [employer] m which 3097-3) generated this result transmit thalia reference range : 6 - 22 (calc). The reference range was not used to interpret this result as normal/abnormal . Sodium (test code = 140 mmol/L 210-907 9471-2) Potassium (test 3.9 mmol/L 3.5-5.3 code = 2823-3) Chloride (test code 100 mmol/L 98-110 = 2075-0) CO2 (test code = 32 mmol/L 20-32 8-9) Calcium (test code 9.8 mg/dL 8.6-10.4 = 55725-4) Protein (test code 6.5 g/dL 6.1-8.1 = 2885-2) Albumin, S (test 4.5 g/dL 3.6-5.1 code = 1751-7) Globulin, total See_Comment [Automated message] (test code = The [place] Tizaro[place] h 90107-4) generated this result transmit thalia reference range : 1.9 - 3.7 g/dL (sergio c). The reference r nighat was not used to interpret this result as normal/abnormal . Albumin/globulin See_Comment [Automated message] ratio (test code = [employer] which 1759-0) generated this result transmit thalia reference range : 1.0 - 2.5 (calc). T he reference range was not used to interpret this result as normal/abnormal . Total bilirubin 0.5 mg/dL 0.2-1.2 (test code = 1975-2) Alkaline 53 U/L 37-153 phosphatase (test code = 6768-6) AST (test code = 11 U/L 10-35 1920-8) ALT (test code = 10 U/L 6-29 1742-6) RANDA (test code = FASTING:NO RANDA) FASTING: NO RAC (test code = Performing RAC) Organization Information: Site ID: RGA Name: [facility] Address: [address] [place] [address] Director: Alvin Valladares Lab Interpretation Abnormal (test code = 65023-9) [facility] with platelet and [id number] 07:48:00 Test Item Value Reference Range Interpretation Comments WBC (test code = See_Comment [Automated 6690-2) message] The system which generated this result transmitted reference range : 3.8 - 10.8 Thousand/uL. Th e reference range was not used to interpret this result as normal/abnormal . RBC (test code = See_Comment [Automated 789-8) message] The system which generated this result transmitted reference range : 3.80 - 5.10 Million/uL. The reference range was not used to interpret this result as normal/abnormal . HGB (test code = 11.0 g/dL 11.7-15.5 L 718-7) HCT (test code = 37.2 % 35.0-45.0 4544-3) MCV (test code = 80.3 fL 80.0-100.0 787-2) MCH (test code = 23.8 pg 27.0-33.0 L 785-6) MCHC (test code = 29.6 g/dL 32.0-36.0 L 786-4) RDW (test code = 15.8 % 11.0-15.0 H 788-0) Platelet count (test See_Comment L [Autom ated code = 777-3) message] The system which generated this result transmitted reference range : 140 - 400 Thousand/uL. Th e reference range was not used to interpret this result as normal/abnormal . MPV (test code = 7.5-12.5 Due to plat elet 776-5) or RBC variability in size or shapeth e result cannot b e reported accurately. Neutrophils, See_Comment [Automated absolute (test code message] The = 751-8) system which generated this result transmitted reference range : 1,500 - 7,800 cells/uL. The reference range was not used to interpret this result as normal/abnormal . Lymphocytes, See_Comment [Automated absolute (test code message] The = 731-0) system which generated this result transmitted reference range : 850 - 3,900 cells/uL. The reference range was not used to interpret this result as normal/abnormal . Monocytes, absolute See_Comment [Automa thalia (test code = 742-7) message] The system which generated this result transmitted reference range : 200 - 950 cells/uL. The reference range was not used to interpret this result as normal/abnormal . Eosinophils, See_Comment L [Automated absolute (test code message] The = 711-2) system which generated this result transmitted reference range : 15 - 500 cells/uL. The reference range was not used to interpret this result as normal/abnormal . Basophils, absolute See_Comment [Automa thalia (test code = 704-7) message] The system which generated this result transmitted reference range : 0 - 200 cells/u L. The reference range was not used to interpr et this result as normal/abnormal . Neutrophils (test 81 % code = 770-8) Lymphocytes (test 13.7 % code = 736-9) Monocytes (test code 4.6 % = 5905-5) Eosinophils (test 0.1 % code = 713-8) Basophils + RC (test 0.6 % code = 706-2) RANDA (test code = FASTING:NO RANDA) FASTING: NO RAC (test code = Performing RAC) Organization Information: Site ID: RGA [facility] Address: [address] [place] [address] Director: Alvin Valladares Lab Interpretation Abnormal (test code = 24960-1) [facility] CenterCvfqitjyPqagxwagufzi6906-14-67 07:48:00 Test Item Value Reference Range Interpretation Comments Fructosamine (test code 294 umol/L 205-285 H = 83877-0) RANDA (test code = RANDA) FASTING:NO FASTING: NO RAC (test code = RAC) Performing Organization Information: Site ID: EZ Name: [facility], Address: [address] [place] [address] Director: Kate Pickering MD,PhD,RANJEET Lab Interpretation (test Abnormal code = 02804-2) [facility] glycosylated hemoglobin (Hb A1C)2021-03-30 14:42:00 Test Item Value Reference Range Interpretation Comments POC Hemoglobin A1C (test code = 7.3 % 3960768) [facility] [id number] 14:30:00 Test Item Value Reference Range Interpretation Comments POC glucose (test code = 7528470) 65-100 Non fasting [facility] metabolic [id number] 11:38:00 Test Item Value Reference Interpretation Comments Range Glucose (test code 206 mg/dL 65-99 H Fasting reference = 2345-7) interval For so mejennifer without known diabetes, a glucosevalue >1 25 mg/dL indicates that they may havediabetes an d this should be confirmed with afollow-up test . BUN (test code = 16 mg/dL 7-25 3094-0) Creatinine (test 0.92 mg/dL 0.60-0.93 For patient s >49 code = 2160-0) years of age, the reference limit for Creatinine is approximately 1 3% higher for peopleidentifie d as -Akosua n. EGFR Non-Afr. See_Comment [Automated me ssage] [place] (test code The syst em which = 2775) generated this result transmit thalia reference range : > OR = 60 mL/min/1.73m2. The reference range was not used to interpret this result as normal/abnormal . EGFR See_Comment [Automated mes eleanor] [place] (test code The syst em which = 2774) generated this result transmit thalia reference range : > OR = 60 mL/min/1.73m2. The reference range was not used to interpret this result as normal/abnormal . BUN/creatinine NOT APPLICABLE See_Comment [Automated message] ratio (test code = The syste m which 3097-3) generated this result transmit thalia reference range : 6 - 22 (calc). The reference range was not used to interpret this result as normal/abnormal . Sodium (test code = 139 mmol/L 598-402 5300-2) Potassium (test 3.5 mmol/L 3.5-5.3 code = 2823-3) Chloride (test code 97 mmol/L 98-110 L = 2075-0) CO2 (test code = 29 mmol/L 20-32 8-9) Calcium (test code 9.7 mg/dL 8.6-10.4 = 13025-2) RAC (test code = Performing RAC) Organization Information: Site ID: RGA Name: [facility] Address: [address] [place] [address] Director: Alvin Valladares Lab Interpretation Abnormal (test code = 95655-1) [facility] Center[facility] [id number] 11:38:00 Test Item Value Reference Interpretation Comments Range Hemoglobin A1C (test See_Comment H For pablito geronimo without code = 4548-4) known diabete s, a hemoglobin A1cv alue of 6.5% or grea ter indicates that they may have diabet es and this should be confirmed with a follow-up test. For someone with kn own diabetes, a real ue <7% indicates t hat their diabetes is well controlled and a value greater than or equal t o 7% indicates suboptimal cont rol. A1c targets caitlin uld be individualiz ed based on durati on of diabetes, ag e, comorbid conditions, and other considerations. Currently, no consensus exist s regarding use ofhemoglobin A1 c for diagnosis o f diabetes for children. [Automated mess age] The system [employer] generated this result transmit thalia reference range : <5.7 % of total Hgb. The refere nce range was not u sed to interpret th is result as normal/abnormal . RAC (test code = Performing RAC) Organization Information: Site ID: A [facility]: [facility] Address: [address] [place] [address] Director: Alvin Valladares Lab Interpretation Abnormal (test code = 55824-0) [facility] Center[facility] [id number] 11:38:00 Test Item Value Reference Range Interpretation Comments Urine culture SEE NOTE EMMANUEL VIJAY Duque, (test code = ROUTINE Micro 630-4) Number: [id number] Test Status: Fi nal Specimen Source : Urine Specimen Quality: Adequa te Result: Growth of mixed donavan was isolated, suggesting prob able contamination. No further testing will be perform ed. If clinically indicated, recollection us ing a method to minimize contamination, with prompt transfer to Urine Culture Transport Tube, is recommended. RAC (test code Performing = RAC) Organization Information: Site ID: A [facility] Address: [address] [place] [phone] Director: Alvin Valladares [facility] Center[facility]album[facility] / creatinine urine [id number] 11:38:00 Test Item Value Reference Interpretation Comments Range Creatinine, urine, 52 mg/dL 20-275 random (test code = 2161-8) Microalbumin, urine 5.4 mg/dL See Note: Referenc e Range: (test code = Reference Range Not 70440-6) established Microalbumin/creati See_Comment H The ADA defines nine ratio (test abnormaliti es in code = 9318-7) albuminexcret ion as follows: Catego ry Result (mcg/mg creatinine) Nor mal <30Microalbumin uria 30-299 Clinical albuminuria > O R = 300 The ADA recommends that at least two of threespecimens collected withi n a 3-6 month perio d beabnormal befo re considering a patient to bewi thin a diagnostic category. [Auto mated message] The sy stem which generated this result transmit thalia reference range : <30 mcg/mg creat. T he reference range was not used to interpret this result as normal/abnormal . RAC (test code = Performing RAC) Organization Information: Site ID: RGA Name: [facility] Address: [address] [place] [address] Director: Alvin Valladares Lab Interpretation Abnormal (test code = 80447-2) [facility], WITH REFLEX TO [id number] 11:38:00 Test Item Value Reference Range Interpretation Comments Color, UA (test code YELLOW YELLOW = 5778-6) Appearance (test CLEAR CLEAR code = 5767-9) Specific gravity, 1.001-1.035 urine (test code = 5811-5) pH, urine (test code < OR = 5.0 5.0-8.0 = 5803-2) Glucose, urine (test 3+ NEGATIVE A code = 93876-3) Bilirubin, UA (test NEGATIVE NEGATIVE code = 5770-3) Ketones, UA (test NEGATIVE NEGATIVE code = 2514-8) Occult blood, urine NEGATIVE NEGATIVE (test code = 5794-3) Protein, UA (test NEGATIVE NEGATIVE code = 10723-0) Nitrite, UA (test NEGATIVE NEGATIVE code = 5802-4) Leukocyte esterase, 1+ NEGATIVE A UA (test code = 5799-2) WBC, UA (test code = 10-20 See_Comment A [Autom ated 5821-4) message] The system which generated this result transmitted reference range : < OR = 5 /HPF. The reference range was not used to interpr et this result as normal/abnormal . RBC, UA (test code = NONE SEEN See_Comment [Autom ated 65404-9) message] The system which generated this result transmitted reference range : < OR = 2 /HPF. The reference range was not used to interpr et this result as normal/abnormal . Squamous epithelial NONE SEEN See_Comment [Automa thalia cells, UA (test code message ] The = 76355-6) system which generated this result transmitted reference range : < OR = 5 /HPF. The reference range was not used to interpr et this result as normal/abnormal . Bacteria, UA (test NONE SEEN NONE SEEN /HPF code = 5769-5) Hyaline casts, UA NONE SEEN NONE SEEN /LPF (test code = 5796-8) RAC (test code = Performing RAC) Organization Information: Site ID: RGA Name: [employer] [facility] Lab Address: [address] [place] [address] Director: Alvin Valladares Lab Interpretation Abnormal (test code = 05297-8) [facility] Center[facility]id [id number] 22:51:00 Test Item Value Reference Interpretation Comments Range Cholesterol, total 170 mg/dL <200 (test code = 2093-3) HDL cholesterol 40 mg/dL See_Comment L [Automated (test code = 2085-9) message ] The system which generated this result transmitted reference range : > OR = 50. The reference range was not used to interpret this result as normal/abnormal . Triglycerides (test 341 mg/dL <150 H If a no n-fasting code = 2571-8) specimen was collected, considerrepeat triglyceride testing on a fasting specime nif clinically indicated. Jorge mae et al. J. of Cl in. Lipidol. 2015;9:129-169. LDL cholesterol mg/dL (calc) Reference ra nge: calculated (test <100 Desira ble code = 68977-9) range <100 m g/dL for primary prevention; <70 mg/dL for patie nts with CHD or diabetic patien ts with > or = 2 C HD risk factors. L DL-C is now calculat ed using the Vicente-Gonzalez calculation, wh ich is a validated novel method providing ruby r accuracy than t he Kenzie gomesa tikirsten in the estimati on of LDL-C. Rahel n SS et al. REGINE. 2013;310(19): 9488-0225 (http://educati on.Q Njini /faq/JNI508) Cholesterol/HDL See_Comment [Automated ratio (test code = message] The system 9830-1) which generated this result transmitted reference range : <5.0 (calc). Th e reference range was not used to interpret this result as normal/abnormal . Non-HDL cholesterol See_Comment H For silke ents with (test code = diabetes plus 1 07812-6) major ASCVD ris k factor, treatin g to a non-HDL-C goa l of <100 mg/dL (LDL -C of <70 mg/dL) i s considered a therapeutic opt ion. [Automated mess age] The system whic h generated this result transmit thalia reference range : <130 mg/dL (sergio c). The reference r nighat was not used to interpret this result as normal/abnormal . RAC (test code = Performing RAC) Organization Information: Site ID: [id number] [facility]: [facility] Address: [address] [place] [address] Director: Alvin Valladares Lab Interpretation Abnormal (test code = 23870-2) [id number] 22:51:00 Test Item Value Reference Range Interpretation Comments C-peptide (test 2.21 ng/mL 0.80-3.85 code = 1986-02) RAC (test code = Performing Organization RAC) Information: Site ID: [id number] [facility] Address: [address] [place] [address] Director: Dr. Alvin Valladares [facility]
--- NOTE | 2023-04-26 20:42 | RAD REPORT ---
EXAM DESCRIPTION: CT - CTHCSPWOC - 04/26/2023 7:43 pm CLINICAL HISTORY: Trauma, head and neck injury. TRAUMA COMPARISON: Head C Spine Mpr Wo Con dated 07/09/2021 TECHNIQUE: Axial thin cut noncontrast CT images of the head were obtained. Axial thin cut noncontrast CT images of the cervical spine were obtained. Multiplanar reformatted images were generated and reviewed. All CT scans are performed using dose optimization technique as appropriate and may include automated exposure control or mA/KV adjustment according to patient size. FINDINGS: CT HEAD WITHOUT CONTRAST: No acute hemorrhage, hydrocephalus or extra-axial collection is identified.No areas of brain edema or midline shift. The paranasal sinuses and mastoids are clear.The calvarium is intact. CT CERVICAL SPINE WITHOUT CONTRAST: No fracture or subluxation.No prevertebral soft tissues swelling is identified. IMPRESSION: No acute traumatic intracranial or cervical spine findings.
--- NOTE | 2023-04-26 20:49 | ER ---
Nurse's Notes [facility] Name: Ana Grant Age: 73 yrs Sex: Female : 1950 Arrival Date: 04/26/2023 Time: 19:01 Bed 16 Private MD: Diagnosis: Fall on same level, unspecified;Acute post-traumatic headache Presentation: 04/26 19:14 Chief complaint: Patient states: Fell getting out of car and hit back of head on cm10 concrete. Pt denies any LOC, not on blood thinners. Coronavirus screen: Vaccine status: Patient reports receiving the 2nd dose of the covid vaccine. Client denies travel out of the [place] in the last 14 days. Ebola Screen: Patient denies travel to an Ebola-affected area in the 21 days before illness onset. No symptoms or risks identified at this time. Initial Sepsis Screen: Does the patient meet any 2 criteria? No. Patient's initial sepsis screen is negative. Does the patient have a suspected source of infection? No. Patient's initial sepsis screen is negative. Risk Assessment: Do you want to hurt yourself or someone else? Patient reports no desire to harm self or others. Onset of symptoms was April 26, 2023. 19:14 Method Of Arrival: Wheelchair cm10 19:14 Acuity: TESSA 4 cm10 Historical: - Allergies: 19:16 PENICILLINS; cm10 - PMHx: 19:16 diabetes mellitus; Leukemia; neuropathy; Suppressed Immune System; Hypertensive cm10 disorder; - Immunization history:: Adult Immunizations unknown. - Social history:: Smoking status: Patient denies any tobacco usage or history of. Screenin:56 [facility] ED Fall Risk Assessment (Adult) History of falling in the last 3 months, jb4 including since admission No falls in past 3 months (0 pts) Confusion or Disorientation No (0 pts) Score/Fall Risk Level 0 - 2 = Low Risk Oriented to surroundings, Maintained a safe environment. Abuse screen: Denies threats or abuse. Nutritional screening: No deficits noted. Tuberculosis screening: No symptoms or risk factors identified. Assessment: 19:30 General: Appears in no apparent distress. comfortable, Behavior is calm, cooperative, jb4 appropriate for age. Pain: Complains of pain in scalp Pain does not radiate. Pain currently is 7 out of 10 on a pain scale. Neuro: Level of Consciousness is awake, alert, obeys commands, Oriented to person, place, time, situation. Cardiovascular: Patient's skin is warm and dry. Respiratory: Airway is patent Respiratory effort is even, unlabored, Respiratory pattern is regular, symmetrical. GI: No signs and/or symptoms were reported involving the gastrointestinal system. : No signs and/or symptoms were reported regarding the genitourinary system. EENT: No signs and/or symptoms were reported regarding the EENT system. Derm: Skin is intact, Skin is pink, warm \T\ dry. Musculoskeletal: Circulation, motion, and sensation intact. Range of motion: intact in all extremities. 20:46 Reassessment: Patient appears in no apparent distress at this time. Patient and/or jb4 family updated on plan of care and expected duration. Pain level reassessed. Patient is alert, oriented x 3, equal unlabored respirations, skin warm/dry/pink. Vital Signs: 19:14 BP 118 / 90; Pulse 83; Resp 16 S; Temp 97.1; Pulse Ox 100% on R/A; Weight 72.12 kg (R); cm10 Height 5 ft. 3 in. ; Pain 7/10; 20:30 BP 131 / 60; Pulse 78; Resp 16; Pulse Ox 99% on R/A; jb4 19:14 Body Mass Index 28.17 (72.12 kg, 160.02 cm) cm10 19:14 Pain Scale: Adult cm10 ED Course: 19:05 Patient arrived in ED. kj1 19:07 Heriberto Palacios DO is Attending Physician. ms3 19:14 Jacy Donahue, RN is Primary Nurse. cm10 19:16 Triage completed. cm10 19:16 Arm band placed on Patient placed in an exam room, on a stretcher. cm10 19:40 Rafa Miranda, RN is Primary Nurse. jb4 19:44 CT Head C Spine In Process Unspecified. EDMS 20:56 Patient has correct armband on for positive identification. Bed in low position. Call jb4 light in reach. Side rails up X 1. Client placed on continuous cardiac and pulse oximetry monitoring. NIBP monitoring applied. Pulse ox on. NIBP on. 20:56 No provider procedures requiring assistance completed. Patient did not have IV access jb4 during this emergency room visit. Administered Medications: No medications were administered Medication: 20:56 VIS not applicable for this client. jb4 Outcome: 20:49 Discharge ordered by . ms3 20:56 Discharged to home ambulatory, jb4 20:56 Condition: stable 20:56 Discharge instructions given to patient, Instructed on discharge instructions, follow up and referral plans. Demonstrated understanding of instructions, follow-up care, 20:59 Patient left the ED. jb4 Signatures: Dispatcher [employer] EDMS Rafa Miranda, RN RN jb4 Aminah Last kj1 Heriberto Palacios DO DO ms3 Jacy Donahue, RN RN cm10
--- NOTE | 2023-04-26 20:49 | EDPHYS ---
Physician Documentation [facility] Name: Ana Grant Age: 73 yrs Sex: Female : 1950 Arrival Date: 04/26/2023 Time: 19:01 Bed 16 Private MD: ED Physician Heriberto Palacios HPI: 04/26 19:25 This 73 yrs old Female presents to ER via Wheelchair with complaints of Fall Injury, ms3 Head Injury Without LOC-Adult. 19:25 73-year-old female with past medical history of diabetes, leukemia, neuropathy, ms3 hypertension presents to the emergency department 45 minutes status post fall while getting out of her car. Patient states she struck the right posterior portion of her head. Patient states pain is a 2/10 described as pressure. Patient denies any alleviating or inciting factors.. Historical: - Allergies: 19:16 PENICILLINS; cm10 - PMHx: 19:16 diabetes mellitus; Leukemia; neuropathy; Suppressed Immune System; Hypertensive cm10 disorder; - Immunization history:: Adult Immunizations unknown. - Social history:: Smoking status: Patient denies any tobacco usage or history of. ROS: 19:25 Constitutional: Negative for fever, and chills. ENT: Negative for injury, pain, and ms3 discharge, Neck: Negative for injury, pain, and swelling, Cardiovascular: Negative for chest pain, and palpitations. Respiratory: Negative for shortness of breath, cough, wheezing, and pleuritic chest pain, Abdomen/GI: Negative for abdominal pain, nausea, vomiting, diarrhea, and constipation, MS/Extremity: Negative for injury and deformity, Skin: Negative for injury, rash, and discoloration, 19:25 All other systems are negative, Exam: 19:25 Constitutional: This is a well developed, well nourished patient who is awake, alert, ms3 and in no acute distress. Neck: Trachea midline, no cervical lymphadenopathy. Supple, full range of motion without nuchal rigidity, or vertebral point tenderness. No Meningismus. Chest/axilla: Normal chest wall appearance and motion. Nontender with no deformity. Cardiovascular: Regular rate and rhythm with a normal S1 and S2. No gallops, murmurs, or rubs. Normal PMI, no JVD. No pulse deficits. Respiratory: Lungs have equal breath sounds bilaterally, clear to auscultation and percussion. No rales, rhonchi or wheezes noted. No increased work of breathing, no retractions or nasal flaring. Abdomen/GI: Soft, non-tender, with normal bowel sounds. No distension or tympany. No guarding or rebound. No evidence of tenderness throughout. Skin: Warm, dry with normal turgor. Normal color with no rashes, no lesions, and no evidence of cellulitis. MS/ Extremity: Pulses equal, no cyanosis. Neurovascular intact. Full, normal range of motion. 19:25 Head/face: Noted is tenderness, that is moderate, of the right side of the back of head, Vital Signs: 19:14 BP 118 / 90; Pulse 83; Resp 16 S; Temp 97.1; Pulse Ox 100% on R/A; Weight 72.12 kg (R); cm10 Height 5 ft. 3 in. ; Pain 7/10; 20:30 BP 131 / 60; Pulse 78; Resp 16; Pulse Ox 99% on R/A; jb4 19:14 Body Mass Index 28.17 (72.12 kg, 160.02 cm) cm10 19:14 Pain Scale: Adult cm10 MDM: 19:24 Patient medically screened. ms3 19:25 Differential diagnosis: closed head injury, contusion, fracture. ms3 20:05 Independent interpretation of the following test(s) in the Emergency Department CT ms3 Scan: My interpretation is CT Head without contrast images reviewed do not reveal ICH. 20:49 Data reviewed: vital signs, nurses notes, radiologic studies, CT scan, and as a result, ms3 I will discharge patient. Counseling: I had a detailed discussion with the patient and/or guardian regarding the historical points, exam findings, and any diagnostic results supporting the discharge/admit diagnosis, radiology results, the need for outpatient follow up, to return to the emergency department if symptoms worsen or persist or if there are any questions or concerns that arise at home. Special discussion: I discussed with the patient/guardian in detail that at this point there is no indication for admission to the hospital. It is understood, however, that if the symptoms persist or worsen the patient needs to return immediately for re-evaluation. ED course: Discussed CT head and neck with patient. Patient follow-up with primary care physician in 2 to 3 days. Patient understands agrees with plan. All questions were answered. Return precautions discussed include worsening symptoms, or any other concerns.. 04/26 19:22 Order name: CT Head C Spine; Complete Time: 20:44 ms3 Administered Medications: No medications were administered Disposition Summary: 04/26/23 20:49 Discharge Ordered Notes: Location: Home ms3 Condition: Stable ms3 Diagnosis - Fall on same level, unspecified ms3 - Acute post-traumatic headache ms3 Followup: ms3 - With: Private Physician - When: 2 - 3 days - Reason: Recheck today's complaints Discharge Instructions: - Discharge Summary Sheet ms3 - Fall Prevention in the Home, Adult, [id number] ms3 - Head Injury, Adult, [id number] ms3 Forms: - Medication Reconciliation Form ms3 - Thank You Letter ms3 - Antibiotic Education ms3 - Prescription Opioid Use ms3 - Patient Portal Instructions ms3 - Leadership Thank You Letter ms3 Signatures: Dispatcher [employer] EDHeriberto Capellan DO DO ms3 Jacy Donahue RN RN cm10
[2023-04-26 21:04] VITALS: TEMP 97.1
[2023-04-26 21:06] VITALS: BP 131/60; O2SAT 99
== END 2023-04-26 20:59 | disposition home or self-care (01) ==
LOC: ER 19:01
DX: G44.319 Acute post-traumatic headache, not intractable (principal); W18.30XA Fall on same level, unspecified, initial encounter; E11.9 Type 2 diabetes mellitus without complications; I10 Essential (primary) hypertension; Z88.0 Allergy status to penicillin
CPT/HCPCS: 70450; 72125; 99283

== ENCOUNTER → 2023-08-06 | Emergency (ER) | payer OTHER ==
[~2023-08-06] MED LIST: INSULIN REGULAR (HUMAN) 100 UNIT/ML ONE; NA CHLORIDE 0.9% 1,000 ML ONE; TDAP (DIPHTH,PERTUSS(ACELL),TET VAC) 0.5 ML VIAL IMVAC ONE
[2023-08-06 14:18] LABS: Absolute Lymphocytes (CBC) 5.7 K/uL (0.7-4.9); Hematocrit 41.6 % (36.0-45.0); Lymphocytes % 55.1 % (15.3-44.8); MCV 92.3 fL (80-100); MPV 9.8 fL (7.6-11.3); Platelets 100 thou/uL (152-406)
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
--- NOTE | 2023-08-06 14:31 | RAD REPORT ---
EXAM DESCRIPTION: RAD - Hand Left 3 View - 08/06/2023 2:23 pm CLINICAL HISTORY: PAIN COMPARISON: No comparisons FINDINGS/IMPRESSION: No acute fracture. No malalignment. Mild degenerative changes are present at th e first carpometacarpal joint. Mild interphalangeal joint space narrowing.
[2023-08-06 15:03] LABS: Potassium 4.3 mEq/L (3.5-5.1)
[2023-08-06 15:23] LABS: Albumin 3.9 g/dL (3.4-5.0); Bilirubin Total 0.7 mg/dL (0.2-1.0); Protein, Total 7.7 g/dL (6.4-8.2)
[2023-08-06 17:14] LABS: Potassium 3.8 mEq/L (3.5-5.1)
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
[2023-08-06 18:20] VITALS: BP 163/64; TEMP 98.5; O2SAT 97
== END ==
LOC: ER 13:32
DX: R07.89 Other chest pain (principal); S60.512A Abrasion of left hand, initial encounter; S60.222A Contusion of left hand, initial encounter; E11.65 Type 2 diabetes mellitus with hyperglycemia; V49.40XA Driver injured in collision with unspecified motor vehicles in traffic accident, initial encounter; Z88.0 Allergy status to penicillin
CPT/HCPCS: 85025; 80048; 36415; 82947 ×2; 80053; 71045; 73130; J1815; J7030

== ENCOUNTER 2023-09-02 11:03 | Inpatient (IN) | payer OTHER ==
[2023-09-02 12:02] LABS: Absolute Monocytes 0.2 K/uL (0.1-1.3); Absolute Neutrophil 1.9 K/uL (1.8-8.0); Basophils % 0.8 % (0-1.3); Eosinophils % 0.6 % (0-4.4); Hematocrit 41.5 % (36.0-45.0); Hemoglobin 14.1 g/dL (12.0-15.0); Lymphocytes % 58.2 % (15.3-44.8); MCH 32.8 pg (27.0-35.0); MCHC 33.9 g/dL (32.0-36.0); MCV 96.7 fL (80-100); MPV 9.8 fL (7.6-11.3); Monocytes % 4.6 % (3.3-12.3); Neutrophils % 35.8 % (41.7-73.7); Nucleated Red Blood Cells % 0.4 % (0-0); Platelets 71 thou/uL (152-406); RBC Red Blood Cell Count 4.29 M/uL (3.86-4.86); Red Cell Distribution Width 13.1 % (12.1-15.2)
[2023-09-02 12:49] LABS: Anion Gap 15.4 mEq/L (5.0-15.0); Potassium 4.4 mEq/L (3.5-5.1)
[2023-09-02 13:00] LABS: Atypical Lymphocytes 2 %; Differential Total Cells Count 100; Lymphocytes 56 % (15-42); Monocytes 4 % (0-10); Platelet Estimate DECR; Segmented Neutrophils 37 % (40-80); White Blood Cell Scan DIFF (OK)
[2023-09-02 13:02] LABS: Blood Morphology Comment NOT SEEN (NOT SEEN)
[2023-09-02 13:14] LABS: Specific Gravity 1.027 (1.005-1.030); Urine Ascorbic Acid Negative (Negative); Urine Bilirubin NEGATIVE (Negative); Urine Blood Negative (Negative); Urine Clarity Clear (Clear); Urine Color Colorless (Yellow); Urine Glucose 4+ (Over) (Negative); Urine Ketones Negative (Negative); Urine Microscopic Reflex YN NO UMIC; Urine Nitrite Negative (Negative); Urine Protein Negative (Negative); Urine RBC <5 /HPF (None Seen); Urine Urobilinogen Normal mg/dL (0.2-1.0); Urine WBC <5 /HPF (<5); Urine pH 5.5 (5.0-7.0)
[2023-09-02] MEDS: INSULIN REGULAR (HUMAN) 100 UNIT/ML IV ONE (13:15)
[2023-09-02] MEDS: INSULIN REGULAR (HUMAN) 100 UNIT/ML SQ ONE (13:20)
--- NOTE | 2023-09-02 13:24 | RAD REPORT ---
EXAM DESCRIPTION: RAD - Chest Single View - 09/02/2023 1:16 pm CLINICAL HISTORY: tachypnea Chest pain. COMPARISON: Chest Single View dated 08/06/2023; Chest Single View dated 07/10/2021; Chest Single View dated 07/09/2021 FINDINGS: Portable technique limits examination quality. The lungs are grossly clear. The heart is normal in size. No displaced fractures. IMPRESSION: No acute intrathoracic process suspected.
[2023-09-02] MEDS ORDERED: ONDANSETRON 4 MG/2 ML VIAL IV PRN (13:53)
[2023-09-02] MEDS ORDERED: INSULIN REGULAR (HUMAN) 100 UNIT/ML ONE (13:56)
[2023-09-02] MEDS: NA CHLORIDE 0.9% 1,000 ML IV SCH ×2 (14:00→15:00)
--- NOTE | 2023-09-02 14:04 | P.HP ---
Certification for Inpatient Patient admitted to: Inpatient With expected LOS: <2 Midnights <Sultana Lima - Last Filed: 09/02/23 15:44> Patient History Date of Service: 09/02/23 Reason for admission: Hyperglycemia History of Present Illness: 73-year-old female with a past medical history of Parkinson's, insulin-dependent diabetes mellitus, medication noncompliance, hypertension, hyperlipidemia, leukemia, immunosuppression, neuropathy, chronic pain, presents to the emergency room with hyperglycemia. She reports she was referred to the emergency room for high blood glucose on labs from oncology. She reports she lives alone, son brought her to to the emergency room. She reports not taking her insulin today or yesterday, she reports urinary frequency, burning with urination. She denies chest pain, shortness of breath, dizziness, edema. Plan to admit for HHNK, pseudohyponatremia, acute cystitis. Nephrology consulted to manage sodium, IV fluids. Laboratory evaluation sodium 126 blood glucose greater than 900, thrombocytopenia platelets 71 acute kidney injury unknown baseline BUN 19 creatinine 1.21 estimated GFR 47, chest x-ray IMPRESSION: No acute intrathoracic process suspected. - Past Medical/Surgical History Diabetic: Yes -: Leukemia -: Hypertension -: Hyperlipidemia -: Parkinson -: Insulin-dependent diabetes mellitus -: Chronic pain -: Breast biopsy -: Partial hystrectomy -: hand surgery -: Gall bladder stone removal - Family History Mother -: Cancer Sister -: Cancer - Social History Alcohol use: No CD- Drugs: No Caffeine use: Yes <Sultana Lima - Last Filed: 09/02/23 15:44> Date of Service: 09/02/23 <Madina Farmer - Last Filed: 09/02/23 17:13> Allergies Penicillins Allergy (Verified 06/20/22 13:49) cramps Home Medications: Atorvastatin Calcium 1 tab PO DAILY 07/11/21 Cetirizine HCl 1 tab PO DAILY 07/11/21 Dulaglutide [Trulicity] 1 syr SQ SEECOM 07/11/21 Furosemide 1 tab PO DAILY 07/11/21 Insulin Degludec [Tresiba Flextouch U-100] 60 units SQ BEDTIME 07/11/21 Insulin Lispro [Humalog] 0 - 15 unit SQ TID 01/26/22 Metformin ER [Glucophage ER*] 2 tab PO DAILY 07/11/21 Sertraline [Zoloft*] 25 mg PO DAILY 07/11/21 Carbidopa/Levodopa [Carbidopa-Levo 25-100 mg Odt] 2 tab PO TID 06/20/22 Hydrocodone 5/APAP 325 [[place] 5/325*] 1 tab PO TID PRN 06/20/22 Concan-3/Dha/Epa/Fish Oil [Fish Oil 1,000 mg Softgel] 1 tab PO DAILY 06/20/22 Review of Systems Per HPI <Sultana Lima - Last Filed: 09/02/23 15:44> Physical Examination - Physical Exam General: Alert, In no apparent distress, Oriented x3 HEENT: Atraumatic, Normocephalic Neck: JVD not distended Respiratory: Clear to auscultation bilaterally, Normal air movement Cardiovascular: Normal pulses, Regular rate/rhythm Gastrointestinal: Normal bowel sounds, Soft and benign Musculoskeletal: No clubbing, No swelling Integumentary: No rashes, No breakdown Neurological: Normal speech, Normal strength at 5/5 x4 extr Urinary: Other (Urinary frequency) - Studies Laboratory Data (last 24 hrs) 09/02/23 09/02/23 11:50 11:50 WBC 5.20 Hgb 14.1 Hct 41.5 Plt Count 71 L Sodium 126 L Potassium 4.4 BUN 20 H Creatinine 1.39 H Glucose 916 H* <Sultana Lima - Last Filed: 09/02/23 15:44> - Studies Laboratory Data (last 24 hrs) 09/02/23 09/02/23 11:50 11:50 WBC 5.20 Hgb 14.1 Hct 41.5 Plt Count 71 L Sodium 126 L Potassium 4.4 BUN 20 H Creatinine 1.39 H Glucose 916 H* <Madina Farmer - Last Filed: 09/02/23 17:13> Assessment and Plan - Plan Assessment plan HHNK Pseudohyponatremia insulin-dependent diabetes mellitus medication noncompliance Admit to ICU, nephrology, consult for hyponatremia Insulin drip, every hour blood sugars, every 4 hours BMP and mag Resume home long-acting insulin Transition to D5 half after blood glucose less than 200 referred to the emergency room for high blood glucose on labs from oncology. She reports she lives alone, son brought her to to the emergency room. She reports not taking her insulin today or yesterday, she reports urinary frequency, burning with urination. Blood glucose greater than 900 sodium 126 blood glucose greater than 900, chest x-ray IMPRESSION: No acute intrathoracic process suspected. acute kidney injury unknown baseline BUN 19 creatinine 1.21 estimated GFR 47, thrombocytopenia platelets 71 Trend platelets hypertension leukemia immunosuppression Resume appropriate home medication Acute cystitis Yeast infection IV Zosyn, IV fluconazole neuropathy Resume appropriate home meds Full code DVT SCD Diet n.p.o. Disposition patient lives at home independently, ambulates with a rolling walker Discharge Plan: Home - Advance Directives Does patient have a Living Will: No Does patient have a Durable POA for Healthcare: No - Code Status/Comfort Care Code Status: Full Code Critical Care: No Time Spent Managing Pts Care (In Minutes): 55 <Sultana Lima - Last Filed: 09/02/23 15:44> Physician Review Additional Text: Pt seen and examined. I agree with the note by the TIE KNITTER HELPER. Pt is a 73 yo female with past medical history of DM who was sent [facility] ER by her PCP dueto hyponatremia. On admission, Lab studies show glucose 916, NA 126, K 4.4 and Cr 1.39. At bedside, pt is in NAD. A/P: HHS: glucose is 916. Will continue insulin drip. AG is 11. Continue accuchek, SSI and ADA diet. Will check A1c. Pseudo-hyponatremia: roxana 126 due to hyperglycemia. Will continue insulin drip and monitor Na level UTI: UA shows acute cystitis and yeast inurine. Willcontinue zosyna nd fluconazole. Follow up urien cx. MAURIZIO: cr is 1.39. Will give IVF, avoid nephrotoxins and monitor renal function DVT ppx: SCD <Madina Farmer - Last Filed: 09/02/23 17:13>
[2023-09-02] MEDS ORDERED: NA CHLORIDE 0.9% 1,000 ML ONE (14:51)
[2023-09-02] MEDS: FLUCONAZOLE 200mg IVPB 200 MG/100 ML BAG IV SCH (15:00)
[2023-09-02] MEDS: INSULIN -REGULAR HUMAN 100 UNIT in NA CHLORIDE 0.9% 100 ML IV SCH (15:14)
[2023-09-02 15:31] LABS: Anion Gap 15.9 mEq/L (5.0-15.0)
[2023-09-02 15:32] LABS: Potassium 3.9 mEq/L (3.5-5.1)
--- NOTE | 2023-09-02 15:54 | EDPHYS ---
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 11:57 Pt reports sent in by her PCP for "low salt". Patient reports fatigue and malaise rn lately. No fever. NO head injury. No focal neurological deficit. . Onset: The symptoms/episode began/occurred at an unknown time. It is unknown whether or not the patient has had similar symptoms in the past. Historical: - Allergies: 11:16 PENICILLINS; ap3 - PMHx: 11:16 diabetes mellitus; Hypertensive disorder; Leukemia; neuropathy; Suppressed Immune ap3 System; Parkinson's disease; - Immunization history:: Client reports having NOT received the Covid vaccine. Flu vaccine is up to date. - Social history:: Smoking status: Patient denies any tobacco usage or history of. - Family history:: not pertinent. - Hospitalizations: : No recent hospitalization is reported. ROS: 11:57 Constitutional: Negative for fever, chills, and weight loss, Cardiovascular: Negative rn for chest pain, palpitations, and edema, Respiratory: Negative for shortness of breath, cough, wheezing, and pleuritic chest pain, Abdomen/GI: Negative for abdominal pain, nausea, vomiting, diarrhea, and constipation, Back: Negative for injury and pain, MS/Extremity: Negative for injury and deformity, Skin: Negative for injury, rash, and discoloration, Neuro: Negative for headache, numbness, tingling, and seizure, Exam: 11:57 Constitutional: This is a well developed, well nourished patient who is awake, alert, rn and in no acute distress. Head/Face: Normocephalic, atraumatic. ENT: dry MM Cardiovascular: Regular rate and rhythm. No pulse deficits. Respiratory: No increased work of breathing, no retractions or nasal flaring. Abdomen/GI: soft, non-tender MS/ Extremity: Pulses equal, no cyanosis. Neurovascular intact. Full, normal range of motion. Equal circumference. Neuro: Awake and alert, GCS 15, oriented to person, place, time, and situation. Cranial nerves II-XII grossly intact. Motor strength 4/5 in all extremities. Sensory grossly intact. Vital Signs: 11:14 BP 184 / 69; Pulse 90; Resp 18; Temp 98.7; Pulse Ox 97% ; Weight 66.22 kg; Height 5 ft. ap3 3 in. ; Pain 0/10; 11:47 BP 180 / 71; Pulse 80; Resp 24; Pulse Ox 94% on R/A; nj1 12:40 BP 172 / 64; Pulse 74; Resp 20; Pulse Ox 96% on R/A; nj1 13:30 BP 158 / 70; Pulse 74; Resp 24; Pulse Ox 95% ; nj1 14:30 BP 163 / 78; Pulse 85; Resp 16; Pulse Ox 97% on R/A; nj1 15:15 BP 168 / 66; Pulse 80; Resp 18; Pulse Ox 97% on R/A; nj1 19:45 BP 147 / 56; Pulse 76; Resp 17 S; Pulse Ox 98% on R/A; ha1 11:14 Body Mass Index 25.86 (66.22 kg, 160.02 cm) ap3 11:14 Pain Scale: Adult ap3 MDM: 11:08 Patient medically screened. rn 11:58 ED course: Pt with known CLL, does not recall her current medication. rn 13:42 Differential Diagnosis hyponatremia, medication side effect, hyperglycemia. Data rn reviewed: vital signs, nurses notes, lab test result(s), radiologic studies, and as a result, I will admit patient. Consideration of Admission/Observation Patient was admitted/placed on observation. Escalation of care including admission/observation considered. Care significantly affected by the following chronic conditions: Diabetes. Counseling: I had a detailed discussion with the patient and/or guardian regarding the historical points, exam findings, and any diagnostic results supporting the discharge/admit diagnosis, lab results, the need for further work-up and treatment in the hospital. 09/01 11:20 Order name: CBC with Diff rn 09/01 11:20 Order name: Basic Metabolic Panel rn 09/01 11:20 Order name: Urinalysis w/ reflexes rn 09/01 11:20 Order name: Urine Sodium Random rn 09/01 11:20 Order name: Urine Osmolality rn 09/01 11:20 Order name: Urine Creatinine rn 09/01 15:53 Order name: Manual Differential EDMS 09/01 15:53 Order name: CBC Smear Scan EDMS 09/01 15:54 Order name: Glucose, Ancillary Testing EDMS 09/01 15:54 Order name: Basic Metabolic Panel EDMS 09/01 15:57 Order name: Basic Metabolic Panel EDMS 09/01 15:57 Order name: Basic Metabolic Panel EDMS 09/01 15:57 Order name: Basic Metabolic Panel EDMS 09/01 15:57 Order name: Basic Metabolic Panel EDMS 09/01 15:57 Order name: CBC with Automated Diff EDMS 09/01 15:57 Order name: CBC with Automated Diff EDMS 09/01 15:57 Order name: CBC with Automated Diff EDMS 09/01 15:57 Order name: CBC with Automated Diff EDMS 09/01 15:57 Order name: CBC with Automated Diff EDMS 09/01 15:57 Order name: Magnesium EDMS 09/01 15:57 Order name: Magnesium EDMS 09/01 15:57 Order name: Magnesium EDMS 09/01 15:57 Order name: Magnesium EDMS 09/01 15:57 Order name: Magnesium EDMS 09/01 15:57 Order name: Magnesium EDMS 09/01 15:57 Order name: Magnesium EDMS 09/01 15:57 Order name: Magnesium EDMS 09/01 15:57 Order name: Magnesium EDMS 09/01 15:57 Order name: Magnesium EDMS 09/01 15:58 Order name: Hemoglobin A1c EDMS 09/01 15:58 Order name: Hemoglobin A1c EDMS 09/01 16:16 Order name: Glucose, Ancillary Testing EDMS 09/01 17:20 Order name: Glucose, Ancillary Testing EDMS 09/01 19:00 Order name: Glucose, Ancillary Testing EDMS 09/01 20:10 Order name: Glucose, Ancillary Testing EDMS 09/01 11:58 Order name: XRAY Chest (1 view) rn 09/01 15:54 Order name: RAD EDMS 09/01 11:20 Order name: EKG; Complete Time: 11:20 rn 09/01 11:20 Order name: IV Start; Complete Time: 11:57 rn 09/01 11:20 Order name: EKG - Nurse/Tech; Complete Time: 11:41 rn Administered Medications: 14:03 Drug: Insulin Regular Human IVP 10 units IVP once {Co-Signature: ph (Beverly Esparza RN).} Route: IVP; Site: left antecubital; 14:04 Drug: Insulin Regular Human Sub-Q 10 units Sub-Q once {Co-Signature: ap3 (johny Lester RN).} Route: Sub-Q; Site: left lower abdomen; Disposition Summary: 09/02/23 13:46 Hospitalization Ordered Notes: Hospitalization Status: Inpatient Admission rn Provider: Madina Farmer rn Condition: Stable rn Problem: new rn Symptoms: have improved rn Bed/Room Type: Standard rn Location: Intensive Care Unit(09/02/23 19:45) cg Room Assignment: 6-(09/02/23 19:45) cg Diagnosis - Hyperglycemia, unspecified rn - Hypo-osmolality and hyponatremia rn - Dehydration rn Forms: - Medication Reconciliation Form rn - SBAR form rn - Leadership Thank You Letter rn Signatures: Dispatcher [employer] EDMS Nayeli Yanez Roman, MD MD rn Garcia, Cindy RN RN cg Salena Lester, RN RN ap3 Urmila Morrison RN RN ll1 Ramona Mac RN RN [email or web address] Geraldine Patel RN RN nj1 Beverly Esparza RN Salena Lester RN [email or web address] Corrections: (The following items were deleted from the chart) 15:21 13:46 Telemetry/MedSurg (Inpatient) rn kb3 15:21 13:46 rn kb3 17:22 15:21 [facility] ER HOLD kb3 bd 17:22 15:21 ERHOLD- kb3 bd 17:23 17:22 Telemetry/MedSurg (Inpatient) bd bd 17:23 17:22 408 bd bd 19:45 17:23 [facility] ER HOLD bd cg 19:45 17:23 ERHOLD- bd cg
--- NOTE | 2023-09-02 15:54 | ER ---
Nurse's Notes [facility] Name: Ana Grant Age: 73 yrs Sex: Female : 1950 Arrival Date: 09/02/2023 Time: 11:03 Bed 18 Private MD: Diagnosis: Hyperglycemia, unspecified;Hypo-osmolality and hyponatremia;Dehydration Presentation: 09/01 11:14 Chief complaint: Patient states: she was called by her DrLuba to come get checked out for ap3 "low salt levels" this morning. Patient believes her "salt results" were in the 120's. Coronavirus screen: At this time, the client does not indicate any symptoms associated with coronavirus-19. Ebola Screen: No symptoms or risks identified at this time. Initial Sepsis Screen: Does the patient meet any 2 criteria? HR > 90 bpm. Does the patient have a suspected source of infection? No. Patient's initial sepsis screen is negative. Risk Assessment: Do you want to hurt yourself or someone else? Patient reports no desire to harm self or others. Onset of symptoms is unknown. 11:14 Method Of Arrival: Wheelchair ap3 11:14 Acuity: TESSA 2 ap3 Triage Assessment: 11:17 General: Appears in no apparent distress. Behavior is calm, cooperative. Pain: Denies ap3 pain. Neuro: Level of Consciousness is awake, alert, obeys commands, Oriented to person, place, time, situation, Appropriate for age. Cardiovascular: Patient's skin is warm and dry. Respiratory: Airway is patent Respiratory effort is even, unlabored, Respiratory pattern is regular, symmetrical. Historical: - Allergies: 11:16 PENICILLINS; ap3 - PMHx: 11:16 diabetes mellitus; Hypertensive disorder; Leukemia; neuropathy; Suppressed Immune ap3 System; Parkinson's disease; - Immunization history:: Client reports having NOT received the Covid vaccine. Flu vaccine is up to date. - Social history:: Smoking status: Patient denies any tobacco usage or history of. - Family history:: not pertinent. - Hospitalizations: : No recent hospitalization is reported. Screenin:17 Abuse screen: Denies threats or abuse. Nutritional screening: No deficits noted. ap3 Tuberculosis screening: No symptoms or risk factors identified. 11:45 [facility] ED Fall Risk Assessment (Adult) History of falling in the last 3 months, nj1 including since admission No falls in past 3 months (0 pts) Confusion or Disorientation No (0 pts) Intoxicated or Sedated No (0 pts) Impaired Gait Yes (1 pt) Mobility Assist Device Used Yes (1 pt) Altered Elimination No (0 pt) Score/Fall Risk Level 0 - 2 = Low Risk Oriented to surroundings, Maintained a safe environment, Hourly rounding (assess needs \\T\\ fall precautionary measures) done. Assessment: 11:45 General: Appears in no apparent distress. comfortable, Behavior is calm, cooperative, nj1 appropriate for age. 11:45 Pain: Denies pain. Neuro: Level of Consciousness is awake, alert, obeys commands, nj1 Oriented to person, place, situation. Cardiovascular: Patient's skin is warm and dry. Respiratory: Airway is patent Respiratory effort is even, unlabored. 12:40 Reassessment: Patient appears in no apparent distress at this time. Patient and/or nj1 family updated on plan of care and expected duration. Pain level reassessed. Patient is alert, oriented x 3, equal unlabored respirations, skin warm/dry/pink. 13:30 Reassessment: Patient appears in no apparent distress at this time. Patient and/or nj1 family updated on plan of care and expected duration. Pain level reassessed. Patient is alert, oriented x 3, equal unlabored respirations, skin warm/dry/pink. 14:30 Reassessment: Patient appears in no apparent distress at this time. Patient and/or nj1 family updated on plan of care and expected duration. Pain level reassessed. Patient is alert, oriented x 3, equal unlabored respirations, skin warm/dry/pink. 15:15 Reassessment: Patient appears in no apparent distress at this time. Patient and/or nj1 family updated on plan of care and expected duration. Pain level reassessed. Patient is alert, oriented x 3, equal unlabored respirations, skin warm/dry/pink. 20:00 Reassessment: ATTEMPTED TO GIVE REPORT NURSE NOT AVAILABLE. ha1 20:15 Reassessment: ATTEMPTED TO GIVE REPORT NURSE STATES " WE JUST GOT THIS ADMISSION PLEASE ha1 GIVE ME 10-15 MINUTES.". Vital Signs: 11:14 BP 184 / 69; Pulse 90; Resp 18; Temp 98.7; Pulse Ox 97% ; Weight 66.22 kg; Height 5 ft. ap3 3 in. ; Pain 0/10; 11:47 BP 180 / 71; Pulse 80; Resp 24; Pulse Ox 94% on R/A; nj1 12:40 BP 172 / 64; Pulse 74; Resp 20; Pulse Ox 96% on R/A; nj1 13:30 BP 158 / 70; Pulse 74; Resp 24; Pulse Ox 95% ; nj1 14:30 BP 163 / 78; Pulse 85; Resp 16; Pulse Ox 97% on R/A; nj1 15:15 BP 168 / 66; Pulse 80; Resp 18; Pulse Ox 97% on R/A; nj1 19:45 BP 147 / 56; Pulse 76; Resp 17 S; Pulse Ox 98% on R/A; ha1 11:14 Body Mass Index 25.86 (66.22 kg, 160.02 cm) ap3 11:14 Pain Scale: Adult ap3 ED Course: 11:05 Patient arrived in ED. rg4 11:08 Frank Avendano MD is Attending Physician. rn 11:16 Triage completed. ap3 11:17 Arm band placed on right wrist. ap3 11:44 conveyor monitor on. Pulse ox on. NIBP on. ap3 11:44 EKG done, by ED staff, reviewed by Frank Avendano MD. ap3 11:45 Patient has correct armband on for positive identification. Placed in gown. Bed in low nj1 position. Call light in reach. Side rails up X 1. Provided Education on: fall precautions, call light. 11:46 Geraldine Patel, RN is Primary Nurse. nj1 11:50 Inserted saline lock: 22 gauge in left antecubital area, using aseptic technique. Blood nj1 collected. 13:44 Madina Farmer MD is Hospitalizing Provider. rn 15:00 Inserted saline lock: 22 gauge in left forearm, using aseptic technique. Blood nj1 collected. 15:30 No provider procedures requiring assistance completed. nj1 15:30 Patient admitted, IV remains in place. nj1 15:55 RAD In Process Unspecified. EDMS 19:00 Report given to Prisca ANTHONY. nj1 20:45 Report given to GABRIELLE QUIROGA. ha1 Administered Medications: 14:03 Drug: Insulin Regular Human IVP 10 units IVP once {Co-Signature: ph (Beverly Esparza ll1 RN).} Route: IVP; Site: left antecubital; 14:04 Drug: Insulin Regular Human Sub-Q 10 units Sub-Q once {Co-Signature: myesha (johny Lester RN).} Route: Sub-Q; Site: left lower abdomen; Medication: 15:30 VIS not applicable for this client. nj1 Outcome: 13:46 Decision to Hospitalize by Provider. rn 15:30 Admitted to ER Hold. Please see [facility] for further documentation. nj1 15:30 Condition: stable nj1 15:30 Instructed on the need for admit, 20:55 Admitted to ICU accompanied by nurse, accompanied by tech, via stretcher, room 6, with 1 chart, Report called to GABRIELLE QUIROGA 20:55 Patient left the ED. ha1 Signatures: Dispatcher [employer] EDMS Frank Avendano MD MD rn Garcia, Rubi rg4 Prokisch, Amanda, RN RN ap3 Urmila Morrison RN RN [facility] Prisca Pritchard RN RN 1 Geraldine Patel RN RN nj1 Hall, Patricia RN Salena Lester RN3 Corrections: (The following items were deleted from the chart) 11:18 11:14 Chief complaint: Patient states: she was called by her to come get checked ap3 out for "low salt levels" this morning. ap3 21:01 21:00 Patient left the ED. ha1 1
[2023-09-02 15:55] VITALS: BMI 25.8
--- NOTE | 2023-09-02 17:11 | P.CNS ---
Date of Consult: 09/02/23 Reason for Consult: Hyponatremia Requesting Physician: Madina Farmer Chief Complaint: Hyperglycemia History of Present Illness: 73-year-old female with a past medical history of Parkinson's, insulin-dependent diabetes mellitus, medication noncompliance, hypertension, hyperlipidemia, leukemia, immunosuppression, neuropathy, chronic pain, presents to the emergency room with hyperglycemia. She reports she was referred to the emergency room for high blood glucose on labs from oncology. She reports she lives alone, son brought her to to the emergency room. She reports not taking her insulin today or yesterday, she reports urinary frequency, burning with urination. She denies chest pain, shortness of breath, dizziness, edema. Plan to admit for HHNK, pseudohyponatremia, acute cystitis. Nephrology consulted to manage sodium, IV fluids. Laboratory evaluation sodium 126 blood glucose greater than 900, thrombocytopenia platelets 71 acute kidney injury unknown baseline BUN 19 creatinine 1.21 estimated GFR 47, chest x-ray IMPRESSION: No acute intrathoracic process suspected. 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 11:57 Pt reports sent in by her PCP for "low salt". Patient reports fatigue and malaise rn lately. No fever. NO head injury. No focal neurological deficit. . Onset: The symptoms/episode began/occurred at an unknown time. It is unknown whether or not the patient has had similar symptoms in the past. Allergies Penicillins Allergy (Verified 06/20/22 13:49) cramps Home medications list reviewed: Yes Home Medications: Atorvastatin Calcium 1 tab PO DAILY 07/11/21 Cetirizine HCl 1 tab PO DAILY 07/11/21 Dulaglutide [Trulicity] 1 syr SQ SEECOM 07/11/21 Furosemide 1 tab PO DAILY 07/11/21 Insulin Degludec [Tresiba Flextouch U-100] 60 units SQ BEDTIME 07/11/21 Insulin Lispro [Humalog] 0 - 15 unit SQ TID 07/11/21 Metformin ER [Glucophage ER*] 2 tab PO DAILY 07/11/21 Sertraline [Zoloft*] 25 mg PO DAILY 07/11/21 Carbidopa/Levodopa [Carbidopa-Levo 25-100 mg Odt] 2 tab PO TID 06/20/22 Hydrocodone 5/APAP 325 [[place] 5/325*] 1 tab PO TID PRN 06/20/22 [place]-3/Dha/Epa/Fish Oil [Fish Oil 1,000 mg Softgel] 1 tab PO DAILY 06/20/22 - Past Medical/Surgical History Diabetic: Yes -: Leukemia -: Hypertension -: Hyperlipidemia -: Parkinson -: Insulin-dependent diabetes mellitus -: Chronic pain -: Breast biopsy -: Partial hystrectomy -: hand surgery -: Gall bladder stone removal - Family History Mother Medical History: Cancer Sister Medical History: Cancer - Social History Alcohol use: No CD- Drugs: No Caffeine use: Yes Place of Residence: Home Review of Systems 10-point ROS is otherwise unremarkable General: Weakness, Malaise Musculoskeletal: Back Pain Neurological: Other (LE Neuropathy) Physical Examination Temp Pulse Resp BP Pulse Ox 74 20 160/69 H 95 09/02/23 16:00 09/02/23 16:00 09/02/23 16:00 09/02/23 16:00 General: Alert, In no apparent distress, Oriented x3, Cooperative HEENT: Atraumatic Neck: Supple Respiratory: Clear to auscultation bilaterally Cardiovascular: No edema, Regular rate/rhythm Gastrointestinal: Soft and benign, Non-distended Musculoskeletal: No clubbing, No contractures Integumentary: No rashes, No cyanosis Neurological: Normal speech Laboratory Data (last 24 hrs) 09/02/23 09/02/23 11:50 11:50 WBC 5.20 Hgb 14.1 Hct 41.5 Plt Count 71 L Sodium 126 L Potassium 4.4 BUN 20 H Creatinine 1.39 H Glucose 916 H* Imagings Data: [id number] EXAM DESCRIPTION: RAD - Chest Single View - 09/02/2023 1:16 pm CLINICAL HISTORY: tachypnea Chest pain. COMPARISON: Chest Single View dated 08/06/2023; Chest Single View dated 07/10/2021; Chest Single View dated 07/09/2021 FINDINGS: Portable technique limits examination quality. The lungs are grossly clear. The heart is normal in size. No displaced fractures. IMPRESSION: No acute intrathoracic process suspected. Conclusions/Impression: Stage I MAURIZIO likely due to hypovolemia -No NSAIDs -Continue IVF -Hold furosemide Pseudohyponatremia in the setting of hyperglycemia -Correct Hyperglycemia -Repeat BMP as ordered Hypokalemia -Replete as ordered HTN -IV Hydralazine prn DM II with hyperglycemia Glucosuria -Insulin gtt -Hold Metformin Hospitalist and ER notes reviewed Thank you kindly for the consultation
[2023-09-02] MEDS ORDERED: ACETAMINOPHEN 500 MG TAB ONE (17:37)
[2023-09-02] MEDS ORDERED: PIPERACIL/TAZO 3.375 GM VIAL IV ONE (17:38)
[2023-09-02] MEDS ORDERED: NA CHLORIDE 0.9% 100 ML ONE (17:40)
[2023-09-02] MEDS: ACETAMINOPHEN 500 MG TAB PO PRN (17:53)
[2023-09-02] MEDS: PIPER TAZO 3.375 GM in NA CHLORIDE 0.9% 100 ML IV SCH (17:53)
[2023-09-02 19:13] LABS: Anion Gap 9.5 mEq/L (5.0-15.0); Potassium 3.5 mEq/L (3.5-5.1)
[2023-09-02] MEDS ORDERED: HYDRALAZINE HCL 20 MG/ML VIAL IV PRN (21:08)
[2023-09-02 22:11] VITALS: O2SAT 98
[2023-09-02] MEDS: POTASSIUM CL SA 10 MEQ TAB PO ONE (22:37)
[2023-09-02] MEDS: D5 0.45 NS 1,000 ML IV SCH (22:52)
[2023-09-03 02:12] LABS: Anion Gap 9.9 mEq/L (5.0-15.0); Potassium 3.9 mEq/L (3.5-5.1)
[2023-09-03] MEDS ORDERED: ACETAMINOPHEN 500 MG TAB ONE (02:16)
[2023-09-03 05:03] LABS: Absolute Eosinophils 0.1 K/uL (0-0.5); Absolute Lymphocytes (CBC) 5.4 K/uL (0.7-4.9); Absolute Monocytes 0.2 K/uL (0.1-1.3); Absolute Neutrophil 2.7 K/uL (1.8-8.0); Basophils % 0.3 % (0-1.3); Eosinophils % 0.6 % (0-4.4); Hematocrit 36.2 % (36.0-45.0); Hemoglobin 12.8 g/dL (12.0-15.0); MCH 32.9 pg (27.0-35.0); MCHC 35.5 g/dL (32.0-36.0); MCV 92.5 fL (80-100); MPV 9.5 fL (7.6-11.3); Monocytes % 2.7 % (3.3-12.3); Neutrophils % 32.5 % (41.7-73.7); Nucleated Red Blood Cells % 0.1 % (0-0); Platelets 87 thou/uL (152-406); RBC Red Blood Cell Count 3.91 M/uL (3.86-4.86); Red Cell Distribution Width 13.2 % (12.1-15.2)
[2023-09-03 05:07] LABS: Lymphocytes % 63.9 % (15.3-44.8)
[2023-09-03 05:09] LABS: Magnesium 1.5 mg/dL (1.6-2.4)
[2023-09-03 05:42] LABS: Anion Gap 12.1 mEq/L (5.0-15.0); Potassium 3.1 mEq/L (3.5-5.1)
--- NOTE | 2023-09-03 07:42 | P.PN ---
Subjective Date of Service: 09/03/23 Chief Complaint: Hyperglycemia Alert and oriented x 3, reported urinary frequency with hyperglycemia, no reported fever General: Alert, In no apparent distress, Oriented x3, Cooperative HEENT: Atraumatic Neck: Supple Respiratory: Clear to auscultation bilaterally Cardiovascular: No edema, Regular rate/rhythm Gastrointestinal: Soft and benign, Non-distended Musculoskeletal: No clubbing, No contractures Integumentary: No rashes, No cyanosis Neurological: Normal speech <JanieSultana - Last Filed: 09/03/23 13:55> Date of Service: 09/04/23 <NoahMadina riggins Sheila - Last Filed: 09/04/23 22:29> Review of Systems Per HPI <JanieSultana - Last Filed: 09/03/23 13:55> Physical Examination - Vital Signs Temperature: 98 F Blood Pressure: 133/59 Pulse: 55 Respirations: 29 Pulse Ox (%): 95 - Studies Laboratory Data (last 24 hrs) 09/02/23 09/02/23 11:50 11:50 WBC 5.20 Hgb 14.1 Hct 41.5 Plt Count 71 L Sodium 126 L Potassium 4.4 BUN 20 H Creatinine 1.39 H Glucose 916 H* <JanieSultana - Last Filed: 09/03/23 13:55> Assessment And Plan - Plan Assessment plan HHNK Pseudohyponatremia insulin-dependent diabetes mellitus medication noncompliance Admit to ICU, nephrology, consult for hyponatremia Insulin drip, every hour blood sugars, every 4 hours BMP and mag Resume home long-acting insulin Transition to D5 half after blood glucose less than 200 referred to the emergency room for high blood glucose on labs from oncology. She reports she lives alone, son brought her to to the emergency room. She reports not taking her insulin today or yesterday, she reports urinary frequency, burning with urination. Blood glucose greater than 900 sodium 126 blood glucose greater than 900, chest x-ray IMPRESSION: No acute intrathoracic process suspected. 09/02 1300 Gap closed will discontinue insulin drip, transition to long-acting insulin, high sliding scale transition to the floor today acute kidney injury unknown baseline improved BUN 19 creatinine 1.21 estimated GFR 47, thrombocytopenia platelets 71, 81 Trend platelets hypertension leukemia immunosuppression Resume appropriate home medication Acute cystitis Yeast infection IV Zosyn, IV fluconazole neuropathy Resume appropriate home meds Full code DVT SCD Diet diabetic diet Disposition patient lives at home independently, ambulates with a rolling walker Discharge Plan: Home - Code Status/Comfort Care Code Status: Full Code Critical Care: No Time Spent Managing PTS Care (In Minutes): 55 <Sultana Lima - Last Filed: 09/03/23 13:55> - Plan Pt seen and examined. I agree with the note by the BLUEPRINTING MACHINE OPERATOR. Will continue insulin drip. Will transition to subq insulin soon. Monitor electrolytes <Madina Farmer - Last Filed: 09/04/23 22:29>
[2023-09-03] MEDS ORDERED: KCL 20 MEQ/100 mL IVPB 20 MEQ/100 ML BAG IV SCH (08:00)
[2023-09-03] MEDS ORDERED: POTASSIUM CL SA 10 MEQ TAB PO SCH (08:00)
[2023-09-03] MEDS ORDERED: FUROSEMIDE 20 MG TABLET ONE (08:39)
[2023-09-03] MEDS ORDERED: INSULIN GLARGINE 100 UNIT/ML SQ ONE ×2 (08:40→22:03)
[2023-09-03] MEDS ORDERED: CETIRIZINE HCL 5 MG TABLET ONE (08:40)
[2023-09-03] MEDS: FUROSEMIDE 20 MG TABLET PO SCH (08:42)
[2023-09-03] MEDS: CETIRIZINE HCL 5 MG TABLET PO SCH (08:42)
[2023-09-03] MEDS: POTASSIUM PHOS IN 0.9 % NACL 15 MMOL/250 ML BAG IV ONE (08:43)
[2023-09-03] MEDS: **PT MED**Carbidopa/Levodopa [Carbidopa-Levo 25-100 Mg Odt] Tab.Rapdis) PO SCH (08:43)
[2023-09-03] MEDS: POTASSIUM CL SA 10 MEQ TAB PO ONE ×2 (08:43→22:43)
[2023-09-03] MEDS: Magnesium Sulfate 2gm IVPB 2 G/50 ML BAG IV ONE (08:43)
[2023-09-03] MEDS: INSULIN GLARGINE 100 UNIT/ML SQ SCH (08:44)
[2023-09-03] MEDS: DOCOSAHEXANOIC AC/EPA 1000 MG PO SCH (08:44)
[2023-09-03] MEDS: ATORVASTATIN 40 MG TAB PO SCH (08:44)
[2023-09-03] MEDS: SERTRALINE HCL 50 MG TAB PO SCH (08:44)
[2023-09-03 11:38] LABS: Anion Gap 7.6 mEq/L (5.0-15.0); Magnesium 1.4 mg/dL (1.6-2.4); Potassium 3.6 mEq/L (3.5-5.1)
[2023-09-03] MEDS ORDERED: GLUCAGON 1 MG/VIAL IM PRN (12:01)
[2023-09-03] MEDS ORDERED: D50W 25 GM/50 ML SYRINGE IV PRN (12:01)
[2023-09-03] MEDS ORDERED: D10W 125 ML IV PRN (12:04)
[2023-09-03] MEDS: POTASS/SODIUM PHOSPHATE 1 PKT POWD.PACK PO SCH (12:56)
[2023-09-03] MEDS ORDERED: NA CHLORIDE 0.9% 100 ML ONE (15:13)
[2023-09-03] MEDS ORDERED: PIPERACIL/TAZO 3.375 GM VIAL IV ONE (15:13)
[2023-09-03 16:10] LABS: Anion Gap 11.8 mEq/L (5.0-15.0); Magnesium 1.8 mg/dL (1.6-2.4); Potassium 3.8 mEq/L (3.5-5.1)
[2023-09-03] MEDS ORDERED: INSULIN LISPRO 100 UNIT/ML ONE ×2 (16:17→22:13)
[2023-09-03] MEDS: INSULIN LISPRO 100 UNIT/ML SQ SCH ×2 (16:29→22:29)
[2023-09-03] MEDS ORDERED: INSULIN LISPRO 100 UNIT/ML SQ SCH (16:30)
[2023-09-03] MEDS ORDERED: HYDROCODONE/APAP 5/325 MG TAB ONE (16:45)
[2023-09-03] MEDS: HYDROCODONE/APAP 5/325 MG TAB PO PRN (16:46)
[2023-09-03 19:44] LABS: Anion Gap 13.6 mEq/L (5.0-15.0)
[2023-09-03 19:45] LABS: Magnesium 1.7 mg/dL (1.6-2.4); Potassium 3.6 mEq/L (3.5-5.1)
--- NOTE | 2023-09-03 21:25 | P.PN ---
Date of Service: 09/03/23 Vital Signs Temp Pulse Resp BP Pulse Ox 97.4 F 90 24 H 137/58 L 96 09/03/23 16:00 09/03/23 18:00 09/03/23 18:00 09/03/23 18:00 09/03/23 18:00 Medications Acetaminophen (Acetaminophen 500 Mg Tab) 500 mg PO Q4HP PRN PRN Reason: Pain scale 5-7 (Moderate) Last Admin: 09/03/23 02:16 Dose: 500 mg Hydrocodone Bitart/Acetaminophen (Hydrocodone/Apap 5/325 Mg Tab) 1 tab PO TID PRN PRN Reason: Pain scale 5-7 (Moderate) Last Admin: 09/03/23 16:46 Dose: 1 tab Atorvastatin Calcium (Atorvastatin 40 Mg Tab) 40 mg PO DAILY PENDING SALE TO [facility] Last Admin: 09/03/23 08:44 Dose: 40 mg Cetirizine HCl (Cetirizine Hcl 5 Mg Tablet) 10 mg PO DAILY PENDING SALE TO [facility] Last Admin: 09/03/23 08:42 Dose: 10 mg Docusate Sodium (Docusate Na 100 Mg Cap) 100 mg PO BID PENDING SALE TO [facility] Ergocalciferol (Drisdol (Vitamin D=Ergocalciferol) 48317 Unit Cap) 50,000 unit PO Q48H PENDING SALE TO [facility] Stop: 09/06/23 09:01 Fish Oil (Docosahexanoic Ac/Epa 1000 Mg) 1,000 mg PO DAILY PENDING SALE TO [facility] Last Admin: 09/03/23 08:44 Dose: 1,000 mg Furosemide (Furosemide 20 Mg Tablet) 20 mg PO DAILY PENDING SALE TO [facility] Last Admin: 09/03/23 08:42 Dose: 20 mg Gabapentin (Gabapentin 300 Mg Cap) 300 mg PO BID PENDING SALE TO [facility] Glucagon (Glucagon 1 Mg/Vial) 1 mg IM 1X PRN; Protocol PRN Reason: HYPOGLYCEMIA Home Med (Carbidopa/Levodopa [Carbidopa-Levo 25-100 Mg Odt]) 3 tab PO TID PENDING SALE TO [facility] Hydralazine HCl (Hydralazine Hcl 20 Mg/Ml Vial) 10 mg IV Q4HP PRN PRN Reason: Goal to achieve SBP in comment Piperacillin Sod/Tazobactam (Sod 3.375 gm/ Sodium Chloride) 100 mls @ 25 mls/hr IV Q8HR BETO; Protocol Last Admin: 09/03/23 16:29 Dose: 100 mls Fluconazole (Diflucan 200 Mg/100 Ml Ivpb (Premix)) 200 mg in 100 mls @ 100 mls/hr IV Q24H BETO; Protocol Stop: 09/04/23 15:59 Last Admin: 09/03/23 15:03 Dose: 100 mls Dextrose (Dextrose 10% Water Iv Soln.) 125 mls @ 0 mls/hr IV PRN PRN; Protocol PRN Reason: HYPOGLYCEMIA Lactated Ringer's (Lactated Ringers) 1,000 mls @ 100 mls/hr IV .Q10H BETO Insulin Glargine (Insulin Glargine 100 Unit/Ml) 20 unit SQ BID BETO Last Admin: 09/03/23 08:44 Dose: 20 unit Insulin Human Lispro (Insulin Lispro 100 Unit/Ml) 0 unit SQ ACHS BETO; Protocol Ondansetron HCl (Ondansetron 4 Mg/2 Ml Vial) 4 mg IV Q6HP PRN PRN Reason: NAUSEA / VOMITING Potassium Chloride (Potassium Cl Sa 10 Meq Tab) 40 meq PO 1X ONE Stop: 09/03/23 21:19 Sertraline HCl (Sertraline Hcl 50 Mg Tab) 25 mg PO DAILY PENDING SALE TO [facility] Last Admin: 09/03/23 08:44 Dose: 25 mg Assessment/ Plan: Nephrology No dyspnea No chest pain No acute events overnight Vitals, medications, blood work and imaging reviewed in the chart General: Alert, In no apparent distress, Oriented x3, Cooperative HEENT: Atraumatic Neck: Supple Respiratory: Clear to auscultation bilaterally Cardiovascular: No edema, Regular rate/rhythm Gastrointestinal: Soft and benign, Non-distended Musculoskeletal: No clubbing, No contractures Integumentary: No rashes, No cyanosis Neurological: Normal speech Laboratory Data (last 24 hrs) 09/02/23 09/02/23 11:50 11:50 WBC 5.20 Hgb 14.1 Hct 41.5 Plt Count 71 L Sodium 126 L Potassium 4.4 BUN 20 H Creatinine 1.39 H Glucose 916 H* Imagings Data: [id number] EXAM DESCRIPTION: RAD - Chest Single View - 09/02/2023 1:16 pm CLINICAL HISTORY: tachypnea Chest pain. COMPARISON: Chest Single View dated 08/06/2023; Chest Single View dated 07/10/2021; Chest Single View dated 07/09/2021 FINDINGS: Portable technique limits examination quality. The lungs are grossly clear. The heart is normal in size. No displaced fractures. IMPRESSION: No acute intrathoracic process suspected. Conclusions/Impression: Stage I MAURIZIO likely due to hypovolemia -No NSAIDs -Change IVF to LR Pseudohyponatremia in the setting of hyperglycemia -Change IVF to LR Hypokalemia -Replete as ordered Hypomagnesemia -Replete as ordered Hypophospatemia -Replete as ordered HTN -IV Hydralazine prn DM II with hyperglycemia Glucosuria -Continue Lantus -CHUY -Hold Metformin Hospitalist note reviewed
[2023-09-03] MEDS ORDERED: GABAPENTIN 300 MG CAP ONE (22:08)
[2023-09-03] MEDS: CARBIDOPA LEVO PO SCH (22:28)
[2023-09-03] MEDS: GABAPENTIN 300 MG CAP PO SCH (22:29)
[2023-09-03] MEDS: Ringers Lactate 1,000 ML IV SCH (22:29)
[2023-09-03] MEDS ORDERED: POTASSIUM CL SA 10 MEQ TAB PO ONE (22:42)
[2023-09-04 05:16] LABS: Absolute Eosinophils 0.1 K/uL (0-0.5); Absolute Lymphocytes (CBC) 4.9 K/uL (0.7-4.9); Absolute Monocytes 0.2 K/uL (0.1-1.3); Basophils % 0.5 % (0-1.3); Eosinophils % 1.3 % (0-4.4); Hematocrit 37.1 % (36.0-45.0); Hemoglobin 12.8 g/dL (12.0-15.0); MCH 32.5 pg (27.0-35.0); MCHC 34.5 g/dL (32.0-36.0); MCV 94.3 fL (80-100); MPV 9.5 fL (7.6-11.3); Monocytes % 2.3 % (3.3-12.3); Neutrophils % 27.5 % (41.7-73.7); Platelets 88 thou/uL (152-406); RBC Red Blood Cell Count 3.93 M/uL (3.86-4.86); Red Cell Distribution Width 13.6 % (12.1-15.2)
[2023-09-04 05:44] LABS: AST/SGOT 14 U/L (15-37); Albumin 2.7 g/dL (3.4-5.0); Albumin/Globulin Ratio 0.8 (1.1-1.8); Alkaline Phosphatase 54 U/L (45-117); Anion Gap 9.9 mEq/L (5.0-15.0); BUN Blood Urea Nitrogen 9 mg/dL (7-18); Bicarbonate 26 mEq/L (21-32); Bilirubin Total 0.7 mg/dL (0.2-1.0); Globulin 3.3 g/dL (2.3-3.5); Glomerular Filtration Rate 71 ml/min (=/>90); Glucose Level 271 mg/dL (74-106); Magnesium 1.7 mg/dL (1.6-2.4); Phosphorus 2.9 mg/dL (2.5-4.9); Potassium 3.9 mEq/L (3.5-5.1); Sodium Level 135 mEq/L (136-145); Uric Acid 4.6 mg/dL (2.6-6.0)
[2023-09-04 05:46] LABS: Lymphocytes % 68.4 % (15.3-44.8)
[2023-09-04 05:48] LABS: ALT/SGPT < 10 U/L (13-56)
[2023-09-04] MEDS ORDERED: D50W 25 GM/50 ML SYRINGE IV PRN (07:19)
[2023-09-04] MEDS ORDERED: GLUCAGON 1 MG/VIAL IM PRN (07:19)
--- NOTE | 2023-09-04 08:14 | P.PN ---
Subjective Date of Service: 09/04/23 Chief Complaint: Hyperglycemia Alert and oriented x 3, reported urinary frequency with hyperglycemia, no reported fever General: Alert, In no apparent distress, Oriented x3, Cooperative HEENT: Atraumatic Neck: Supple Respiratory: Clear to auscultation bilaterally Cardiovascular: No edema, Regular rate/rhythm Gastrointestinal: Soft and benign, Non-distended Musculoskeletal: No clubbing, No contractures Integumentary: No rashes, No cyanosis Neurological: Normal speech <Sultana Lima - Last Filed: 09/04/23 08:14> Date of Service: 09/04/23 <Madina Farmer Sheila - Last Filed: 09/04/23 12:29> Physical Examination - Vital Signs Temperature: 97 F Blood Pressure: 128/45 Pulse: 69 Respirations: 24 Pulse Ox (%): 95 <Sultana Lima - Last Filed: 09/04/23 08:14> Assessment And Plan - Plan Assessment plan HHNK Pseudohyponatremia insulin-dependent diabetes mellitus medication noncompliance Admit to ICU, nephrology, consult for hyponatremia Insulin drip, every hour blood sugars, every 4 hours BMP and mag Resume home long-acting insulin Transition to D5 half after blood glucose less than 200 referred to the emergency room for high blood glucose on labs from oncology. She reports she lives alone, son brought her to to the emergency room. She reports not taking her insulin today or yesterday, she reports urinary frequency, burning with urination. Blood glucose greater than 900 sodium 126 blood glucose greater than 900, chest x-ray IMPRESSION: No acute intrathoracic process suspected. 09/02 1300 Gap closed will discontinue insulin drip, transition to long-acting insulin, high sliding scale transition to the floor today acute kidney injury unknown baseline improved BUN 19 creatinine 1.21 estimated GFR 47, thrombocytopenia platelets 71, 81 Trend platelets hypertension leukemia immunosuppression Resume appropriate home medication Acute cystitis Yeast infection IV Zosyn, IV fluconazole neuropathy Resume appropriate home meds Full code DVT SCD Diet diabetic diet Disposition patient lives at home independently, ambulates with a rolling walker <Sultana Lima - Last Filed: 09/04/23 08:14> Physician Review Additional Text: 09/04/23 12:28 Pt seen and examined. I agree with note by the SELF PROPELLED MINING MACHINE OPERATOR. HHS has improved. Off insulin drip. Will optimize insulin regimen with lantus 15u BID, lispro 10u with meal and ADA diet. Pt needs to be compliant with insulin regimen. Will dc once blood sugar is better. <Madina Farmer - Last Filed: 09/04/23 12:29>
[2023-09-04] MEDS ORDERED: INSULIN GLARGINE 100 UNIT/ML SQ ONE (09:07)
[2023-09-04] MEDS: DOCUSATE NA 100 MG CAP PO SCH (09:13)
[2023-09-04] MEDS: DRISDOL (VITAMIN D=ERGOCALCIFEROL) 50000 UNIT CAP PO SCH (09:13)
[2023-09-04] MEDS: INSULIN GLARGINE 100 UNIT/ML SQ SCH (09:14)
[2023-09-04] MEDS ORDERED: FUROSEMIDE 20 MG TABLET ONE (09:29)
[2023-09-04] MEDS ORDERED: GABAPENTIN 300 MG CAP ONE (10:17)
[2023-09-04] MEDS ORDERED: INSULIN LISPRO 100 UNIT/ML ONE ×2 (10:17→13:02)
[2023-09-04] MEDS ORDERED: CETIRIZINE HCL 5 MG TABLET ONE (10:17)
[2023-09-04] MEDS: INSULIN LISPRO 100 UNIT/ML SQ SCH (10:19)
--- NOTE | 2023-09-04 12:42 | P.DS ---
Admission Date: 09/02/23 Discharge Date: 09/04/23 Reason for Admission: Hyperglycemia Brief History of Present Illness: 73-year-old female with a past medical history of Parkinson's, insulin-dependent diabetes mellitus, medication noncompliance, hypertension, hyperlipidemia, leukemia, immunosuppression, neuropathy, chronic pain, presents to the emergency room with hyperglycemia. She reports she was referred to the emergency room for high blood glucose on labs from oncology. She reports she lives alone, son brought her to to the emergency room. She reports not taking her insulin today or yesterday, she reports urinary frequency, burning with urination. She denies chest pain, shortness of breath, dizziness, edema. Plan to admit for HHNK, pseudohyponatremia, acute cystitis. Nephrology consulted to manage sodium, IV fluids. Laboratory evaluation sodium 126 blood glucose greater than 900, thrombocytopenia platelets 71 acute kidney injury unknown baseline BUN 19 creatinine 1.21 estimated GFR 47, chest x-ray IMPRESSION: No acute intrathoracic process suspected. - Physical Exam General: Alert, In no apparent distress, Oriented x3 HEENT: Atraumatic, Normocephalic Neck: JVD not distended Respiratory: Clear to auscultation bilaterally, Normal air movement Cardiovascular: Normal pulses, Regular rate/rhythm Gastrointestinal: Normal bowel sounds, Soft and benign Musculoskeletal: No clubbing, No swelling Integumentary: No rashes, No breakdown Neurological: Normal speech, Normal strength at 5/5 x4 extr Hospital Course: 73 year-old female patient with a past medical history of Parkinson's, insulin-d ependent diabetes mellitus, presented with elevated blood glucose. Was noted to have HH NK, with hyperglycemia blood glucose greater than 900. Condition improved with insulin drip, placed in ICU. Patient tolerating diet, stable for discharge to home with follow-up appointment with primary care physician. PROBLEM: HHNK, blood glucose greater than 900 Medication noncompliance Diabetes with hyperglycemia Continue home medicines as previously prescribed GOAL: Clear understanding of disease process INSTRUCTIONS: Physician Discharge Instructions: -Follow-up with PCP in 1 to 2 weeks -Please call if any questions regarding hospital stay -Please call nursing station at [phone] if any nursing or medication questions -Return to the emergency room if symptoms worsen Diet: ADA, low sodium Activity: Fall precautions <Sultana Lima - Last Filed: 09/04/23 12:44> Admission Date: 09/02/23 Discharge Date: 09/04/23 Hospital Course: Pt seen and examined. I agree with the note by the RN DIABETES EDUCATOR. Hperglycemia resolved s/p insulin drip. A1c is > 14. Pt was advised to be compliant with home insulin regimen and follow up with her PCP within 1 week in order to check her blood glucose and adjust insulin. <Madina Farmer Sheila - Last Filed: 09/04/23 22:19> Disposition: ROUTINE DISCHARGE Discharge Condition: GOOD Vital Signs/Physical Exam: Temp Pulse Resp BP Pulse Ox 97 F 72 20 151/56 H 92 09/04/23 08:14 09/04/23 10:00 09/04/23 10:00 09/04/23 10:00 09/04/23 10:00 Laboratory Data at Discharge: WBC 7.20 thou/uL (4.3-10.9) 09/04/23 04:56 Hgb 12.8 g/dL (12.0-15.0) 09/04/23 04:56 Hct 37.1 % (36.0-45.0) 09/04/23 04:56 Plt Count 88 thou/uL (152-406) L 09/04/23 04:56 Sodium 135 mEq/L (136-145) L D 09/04/23 04:56 Potassium 3.9 mEq/L (3.5-5.1) 09/04/23 04:56 BUN 9 mg/dL (7-18) 09/04/23 04:56 Creatinine 0.86 mg/dL (0.55-1.02) 09/04/23 04:56 Glucose 271 mg/dL (74-106) H 09/04/23 04:56 Uric Acid 4.6 mg/dL (2.6-6.0) 09/04/23 04:56 Phosphorus 2.9 mg/dL (2.5-4.9) 09/04/23 04:56 Magnesium 1.7 mg/dL (1.6-2.4) 09/04/23 04:56 Total Bilirubin 0.7 mg/dL (0.2-1.0) 09/04/23 04:56 AST 14 U/L (15-37) L 09/04/23 04:56 ALT < 10 U/L (13-56) L 09/04/23 04:56 Alkaline Phosphatase 54 U/L (45-117) 09/04/23 04:56 <Sultana Lima - Last Filed: 09/04/23 12:44> Vital Signs/Physical Exam: Temp Pulse Resp BP Pulse Ox 97.2 F 84 18 146/49 H 98 09/04/23 16:00 09/04/23 17:00 09/04/23 17:00 09/04/23 17:00 09/04/23 17:00 Laboratory Data at Discharge: WBC 7.20 thou/uL (4.3-10.9) 09/04/23 04:56 Hgb 12.8 g/dL (12.0-15.0) 09/04/23 04:56 Hct 37.1 % (36.0-45.0) 09/04/23 04:56 Plt Count 88 thou/uL (152-406) L 09/04/23 04:56 Sodium 135 mEq/L (136-145) L D 09/04/23 04:56 Potassium 3.9 mEq/L (3.5-5.1) 09/04/23 04:56 BUN 9 mg/dL (7-18) 09/04/23 04:56 Creatinine 0.86 mg/dL (0.55-1.02) 09/04/23 04:56 Glucose 271 mg/dL (74-106) H 09/04/23 04:56 Uric Acid 4.6 mg/dL (2.6-6.0) 09/04/23 04:56 Phosphorus 2.9 mg/dL (2.5-4.9) 09/04/23 04:56 Magnesium 1.7 mg/dL (1.6-2.4) 09/04/23 04:56 Total Bilirubin 0.7 mg/dL (0.2-1.0) 09/04/23 04:56 AST 14 U/L (15-37) L 09/04/23 04:56 ALT < 10 U/L (13-56) L 09/04/23 04:56 Alkaline Phosphatase 54 U/L (45-117) 09/04/23 04:56 <Madina Farmer - Last Filed: 09/04/23 22:19> Diet: ADA Activity: Ad chela Time spent managing pt's care (in minutes): 55 <Sultana Lima - Last Filed: 09/04/23 12:44> <Madina Farmer - Last Filed: 09/04/23 22:19> Home Medications: Atorvastatin Calcium 1 tab PO DAILY 07/11/21 Cetirizine HCl 1 tab PO DAILY 07/11/21 Dulaglutide [Trulicity] 1 syr SQ SEECOM 07/11/21 Furosemide 1 tab PO DAILY 07/11/21 Insulin Degludec [Tresiba Flextouch U-100] 60 units SQ BEDTIME 07/11/21 Insulin Lispro [Humalog] 0 - 15 unit SQ TID 07/11/21 Metformin ER [Glucophage ER*] 2 tab PO DAILY 07/11/21 Sertraline [Zoloft*] 25 mg PO DAILY 07/11/21 Hydrocodone 5/APAP 325 [[place] 5/325*] 1 tab PO TID PRN 06/20/22 [place]-3/Dha/Epa/Fish Oil [Fish Oil 1,000 mg Softgel] 1 tab PO DAILY 06/20/22 Carbidopa/Levodopa [Carbidopa-Levodopa 25-100 Tab] 3 tab PO TID 09/03/23 Vitamin D [Drisdol*] 50,000 unit PO Q7D 49 Days #7 cap 09/04/23 New Medications: Vitamin D [Drisdol*] 50,000 unit PO Q7D 49 Days #7 cap Physician Discharge Instructions: 73 year-old female patient with a past medical history of Parkinson's, insulin- dependent diabetes mellitus, presented with elevated blood glucose. Was noted to have HH NK, with hyperglycemia blood glucose greater than 900. Condition improved with insulin drip, placed in ICU. Patient tolerating diet, stable for discharge to home with follow-up appointment with primary care physician. PROBLEM: HHNK, blood glucose greater than 900 Medication noncompliance Diabetes with hyperglycemia Educated on diabetic diet Record blood sugars at home take blood sugar log to primary care appointment Continue home medicines as previously prescribed GOAL: Clear understanding of disease process INSTRUCTIONS: Physician Discharge Instructions: -Follow-up with PCP in 1 to 2 weeks -Please call if any questions regarding hospital stay -Please call nursing station at [phone] if any nursing or medication questions -Return to the emergency room if symptoms worsen Diet: ADA, low sodium Activity: Fall precautions Followup: TAISHA ANTHONY [Primary Care Provider] -
--- NOTE | 2023-09-04 14:32 | EKG ---
Test Date: 2023-09-02 Test Time: 10:38:48 Ware Server: ALP MEASUREMENT RESULTS: Intervals: Rate: 79 NE: 158 QRSD: 80 QT: 406 QTc: 465 [place]: P: 60 NE: 158 QRS: 56 T: 94 INTERPRETIVE STATEMENTS: Normal sinus rhythm Normal ECG Compared to ECG 09/02/2023 10:38:11 ST (T wave) deviation no longer present Electronically Signed On 09-04-23 14:24:41 CDT by Josh Bell
[2023-09-04 16:30] VITALS: TEMP 97.2
[2023-09-04 17:35] VITALS: BP 146/49
== END 2023-09-04 19:08 | disposition home or self-care (01) | DRG 638 ==
LOC: ER 11:03 → ERHOLD 13:48 → 3RD-ICU 19:48
PROVIDERS: ADMIT Hospitalist; ATTEND Hospitalist
DX: E11.00 Type 2 diabetes mellitus with hyperosmolarity without nonketotic hyperglycemic-hyperosmolar coma (NKHHC) (principal); C95.90 Leukemia, unspecified not having achieved remission; E87.1 Hypo-osmolality and hyponatremia; N30.00 Acute cystitis without hematuria; N17.9 Acute kidney failure, unspecified; E11.40 Type 2 diabetes mellitus with diabetic neuropathy, unspecified; I10 Essential (primary) hypertension; E86.0 Dehydration; D69.6 Thrombocytopenia, unspecified; E78.5 Hyperlipidemia, unspecified; E83.42 Hypomagnesemia; E87.6 Hypokalemia; E83.39 Other disorders of phosphorus metabolism; G20.A1 Parkinson's disease without dyskinesia, without mention of fluctuations; T38.3X6A Underdosing of insulin and oral hypoglycemic [antidiabetic] drugs, initial encounter; Z60.2 Problems related to living alone; Z88.0 Allergy status to penicillin; Z79.4 Long term (current) use of insulin; Z79.84 Long term (current) use of oral hypoglycemic drugs; Z91.148 Patient's other noncompliance with medication regimen for other reason; Z91.128 Patient's intentional underdosing of medication regimen for other reason; Z28.310 Unvaccinated for COVID-19; Z90.711 Acquired absence of uterus with remaining cervical stump; Z79.899 Other long term (current) drug therapy
CPT/HCPCS: 36415; 71045; 80048; 80053; 81003; 82570; 82947; 83036; 83735; 83935; 84100; 84300; 84550; 85025; 93005; 96372; 96374; 99285; J1450; J1815; J2543; J3475; J7030; J7120; J7799